=== PATIENT | male | born 1990 | race Two or more races ===

== ENCOUNTER 2021-04-07 11:50 | Emergency (ER) | payer OTHER, SELFPAY ==
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
[2021-04-07 12:23] VITALS: BP 138/87; PULSE 90; RESP 17; TEMP 36.5; O2SAT 98; BMI 33.7
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
== END 2021-04-07 13:44 | disposition home or self-care (01) ==
PROVIDERS: Emergency Provider Emergency Medicine; PCP Internal Medicine
DX: S16.1XXA Strain of muscle, fascia and tendon at neck level, initial encounter (principal); V47.5XXA Car driver injured in collision with fixed or stationary object in traffic accident, initial encounter; Y93.89 Activity, other specified; Y92.410 Unspecified street and highway as the place of occurrence of the external cause; Y99.9 Unspecified external cause status
CPT/HCPCS: 72040; 99283

== ENCOUNTER 2021-04-10 04:56 | Emergency (ER) | payer OTHER, SELFPAY | END 2021-04-10 06:53 | disposition left against medical advice (07) | PROVIDERS: Emergency Provider Emergency Medicine; PCP Internal Medicine | DX: R68.89 Other general symptoms and signs (principal) ==

== ENCOUNTER 2021-04-11 09:36 | Emergency (ER) | payer OTHER, SELFPAY ==
--- NOTE | ~2021-04-11 | XR_ITS ---
EXAMINATION: XR CHEST CLINICAL INFORMATION: Cough. COMPARISON: Chest 03/10/2018. TECHNIQUE: Portable AP upright view of the chest was obtained. FINDINGS: No significant abnormality is noted involving the heart, lungs, mediastinum, bony thorax or soft tissues. XR/XR chest 1V IMPRESSION: Normal chest.
[2021-04-11 09:43] VITALS: BP 118/94; PULSE 125; RESP 22; TEMP 38.8; O2SAT 99; BMI 32.3
[2021-04-11 11:22] LABS: Influenza A PCR NEGATIVE (Negative); Influenza B PCR NEGATIVE (Negative); Resp Syncy Virus RNA Qual PCR NEGATIVE (Negative); SARS COV2 PCR INHOUSE POSITIVE (Negative)
--- NOTE | 2021-04-11 11:51 | ED_ITS ---
HPI - Fever General Chief Complaint: Fever Stated Complaint: Fever Back Pain Chest Wall Pain Time Seen by Provider: 04/11/21 11:43 Source: patient Mode of arrival: ambulatory Limitations: no limitations History of Present Illness HPI Narrative: This is a unvaccinated the 31 years old patient presented to the emergency department complaining of fever, cough or congestion x2 days . He has been exposed to COVID his sister had COVID elicited complaint: fever Onset (ago): day(s) (2) Context: sick contacts and other(s) with similar symptoms Exacerbating factors: nothing Relieving factors: nothing Associated symptoms: myalgias, headache, nasal congestion, sore throat and cough Related Data Previous Rx's Medication Instructions Recorded cyclobenzaprine 10 mg tablet 10 mg PO TID PRN #10 tab 04/07/21 naproxen 500 mg tablet 500 mg PO BID PRN #20 tab 04/07/21 Allergies Allergy/AdvReac Type Severity Reaction Status Date / Time tizanidine Allergy Unknown hives Verified 04/22/19 00:00 No Known Allergies Allergy Unverified 12/31/19 16:06 [No Known Allergies*] Review of Systems Review of Systems: Yes all other systems are reviewed and are negative Constitutional: Constitutional: Reports body ache(s), Reports fatigue and R eports fever(s) ENT: Reports system reviewed and no additional complaints, except as documented Cardiovascular: Cardiovascular: Reports no additional cardiovascular complaints Respiratory: Respiratory: Reports cough Neurologic: Reports system reviewed and no additional complaints, except as documented Endocrine: Endocrine: Reports fatigue PMFSH Past Medical History PMFSH Narrative: Patient denies any past medical history Medical History No known health problems Social History Social History Alcohol intake: current Alcohol intake frequency: a few times a week Patient Tobacco Use Status: Never used Tobacco Use of substances other than those prescribed or required for medical reasons: Yes Substance Use Type: Marijuana Substance Use Frequency: Chronic Longstanding Last Used Substance: Hours (ago) Advance Directives: No Advance Directives Information Provided: No Physical Exam Vital Signs: Vital Signs: Last Vital Signs Temp 99.0 F 04/11/21 13:28 Pulse 89 04/11/21 13:28 Resp 18 04/11/21 13:28 BP 119/75 04/11/21 13:28 Pulse Ox 96 04/11/21 13:28 BMI result Body Mass Index 32.3 Const: General: cooperative, comfortable and no acute distress Orientation/consciousness: patient oriented x3 HENMT: Head: Yes normal to inspection General nose exam: Normal external nose present Face and sinus: Yes normal facial exam Mouth: Normal oral and palatal mucosa present Throat: Yes posterior oropharynx normal Neck: Neck: Yes normal visual inspection and Yes full ROM Chest: Chest palpation & inspection: normal inspection of the chest Resp: Effort & Inspection: normal respiratory effort Auscultation: clear to auscultation bilaterally Cardio: Jugular venous distension: no JVD Rate: regular rate Rhythm: regular rhythm GI: Inspection: Yes normal to inspection Palpation (GI): Soft to palpation, not firm, nontender and no guarding Auscultation: normal bowel sounds Skin: General skin exam: no rashes or lesions noted Rashes: no rashes Wounds: no wounds Neuro: General: patient oriented x3 Course Course Course Narrative: Patient is doing much better repeat vital signs showed the no fever oxygen saturation 96%, remained hemodynamically stable chest x-ray is okay patient can be discharged home safely MDM - Fever Lab Data Labs: Lab Results 04/11/21 Range/Units 10:26 Influenza Type A (PCR) NEGATIVE (Negative) Influenza Type B (PCR) NEGATIVE (Negative) RSV RNA Qual (PCR) NEGATIVE (Negative) SARS-CoV-2 RNA (RT-PCR) POSITIVE A (Negative) Imaging Data Chest x-ray: Radiologist's impression: EXAMINATION: XR CHEST CLINICAL INFORMATION: Cough. COMPARISON: Chest 03/10/2018. TECHNIQUE: Portable AP upright view of the chest was obtained. FINDINGS: No significant abnormality is noted involving the heart, lungs, mediastinum, bony thorax or soft tissues. XR/XR chest 1V IMPRESSION: Normal chest. ? Dictated By: TIN CORTEZ MD Signed By: <Electronically signed by TIN CORTEZ MD in OV> 04/11/21 1259 DD/ 1155 Discharge Plan Discharge Clinical Impression: COVID-19 Patient Disposition: Home, Self-Care Instructions: COVID-19 (Coronavirus Disease 2019) (ED) Prescriptions: No Action naproxen 500 mg tablet 500 mg PO BID PRN (Reason: pain) Qty: 20 RF: 0 cyclobenzaprine 10 mg tablet 10 mg PO TID PRN (Reason: muscle spasm) Qty: 10 RF: 0 Stand Alone Forms: Work/School Release Interventions: ED Discharge Assessment Last Done: 04/11/21 14:12 Discharge Date/Time: 04/11/21 13:50
[2021-04-11 12:00] VITALS: BP 129/88; PULSE 93; RESP 22; TEMP 37.9; O2SAT 96
[2021-04-11] MEDS: Acetaminophen 325 MG TABLET 650 MG PO (12:09)
[2021-04-11] MEDS: Ibuprofen 800 MG TABLET PO (12:09)
[2021-04-11 13:28] VITALS: BP 119/75; PULSE 89; RESP 18; TEMP 37.2; O2SAT 96
== END 2021-04-11 13:50 | disposition home or self-care (01) ==
PROVIDERS: Emergency Provider Emergency Medicine; PCP Internal Medicine
DX: U07.1 COVID-19 (principal)
CPT/HCPCS: 0241U; 71045; 99283; 99284

== ENCOUNTER 2022-07-27 10:46 | Emergency (ER) | payer OTHER, SELFPAY ==
--- NOTE | ~2022-07-27 | CT_ITS ---
EXAMINATION: CT ABDOMEN AND PELVIS WITH CONTRAST CLINICAL INFORMATION: Abdominal pain COMPARISON: None available. TECHNIQUE: Multidetector volumetric images were obtained from the superior aspect of the liver through the pubic symphysis following administration 85 mL of Omnipaque 350 intravenous contrast. Sagittal and coronal reformatted images were obtained on the technologist's workstation. Oral contrast: Yes This CT examination was performed using dose optimization techniques as appropriate, variously including the following: *Automated exposure control *Adjustment of mA and/or kV according to patient size (this includes techniques or standardized protocols for targeted exams where dose is matched to indication/reason for exam; i.e. extremities or head) *Use of iterative reconstruction technique DLP: 769 mGy-cm FINDINGS: LUNG BASES: 5 mm calcified nodule in the lingula probably representing a calcified granuloma. LIVER, GALLBLADDER, AND BILIARY TREE: The liver is low in attenuation suggestive of mild fatty infiltration. The liver is normal in size and contour.. No focal hepatic lesion or biliary ductal dilatation is present. The gallbladder is unremarkable with no evidence of radiopaque gallstones, gallbladder wall thickening, or obvious pericholecystic inflammatory changes. PANCREAS: Unremarkable. SPLEEN: Unremarkable. ADRENAL GLANDS: Unremarkable. KIDNEYS AND URETERS: The kidneys are normal in size, shape, and attenuation. No hydronephrosis, hydroureter, or calculi seen. No perinephric stranding. Small cyst in the lower pole the left kidney. No imaging follow-up recommended. BLADDER: Unremarkable. GASTROINTESTINAL TRACT: There is question of mild wall thickening of the right transverse and left colon and terminal ileum. No evidence of obstruction, perforation or abscess. The appendix is normal. ABDOMINAL WALL: No significant hernia is appreciated. LYMPH NODES: Normal. VASCULAR: Unremarkable. PELVIC VISCERA: Unremarkable. OSSEOUS STRUCTURES: Unremarkable. CT/CT abdomen pelvis w IV con IMPRESSION: Question mild colitis and terminal ileitis. Fleischner guidelines were followed.
[2022-07-27 10:56] VITALS: BP 144/126; PULSE 70; RESP 14; TEMP 36.7; O2SAT 99; BMI 32.8
--- NOTE | 2022-07-27 10:56 | ECG_ITS ---
Test Reason : epigastric pain Blood Pressure : / mmHG Vent. Rate : 067 BPM Atrial Rate : 067 BPM P-R Int : 140 ms QRS Dur : 098 ms QT Int : 458 ms P-R-T Axes : 018 -24 -08 degrees QTc Int : 483 ms Normal sinus rhythm Minimal voltage criteria for LVH, may be normal variant ( R in aVL ) Prolonged QT Abnormal ECG No previous ECGs available Referred By: Generic ED Physician Electronically Signed By:BEV MARKHAM MD
--- NOTE | 2022-07-27 11:03 | ED.GENADULT ---
HPI - General Adult General Chief complaint: ETOH/Substance Use Stated complaint: ETOH, abd pain per EMS Time Seen by Provider: 07/27/22 11:00 Source: patient Mode of arrival: EMS Limitations: no limitations History of Present Illness HPI narrative: presented c/o abdominal pain,used cocain and alcohol just prior to arrival Onset (ago): hour(s) (2) Radiation: non-radiation Severity: moderate Pain Consistency: constant Relieving factors: none Associated symptoms: malaise Related Data Home Medications Medication Instructions Recorded Confirmed No Known Home Meds 07/03/22 07/03/22 Allergies Allergy/AdvReac Type Severity Reaction Status Date / Time tizanidine Allergy Unknown hives Verified 07/27/22 12:53 Review of Systems Constitutional: Constitutional: Reports no additional constitutional complaints ENT: Reports system reviewed and no additional complaints, except as documented Musculoskeletal: Musculoskeletal: Reports no additional musculoskeletal complaints PMFSH Past Medical History [facility] Narrative: alcohol abuse and cocain abuse Medical History (Updated 07/27/22 @ 16:57 by Stanford Connell MD) No known health problems Onychomycosis Surgical History (System 07/27/22 @ 12:53 by Paula Aranda) H/O hernia repair H/O lumbar discectomy Hx of appendectomy Family History Family History (System 07/27/22 @ 12:53 by Paula Aranda) Mother Cancer Father No problems noted. Brother No problems noted. Sister No problems noted. Maternal Grandmother Leukemia Social History Social History (System 07/27/22 @ 12:53 by Paula Aranda) Household Members: Family Housing: Apartment Alcohol intake: current Alcohol intake frequency: a few times a week Alcohol type: beer and hard liquor Patient Tobacco Use Status: Current someday Tobacco user Tobacco use type: Cigarette e-Cigarette/Vaping Use: Never Used Substance Use Type: Marijuana Advance Directives: No service: No Current occupational status: employed Physical Exam ED Vital Signs: Vital Signs - 24 hr 07/27/22 10:56 07/27/22 12:17 07/27/22 14:30 Temperature 98.1 F Pulse Rate 70 71 66 Respiratory Rate 14 16 16 Blood Pressure 144/126 H 128/59 L 153/76 H Pulse Oximetry 99 100 100 Oxygen Delivery Method Room Air Room Air Room Air 07/27/22 16:40 Temperature 97.8 F Pulse Rate 72 Respiratory Rate 18 Blood Pressure 136/72 Pulse Oximetry 97 Oxygen Delivery Method Room Air BMI result Body Mass Index 32.8 Const General: cooperative Orientation/consciousness: patient oriented x3 HENMT Head: Yes normal to inspection General nose exam: Normal external nose present Face and sinus: Yes normal facial exam Mouth: Normal oral and palatal mucosa present Throat: Yes posterior oropharynx normal Neck Neck: Yes normal visual inspection Chest Chest palpation & inspection: normal inspection of the chest Resp Effort & Inspection: normal respiratory effort Auscultation: clear to auscultation bilaterally Cardio Jugular venous distension: no JVD Rate: regular rate Rhythm: regular rhythm GI Inspection: Yes normal to inspection Palpation (GI): Soft to palpation and not firm Auscultation: normal bowel sounds Skin General skin exam: no rashes or lesions noted Lesions: no lesions Rashes: no rashes Neuro General: patient oriented x3 Cranial nerves: Yes CN's II-XII intact bilaterally Course Reevaluation(s) Reevaluation #1: Signed out to Dr Noel Time: 16:56 Medications Administered Discontinued Medications Generic Name Dose Route Start Last Admin Trade Name Freq PRN Reason Stop Dose Admin Famotidine 20 mg 07/27/22 11:01 07/27/22 11:21 Famotidine/Pf 20 Mg/2 Ml Vial IVPUSH 07/27/22 11:02 20 mg ONCE ONE Administration Sodium Chloride 1,000 mls @ 999 mls/hr 07/27/22 11:15 07/27/22 12:16 Ns IVCONT 07/27/22 12:15 Infused .Q1H1M MONA Infusion Sodium Chloride 1,000 mls @ 999 mls/hr 07/27/22 12:45 07/27/22 15:29 Ns IVCONT 07/27/22 13:45 Infused .Q1H1M MONA Infusion Sodium Chloride 1,000 mls @ 999 mls/hr 07/27/22 15:30 07/27/22 16:33 Ns IVCONT 07/27/22 16:30 Infused .Q1H1M MONA Infusion Iohexol 85 ml 07/27/22 13:48 07/27/22 13:50 Iohexol 350 Mg/Ml 75 Ml Infus..Btl IV 07/27/22 13:49 85 ml ONCE ONE Administration Lorazepam 0.5 mg 07/27/22 11:02 07/27/22 11:21 Lorazepam 2 Mg/Ml Vial IVPUSH 07/27/22 11:03 0.5 mg ONCE ONE Administration Lorazepam 1 mg 07/27/22 14:30 07/27/22 14:39 Lorazepam 2 Mg/Ml Vial IVPUSH 07/27/22 14:31 1 mg ONCE ONE Administration Lorazepam 1 mg 07/27/22 15:46 07/27/22 15:50 Lorazepam 2 Mg/Ml Vial IVPUSH 07/27/22 15:47 Not Given ONCE ONE Metoclopramide HCl 10 mg 07/27/22 15:26 07/27/22 15:32 Metoclopramide Hcl 10 Mg/2 Ml Vial IVPUSH 07/27/22 15:27 10 mg ONCE ONE Administration Ondansetron HCl 4 mg 07/27/22 11:01 07/27/22 11:21 Ondansetron Hcl 4 Mg/2 Ml Vial IVPUSH 07/27/22 11:02 4 mg ONCE ONE Administration Ondansetron HCl 4 mg 07/27/22 15:46 07/27/22 15:50 Ondansetron Hcl 4 Mg/2 Ml Vial IVPUSH 07/27/22 15:47 4 mg ONCE ONE Administration Medical Decision Making Medical Decision Making [facility] Narrative: presented with vomiting used cocaine Yesterday will hydrate and give antihemetic Differential Diagnosis Differential Diagnoses: The differential diagnosis associated with the presentation includes gastroenteritis/withdrawal Admission/Observation Consideration of admission/observation: Escalation of care including admission/observation considered Lab Data [facility] Lab Attestation statement: I reviewed the patient's lab results. 07/27/22 11:16 07/27/22 11:16 Labs: Lab Results 07/27/22 07/27/22 07/27/22 Range/Units 11:16 11:16 11:16 WBC 15.1 H (4.8-10.8) X10*3/uL RBC 5.24 (4.60-5.80) X10*6/uL Hgb 15.6 (14.0-18.0) g/dl Hct 43.9 (42.0-52.0) % MCV 83.8 (80.0-98.0) fL MCH 29.8 (27.0-33.0) pg MCHC 35.5 (31.0-36.0) g/dl RDW 12.1 (11.0-16.0) % Plt Count 269 (160-400) X10*3/uL MPV 9.8 (9.4-12.4) fL Immature Gran % (Auto) 0.5 H (0.0-0.4) % Neut % (Auto) 81.1 H (45-73) % Lymph % (Auto) 15.0 L (20-40) % [place] % (Auto) 3.2 (2-11) % Eos % (Auto) 0.1 (0-4) % Baso % (Auto) 0.1 (0-2) % Lymph # (Auto) 2.3 (1.2-4.9) X10*3/uL [place] # (Auto) 0.5 (0.1-1.2) X10*3/uL Eos # (Auto) 0.0 (0.0-0.4) X10*3/uL Baso # (Auto) 0.0 (0.0-0.2) X10*3/uL Abs Immat Gran (auto) 0.07 H (0.00-0.03) X10*3/uL Absolute Neuts (auto) 12.3 H (2.0-8.3) x10*3/uL Absolute Nucleated RBC 0.000 (0.0-0.012) X10*3/uL Nucleated RBC % (auto) 0.0 (0.0-0.2) /100WBC Sodium 141 (135-145) mmol/L Potassium 4.5 (3.3-5.1) mmol/L Chloride 108 (96-108) mmol/L Carbon Dioxide 18 L (22-29) mmol/L Anion Gap 20 (12-20) BUN 14 (9-16) mg/dL Creatinine 1.18 (0.5-1.4) mg/dL Estim Creat Clear Calc 106.2 Estimated GFR > 60 Random Glucose 124 H (60-115) mg/dL Calcium 9.6 (8.4-10.2) mg/dL Total Bilirubin 0.7 (0.0-1.0) mg/dL AST 32 (5-37) U/L ALT 27 (0-40) U/L Alkaline Phosphatase 76 (39-117) U/L Total Protein 7.7 (6.5-8.0) g/dL Albumin 4.5 (3.5-5.0) g/dL Lipase 18 (8-78) U/L Ethyl Alcohol < 10 mg/dL Discharge Plan Discharge Clinical Impression: Vomiting, Cocaine abuse Patient Disposition: Still a Patient Prescriptions: No Action No Known Home Meds
[2022-07-27 11:19] LABS: MANUAL DIFF FLAG NO
[2022-07-27] MEDS: 0.9 % Sodium Chloride 1,000 ML 999 ML IVCONT ×3 (11:21→15:32)
[2022-07-27] MEDS: Famotidine/PF 20 MG/2 ML VIAL IVPUSH (11:21)
[2022-07-27] MEDS: ondansetron HCL 4 MG/2 ML VIAL IVPUSH ×2 (11:21→15:50)
[2022-07-27] MEDS: LORazepam 2 MG/ML VIAL 0.5 MG IVPUSH (11:21)
[2022-07-27 11:22] LABS: Basophils Percent Auto 0.1 % (0-2); Eosinophils Percent Auto 0.1 % (0-4); Hematocrit 43.9 % (42.0-52.0); Hemoglobin 15.6 g/dl (14.0-18.0); Imm Gran Abs Auto 0.07 X10*3/uL (0.00-0.03); Imm Gran Pct Auto 0.5 % (0.0-0.4); Lymphocytes Absolute Auto 2.3 X10*3/uL (1.2-4.9); Mean Corpuscular HGB Conc 35.5 g/dl (31.0-36.0); Mean Corpuscular Hemoglobin 29.8 pg (27.0-33.0); Mean Corpuscular Volume 83.8 fL (80.0-98.0); Mean Platelet Volume 9.8 fL (9.4-12.4); Monocytes Absolute Auto 0.5 X10*3/uL (0.1-1.2); Monocytes Percent Auto 3.2 % (2-11); Neutrophils Absolute Auto 12.3 x10*3/uL (2.0-8.3); Neutrophils Percent Auto 81.1 % (45-73); Platelet Count 269 X10*3/uL (160-400); Red Blood Count 5.24 X10*6/uL (4.60-5.80); Red Cell Distribution Width 12.1 % (11.0-16.0); White Blood Count 15.1 X10*3/uL (4.8-10.8)
[2022-07-27 11:38] LABS: Ethanol < 10 mg/dL
[2022-07-27 11:45] LABS: Alanine Aminotransferase 27 U/L (0-40); Albumin Level 4.5 g/dL (3.5-5.0); Alkaline Phosphatase 76 U/L (39-117); Anion Gap 20 (12-20); Aspartate Amino Transferase 32 U/L (5-37); Bilirubin Total 0.7 mg/dL (0.0-1.0); Blood Urea Nitrogen 14 mg/dL (9-16); Calcium 9.6 mg/dL (8.4-10.2); Carbon Dioxide 18 mmol/L (22-29); Chloride 108 mmol/L (96-108); Creatinine Clr Calc Pharmacy 106.2; Estimated Glomerular Filt Rate > 60; Glucose Random 124 mg/dL (60-115); Lipase 18 U/L (8-78); Potassium 4.5 mmol/L (3.3-5.1); Sodium 141 mmol/L (135-145); Total Protein 7.7 g/dL (6.5-8.0)
[2022-07-27 12:17] VITALS: BP 128/59; PULSE 71; RESP 16; O2SAT 100
[2022-07-27] MEDS: iohexoL 350 MG/ML 75 ML INFUS..BTL 85 ML IV (13:50)
[2022-07-27 14:30] VITALS: BP 153/76; PULSE 66; RESP 16; O2SAT 100
[2022-07-27] MEDS: LORazepam 2 MG/ML VIAL 1 MG IVPUSH (14:39)
[2022-07-27] MEDS: Metoclopramide HCl 10 MG/2 ML VIAL IVPUSH (15:32)
[2022-07-27 16:40] VITALS: BP 136/72; PULSE 72; RESP 18; TEMP 36.6; O2SAT 97
--- NOTE | 2022-07-27 18:21 | PC.NURSE ---
attempting po challenge
--- NOTE | 2022-07-27 18:35 | PC.NURSE ---
tolerating po challenge well
--- NOTE | 2022-07-27 20:35 | PC.NURSE ---
IV line removed with no complications. Pt tolerated well. Discharge instructions reviewed with pt. Pt verbalizes understanding.
== END 2022-07-27 20:36 | disposition home or self-care (01) ==
PROVIDERS: Emergency Medicine; Emergency Provider Emergency Medicine; PCP Internal Medicine
DX: R11.10 Vomiting, unspecified (principal); F14.10 Cocaine abuse, uncomplicated; F10.10 Alcohol abuse, uncomplicated; Y90.0 Blood alcohol level of less than 20 mg/100 ml; F17.210 Nicotine dependence, cigarettes, uncomplicated; F12.90 Cannabis use, unspecified, uncomplicated
CPT/HCPCS: 36415; 74177; 80053; 82077; 83690; 85025; 93005; 96361; 96374; 96375; 96376; 99285; J2060; J2405; J2765; Q9967

== ENCOUNTER 2022-07-28 16:45 | Emergency (ER) | payer OTHER, SELFPAY ==
--- NOTE | ~2022-07-28 | XR_ITS ---
EXAMINATION: XR CHEST CLINICAL INFORMATION: Chest pain. COMPARISON: Chest x-ray 04/11/2021 TECHNIQUE: 2 views of the chest were obtained. FINDINGS: No significant abnormality is noted involving the heart, lungs, mediastinum, bony thorax or soft tissues. XR/XR chest 2V IMPRESSION: Unremarkable examination.
[2022-07-28 16:52] VITALS: BP 131/80; PULSE 82; RESP 18; TEMP 36.9; O2SAT 98; BMI 33.0
--- NOTE | 2022-07-28 16:54 | ED_ITS ---
HPI - Abdominal Pain General Chief Complaint: Abdominal Pain <JIMBO Ramos - Last Filed: 08/05/22 13:18> Stated Complaint: abd pain <JIMBO Ramos - Last Filed: 08/05/22 13:18> Time Seen by Provider: 07/28/22 17:56 <JIMBO Ramos - Last Filed: 08/05/22 13:18> Source: patient <Bakari Moreno MD - Last Filed: 07/28/22 19:35> Mode of arrival: ambulatory <Bakari Moreno MD - Last Filed: 07/28/22 19:35> Limitations: no limitations <Bakari Moreno MD - Last Filed: 07/28/22 19:35> History of Present Illness HPI narrative: A 32-year-old male presented with abdominal pain after he drank alcohol 2 days ago, patient was seen and evaluated in the emergency department yesterday for similar symptoms, patient felt better and was discharged return with severe epigastric pain with nausea and vomiting unable to keep p.o. intake, patient had CT of the abdomen and pelvis which showed colitis/terminal ileitis. Past surgical history is significant for appendectomy and hernia repair. <Bakari Moreno MD - Last Filed: 07/28/22 19:35> Related Data Home Medications: Previous Rx's Medication Instructions Recorded ondansetron 4 mg disintegrating 4 mg PO Q6H PRN nausea and 07/27/22 tablet vomiting #10 tabs omeprazole magnesium 20 mg 20 mg PO ONCE #30 tabs 07/28/22 tablet,delayed release (Prilosec OTC) <JIMBO Ramos - Last Filed: 08/05/22 13:18> Allergies/Adverse Reactions: Allergies Allergy/AdvReac Type Severity Reaction Status Date / Time tizanidine Allergy Unknown hives Verified 07/27/22 12:53 <JIMBO Ramos - Last Filed: 08/05/22 13:18> Review of Systems Review of Systems All other systems are reviewed and are negative Constitutional: Reports as per HPI and Reports no additional constitutional complaints Eyes: Reports as per HPI and Reports no additional eye complaints Reports system reviewed and no additional complaints, except as documented Cardiovascular: Reports as per HPI and Reports no additional cardiovascular complaints Respiratory: Reports as per HPI and Reports no additional respiratory complaints Gastrointestinal: Reports as per HPI and Reports no additional gastrointestinal complaints Genitourinary: Reports no additional female genitourinary complaints Musculoskeletal: Reports no additional musculoskeletal complaints Skin/Breast: Reports system reviewed and no additional complaints, except as docu Psychiatric: Reports no additional psychiatric complaints Endocrine: Reports no additional endocrine complaints Hematologic/Lymphatic: Reports no additional hematologic/lymphatic complaints Allergic/Immunologic: Reports no additional allergic/immunologic complaints Reports system reviewed and no additional complaints, except as documented and Reports Abnormal speech present <Bakari Moreno MD - Last Filed: 07/28/22 19:35> [facility] Past Medical History Medical History: Medical History No known health problems Onychomycosis <JIMBO Ramos - Last Filed: 08/05/22 13:18> Surgical History: Surgical History H/O hernia repair H/O lumbar discectomy Hx of appendectomy <JIMBO Ramos - Last Filed: 08/05/22 13:18> Family History Family History: Family History Mother Cancer Father No problems noted. Brother No problems noted. Sister No problems noted. Maternal Grandmother Leukemia <JIMBO Ramos - Last Filed: 08/05/22 13:18> Social History Social History: Social History Household Members: Family Housing: Apartment Alcohol intake: current Alcohol intake frequency: a few times a month Alcohol type: beer and hard liquor Patient Tobacco Use Status: Current someday Tobacco user Tobacco use type: Cigarette Smoked in Last 30 Days: Yes e-Cigarette/Vaping Use: Never Used Substance Use Type: Marijuana Advance Directives: No Advance Directives Information Provided: No service: No Current occupational status: employed <JIMBO Ramos - Last Filed: 08/05/22 13:18> Physical Exam ED Vital Signs: Vital Signs - 24 hr 07/28/22 16:52 07/28/22 18:06 Temperature 98.4 F Pulse Rate 82 64 Respiratory Rate 18 16 Blood Pressure 131/80 144/83 H Pulse Oximetry 98 97 Oxygen Delivery Method Room Air Room Air BMI result Body Mass Index 33.0 <JIMBO Ramos - Last Filed: 08/05/22 13:18> Vital Signs - 24 hr 07/28/22 16:52 07/28/22 18:06 Temperature 98.4 F Pulse Rate 82 64 Respiratory Rate 18 16 Blood Pressure 131/80 144/83 H Pulse Oximetry 98 97 Oxygen Delivery Method Room Air Room Air BMI result Body Mass Index 33.0 Vital signs have been reviewed as appeared to be correct. Blood pressure normal. Heart rate normal. Respiration rate normal. Temperature normal. Oxygen saturation normal. <Bakari Moreno MD - Last Filed: 07/28/22 19:35> Appearance: Alert. Oriented X3. No acute distress. Head: Normal external exam. Normocephalic. Atraumatic. No Lynne signs noted. No raccoon eyes noted Eyes: PERRLA. EOMI. Conjunctiva and sclera normal. Eyelids normal. ENT: TM's Normal. Pharynx normal. Uvula midline. Moist mucous membranes. No trismus noted. No drooling noted. No muffled voice noted. Neck: Normal inspection. Neck supple. FROM. No adenopathy. Thyroid Normal. No meningeal signs. No neck mass noted. CVS: Normal heart rate and rhythm. Heart sound normal. No murmurs noted. Pulses normal throughout. Respiratory: No respiratory distress. Painless inspiration. Breath sounds normal. No wheezes/rales/rhonchi noted. Chest nontender. No accessory muscle u emily noted or decreased air movement noted. Abdomen: Epigastric tenderness, no guarding, no rebound tenderness. Bowel sounds normal in all 4 quadrants. No distention noted. No organomegaly noted. No visible injury noted. Back: No CVA tenderness. Full range of motion noted. Skin: Skin warm and dry. Normal skin color. Normal skin turgor. No rashes/lesions/lacerations noted. Extremities: No lower extremity edema. Extremities exhibit normal range of motion. Extremities nontender. Neuro: Oriented X 3. Cranial nerve exam: II-XII are grossly intact No motor deficit. No sensory deficit. Reflexes normal. <Bakari Moreno MD - Last Filed: 07/28/22 19:35> Course Course Course Narrative: Patient who was seen here yesterday with CT scan showing mild colitis, is experiencing chest and upper abdominal pain today, denies vomiting EKG chest x-ray labs ordered <JIMBO Ramos - Last Filed: 08/05/22 13:18> Reevaluation(s) Reevaluation #1: A 32-year-old male return to the ED for 2nd visit in 2 days with upper abdominal pain after drinking alcohol 2 days ago, patient had a CT of the abdomen and pelvis yesterday which was a concern of colitis versus terminal ileitis, however clinical history and physical exam is more consistent with alcoholic gastritis, patient now feels better, able to tolerate p.o. intake with no pain, patient was instructed to avoid drinking alcohol and start the patient on Prilosec. Alcohol withdrawal is not likely patient is not a regular alcoholic only on the weekends. <Bakari Moreno MD - Last Filed: 07/28/22 19:35> Time: 19:33 <Bakari Moreno MD - Last Filed: 07/28/22 19:35> Medical Decision Making Differential Diagnosis Differential Diagnoses: The differential diagnosis associated with the presentation includes (Alcoholic gastritis, gastroenteritis, food poisoning, gallbladder disease, vianney ctrolyte disturbance, dehydration, acute renal injury.) <Bakari Moreno MD - Last Filed: 07/28/22 19:35> Lab Data MDM Lab Attestation statement: I reviewed the patient's lab results. <Bakari Moreno MD - Last Filed: 07/28/22 19:35> Result Diagrams: 07/28/22 17:56 07/28/22 17:56 <JIMBO Ramos - Last Filed: 08/05/22 13:18> Labs: Lab Results 07/28/22 07/28/22 07/28/22 Range/Units 17:56 17:56 17:56 WBC 12.8 H (4.8-10.8) X10*3/uL RBC 5.20 (4.60-5.80) X10*6/uL Hgb 15.3 (14.0-18.0) g/dl Hct 44.1 (42.0-52.0) % MCV 84.8 (80.0-98.0) fL MCH 29.4 (27.0-33.0) pg MCHC 34.7 (31.0-36.0) g/dl RDW 12.0 (11.0-16.0) % Plt Count 285 (160-400) X10*3/uL MPV 10.2 (9.4-12.4) fL Immature Gran % (Auto) 0.3 (0.0-0.4) % Neut % (Auto) 76.5 H (45-73) % Lymph % (Auto) 19.0 L (20-40) % [place] % (Auto) 4.0 (2-11) % Eos % (Auto) 0.0 (0-4) % Baso % (Auto) 0.2 (0-2) % Lymph # (Auto) 2.4 (1.2-4.9) X10*3/uL [place] # (Auto) 0.5 (0.1-1.2) X10*3/uL Eos # (Auto) 0.0 (0.0-0.4) X10*3/uL Baso # (Auto) 0.0 (0.0-0.2) X10*3/uL Abs Immat Gran (auto) 0.04 H (0.00-0.03) X10*3/uL Absolute Neuts (auto) 9.8 H (2.0-8.3) x10*3/uL Absolute Nucleated RBC 0.000 (0.0-0.012) X10*3/uL Nucleated RBC % (auto) 0.0 (0.0-0.2) /100WBC Sodium 140 (135-145) mmol/L Potassium 4.1 (3.3-5.1) mmol/L Chloride 105 (96-108) mmol/L Carbon Dioxide 19 L (22-29) mmol/L Anion Gap 20 (12-20) BUN 13 (9-16) mg/dL Creatinine 1.26 (0.5-1.4) mg/dL Estim Creat Clear Calc 102.7 Estimated GFR > 60 Random Glucose 119 H (60-115) mg/dL Lactic Acid (0.5-2.0) mmol/L Calcium 9.6 (8.4-10.2) mg/dL Total Bilirubin 0.7 (0.0-1.0) mg/dL Direct Bilirubin 0.2 (0.0-0.5) mg/dL AST 26 (5-37) U/L ALT 26 (0-40) U/L Alkaline Phosphatase 70 (39-117) U/L Troponin I High Sens 3.0 (<3.5-35.0) ng/L Total Protein 7.6 (6.5-8.0) g/dL Albumin 4.5 (3.5-5.0) g/dL Lipase 19 (8-78) U/L 07/28/22 Range/Units 18:38 WBC (4.8-10.8) X10*3/uL RBC (4.60-5.80) X10*6/uL Hgb (14.0-18.0) g/dl Hct (42.0-52.0) % MCV (80.0-98.0) fL MCH (27.0-33.0) pg MCHC (31.0-36.0) g/dl RDW (11.0-16.0) % Plt Count (160-400) X10*3/uL MPV (9.4-12.4) fL Immature Gran % (Auto) (0.0-0.4) % Neut % (Auto) (45-73) % Lymph % (Auto) (20-40) % [place] % (Auto) (2-11) % Eos % (Auto) (0-4) % Baso % (Auto) (0-2) % Lymph # (Auto) (1.2-4.9) X10*3/uL [place] # (Auto) (0.1-1.2) X10*3/uL Eos # (Auto) (0.0-0.4) X10*3/uL Baso # (Auto) (0.0-0.2) X10*3/uL Abs Immat Gran (auto) (0.00-0.03) X10*3/uL Absolute Neuts (auto) (2.0-8.3) x10*3/uL Absolute Nucleated RBC (0.0-0.012) X10*3/uL Nucleated RBC % (auto) (0.0-0.2) /100WBC Sodium (135-145) mmol/L Potassium (3.3-5.1) mmol/L Chloride (96-108) mmol/L Carbon Dioxide (22-29) mmol/L Anion Gap (12-20) BUN (9-16) mg/dL Creatinine (0.5-1.4) mg/dL Estim Creat Clear Calc Estimated GFR Random Glucose (60-115) mg/dL Lactic Acid 1.2 (0.5-2.0) mmol/L Calcium (8.4-10.2) mg/dL Total Bilirubin (0.0-1.0) mg/dL Direct Bilirubin (0.0-0.5) mg/dL AST (5-37) U/L ALT (0-40) U/L Alkaline Phosphatase (39-117) U/L Troponin I High Sens (<3.5-35.0) ng/L Total Protein (6.5-8.0) g/dL Albumin (3.5-5.0) g/dL Lipase (8-78) U/L <JIMBO Ramos - Last Filed: 08/05/22 13:18> Lab Results 07/28/22 07/28/22 07/28/22 Range/Units 17:56 17:56 17:56 WBC 12.8 H (4.8-10.8) X10*3/uL RBC 5.20 (4.60-5.80) X10*6/uL Hgb 15.3 (14.0-18.0) g/dl Hct 44.1 (42.0-52.0) % MCV 84.8 (80.0-98.0) fL MCH 29.4 (27.0-33.0) pg MCHC 34.7 (31.0-36.0) g/dl RDW 12.0 (11.0-16.0) % Plt Count 285 (160-400) X10*3/uL MPV 10.2 (9.4-12.4) fL Immature Gran % (Auto) 0.3 (0.0-0.4) % Neut % (Auto) 76.5 H (45-73) % Lymph % (Auto) 19.0 L (20-40) % [place] % (Auto) 4.0 (2-11) % Eos % (Auto) 0.0 (0-4) % Baso % (Auto) 0.2 (0-2) % Lymph # (Auto) 2.4 (1.2-4.9) X10*3/uL [place] # (Auto) 0.5 (0.1-1.2) X10*3/uL Eos # (Auto) 0.0 (0.0-0.4) X10*3/uL Baso # (Auto) 0.0 (0.0-0.2) X10*3/uL Abs Immat Gran (auto) 0.04 H (0.00-0.03) X10*3/uL Absolute Neuts (auto) 9.8 H (2.0-8.3) x10*3/uL Absolute Nucleated RBC 0.000 (0.0-0.012) X10*3/uL Nucleated RBC % (auto) 0.0 (0.0-0.2) /100WBC Sodium 140 (135-145) mmol/L Potassium 4.1 (3.3-5.1) mmol/L Chloride 105 (96-108) mmol/L Carbon Dioxide 19 L (22-29) mmol/L Anion Gap 20 (12-20) BUN 13 (9-16) mg/dL Creatinine 1.26 (0.5-1.4) mg/dL Estim Creat Clear Calc 102.7 Estimated GFR > 60 Random Glucose 119 H (60-115) mg/dL Lactic Acid (0.5-2.0) mmol/L Calcium 9.6 (8.4-10.2) mg/dL Total Bilirubin 0.7 (0.0-1.0) mg/dL Direct Bilirubin 0.2 (0.0-0.5) mg/dL AST 26 (5-37) U/L ALT 26 (0-40) U/L Alkaline Phosphatase 70 (39-117) U/L Troponin I High Sens 3.0 (<3.5-35.0) ng/L Total Protein 7.6 (6.5-8.0) g/dL Albumin 4.5 (3.5-5.0) g/dL Lipase 19 (8-78) U/L 07/28/22 Range/Units 18:38 WBC (4.8-10.8) X10*3/uL RBC (4.60-5.80) X10*6/uL Hgb (14.0-18.0) g/dl Hct (42.0-52.0) % MCV (80.0-98.0) fL MCH (27.0-33.0) pg MCHC (31.0-36.0) g/dl RDW (11.0-16.0) % Plt Count (160-400) X10*3/uL MPV (9.4-12.4) fL Immature Gran % (Auto) (0.0-0.4) % Neut % (Auto) (45-73) % Lymph % (Auto) (20-40) % [place] % (Auto) (2-11) % Eos % (Auto) (0-4) % Baso % (Auto) (0-2) % Lymph # (Auto) (1.2-4.9) X10*3/uL [place] # (Auto) (0.1-1.2) X10*3/uL Eos # (Auto) (0.0-0.4) X10*3/uL Baso # (Auto) (0.0-0.2) X10*3/uL Abs Immat Gran (auto) (0.00-0.03) X10*3/uL Absolute Neuts (auto) (2.0-8.3) x10*3/uL Absolute Nucleated RBC (0.0-0.012) X10*3/uL Nucleated RBC % (auto) (0.0-0.2) /100WBC Sodium (135-145) mmol/L Potassium (3.3-5.1) mmol/L Chloride (96-108) mmol/L Carbon Dioxide (22-29) mmol/L Anion Gap (12-20) BUN (9-16) mg/dL Creatinine (0.5-1.4) mg/dL Estim Creat Clear Calc Estimated GFR Random Glucose (60-115) mg/dL Lactic Acid 1.2 (0.5-2.0) mmol/L Calcium (8.4-10.2) mg/dL Total Bilirubin (0.0-1.0) mg/dL Direct Bilirubin (0.0-0.5) mg/dL AST (5-37) U/L ALT (0-40) U/L Alkaline Phosphatase (39-117) U/L Troponin I High Sens (<3.5-35.0) ng/L Total Protein (6.5-8.0) g/dL Albumin (3.5-5.0) g/dL Lipase (8-78) U/L <Bakari Moreno MD - Last Filed: 07/28/22 19:35> Independent Interpretation I performed an independent interpretation of an: CT Scan (Abdomen and pelvis (yesterday): Question of colitis versus ileitis.) <Bakari Moreno MD - Last Filed: 07/28/22 19:35> Radiology Impression Discussion of test interpretation with radiology: I have reviewed the radiologist's reading. <Bakari Moreno MD - Last Filed: 07/28/22 19:35> Medications Administered Discontinued Medications Generic Name Dose Route Start Last Admin Trade Name Freq PRN Reason Stop Dose Admin Al Hydroxide/Mg Hydroxide 30 ml 07/28/22 18:15 07/28/22 19:36 Magnesium Hydrox/Alum Hydrox 30 Ml Oral.Susp PO 07/28/22 18:16 30 ml ONCE ONE Administration Famotidine 20 mg 07/28/22 18:15 07/28/22 18:41 Famotidine/Pf 20 Mg/2 Ml Vial IVPUSH 07/28/22 18:16 20 mg ONCE ONE Administration Sodium Chloride 1,000 mls @ 999 mls/hr 07/28/22 18:15 07/28/22 19:37 Ns IV 07/28/22 19:15 Infused .Q1H1M ONE Infusion Morphine Sulfate 2 mg 07/28/22 18:15 07/28/22 18:41 Morphine Sulfate 2 Mg/Ml Cartridge IVPUSH 07/28/22 18:16 2 mg ONCE ONE Administration Protocol Ondansetron HCl 4 mg 07/28/22 18:15 07/28/22 18:41 Ondansetron Hcl 4 Mg/2 Ml Vial IVPUSH 07/28/22 18:16 4 mg ONCE ONE Administration <JIMBO Ramos - Last Filed: 08/05/22 13:18> Medications Administered Discontinued Medications Generic Name Dose Route Start Last Admin Trade Name Freq PRN Reason Stop Dose Admin Al Hydroxide/Mg Hydroxide 30 ml 07/28/22 18:15 07/28/22 19:36 Magnesium Hydrox/Alum Hydrox 30 Ml Oral.Susp PO 07/28/22 18:16 30 ml ONCE ONE Administration Famotidine 20 mg 07/28/22 18:15 07/28/22 18:41 Famotidine/Pf 20 Mg/2 Ml Vial IVPUSH 07/28/22 18:16 20 mg ONCE ONE Administration Sodium Chloride 1,000 mls @ 999 mls/hr 07/28/22 18:15 07/28/22 19:37 Ns IV 07/28/22 19:15 Infused .Q1H1M ONE Infusion Morphine Sulfate 2 mg 07/28/22 18:15 07/28/22 18:41 Morphine Sulfate 2 Mg/Ml Cartridge IVPUSH 07/28/22 18:16 2 mg ONCE ONE Administration Protocol Ondansetron HCl 4 mg 07/28/22 18:15 07/28/22 18:41 Ondansetron Hcl 4 Mg/2 Ml Vial IVPUSH 07/28/22 18:16 4 mg ONCE ONE Administration <Bakari Moreno MD - Last Filed: 07/28/22 19:35> Discharge Plan Discharge Clinical Impression: Acute alcoholic gastritis <JIMBO Ramos - Last Filed: 08/05/22 13:18> Patient Disposition: Home, Self-Care <JIMBO Ramos - Last Filed: 08/05/22 13:18> Instructions: Gastritis (DC) <JIMBO Ramos - Last Filed: 08/05/22 13:18> Prescriptions: New omeprazole magnesium [Prilosec OTC] 20 mg tablet,delayed release (DR/EC) 20 mg PO ONCE Qty: 30 0RF No Action ondansetron 4 mg tablet,disintegrating 4 mg PO Q6H PRN (Reason: nausea and vomiting) Qty: 10 0RF <JIMBO Ramos - Last Filed: 08/05/22 13:18> Referrals: Holly Munoz MD [Primary Care Provider] - <JIMBO Ramos - Last Filed: 08/05/22 13:18> Stand Alone Forms: Work/School Release <JIMBO Ramos - Last Filed: 08/05/22 13:18> Interventions: ED Discharge Assessment Last Done: 07/28/22 21:06 <JIMBO Ramos - Last Filed: 08/05/22 13:18> Discharge Date/Time: 07/28/22 21:06 <JIMBO Ramos - Last Filed: 08/05/22 13:18>
[2022-07-28 18:06] VITALS: BP 144/83; PULSE 64; RESP 16; O2SAT 97
[2022-07-28 18:06] LABS: MANUAL DIFF FLAG NO
[2022-07-28 18:25] LABS: Alanine Aminotransferase 26 U/L (0-40); Albumin Level 4.5 g/dL (3.5-5.0); Alkaline Phosphatase 70 U/L (39-117); Anion Gap 20 (12-20); Aspartate Amino Transferase 26 U/L (5-37); Bilirubin Direct 0.2 mg/dL (0.0-0.5); Bilirubin Total 0.7 mg/dL (0.0-1.0); Blood Urea Nitrogen 13 mg/dL (9-16); Calcium 9.6 mg/dL (8.4-10.2); Carbon Dioxide 19 mmol/L (22-29); Chloride 105 mmol/L (96-108); Creatinine Clr Calc Pharmacy 102.7; Estimated Glomerular Filt Rate > 60; Glucose Random 119 mg/dL (60-115); Lipase 19 U/L (8-78); Potassium 4.1 mmol/L (3.3-5.1); Sodium 140 mmol/L (135-145); Total Protein 7.6 g/dL (6.5-8.0)
[2022-07-28 18:28] LABS: Basophils Percent Auto 0.2 % (0-2); Hematocrit 44.1 % (42.0-52.0); Hemoglobin 15.3 g/dl (14.0-18.0); Imm Gran Abs Auto 0.04 X10*3/uL (0.00-0.03); Imm Gran Pct Auto 0.3 % (0.0-0.4); Lymphocytes Absolute Auto 2.4 X10*3/uL (1.2-4.9); Mean Corpuscular HGB Conc 34.7 g/dl (31.0-36.0); Mean Corpuscular Hemoglobin 29.4 pg (27.0-33.0); Mean Corpuscular Volume 84.8 fL (80.0-98.0); Mean Platelet Volume 10.2 fL (9.4-12.4); Monocytes Absolute Auto 0.5 X10*3/uL (0.1-1.2); Neutrophils Absolute Auto 9.8 x10*3/uL (2.0-8.3); Neutrophils Percent Auto 76.5 % (45-73); Platelet Count 285 X10*3/uL (160-400); White Blood Count 12.8 X10*3/uL (4.8-10.8)
[2022-07-28] MEDS: Famotidine/PF 20 MG/2 ML VIAL IVPUSH (18:41)
[2022-07-28] MEDS: ondansetron HCL 4 MG/2 ML VIAL IVPUSH (18:41)
[2022-07-28] MEDS: Morphine Sulfate 2 MG/ML CARTRIDGE IVPUSH (18:41)
[2022-07-28] MEDS: 0.9 % Sodium Chloride 1,000 ML 999 ML IV (18:42)
--- NOTE | 2022-07-28 18:50 | PC.NURSE ---
Alert and oriented, pt was seen yesterday for same problem. Vomiting in the room. IV established, labs drawn and sent. Medicated per the MAR, fluids infusing. Call richard within reach. Held maalox due to vomiting at this time.
[2022-07-28 18:52] LABS: Lactic Acid 1.2 mmol/L (0.5-2.0)
[2022-07-28] MEDS: Magnesium Hydrox/Alum Hydrox 30 ML ORAL.SUSP PO (19:36)
== END 2022-07-28 21:06 | disposition home or self-care (01) ==
PROVIDERS: Physician Assistant Medical; Emergency Provider Emergency Medicine; PCP Internal Medicine
DX: K29.20 Alcoholic gastritis without bleeding (principal); F10.20 Alcohol dependence, uncomplicated; Y90.9 Presence of alcohol in blood, level not specified; F17.210 Nicotine dependence, cigarettes, uncomplicated; F12.90 Cannabis use, unspecified, uncomplicated
CPT/HCPCS: 36415; 71046; 80048; 80076; 83605; 83690; 84484; 85025; 87040; 96361; 96374; 96375; 99284; 99285; J2270; J2405

== ENCOUNTER 2022-08-21 09:21 | Outpatient (REF) | payer OTHER, SELFPAY ==
[2022-08-21 13:01] LABS: Anion Gap 11 (12-20)
[2022-08-21 13:06] LABS: Alanine Aminotransferase 23 U/L (0-40); Albumin Level 4.2 g/dL (3.5-5.0); Alkaline Phosphatase 65 U/L (39-117); Aspartate Amino Transferase 16 U/L (5-37); Bilirubin Total 0.7 mg/dL (0.0-1.0); Blood Urea Nitrogen 15 mg/dL (9-16); Calcium 9.5 mg/dL (8.4-10.2); Carbon Dioxide 28 mmol/L (22-29); Chloride 105 mmol/L (96-108); Cholesterol 144 mg/dL; Estimated Glomerular Filt Rate > 60; Glucose Random 124 mg/dL (60-115); HDL Cholesterol 38 mg/dL; LDL Cholesterol Calculated 93 mg/dl; Potassium 3.9 mmol/L (3.3-5.1); Sodium 140 mmol/L (135-145); Total Protein 7.1 g/dL (6.5-8.0); Triglycerides 69 mg/dL
== END 2022-08-21 09:22 | disposition home or self-care (01) ==
LOC: HO.LAB 09:21
PROVIDERS: PCP Nurse Practitioner Family; Visit Provider Nurse Practitioner Family
DX: Z13.1 Encounter for screening for diabetes mellitus (principal); Z13.220 Encounter for screening for lipoid disorders; Z13.29 Encounter for screening for other suspected endocrine disorder
CPT/HCPCS: 36415; 80053; 80061; 84443

== ENCOUNTER 2022-09-06 08:47 | Outpatient (REF) | payer OTHER, SELFPAY ==
[2022-09-06 09:38] LABS: Estimated Average Glucose 91 mg/dL; Hemoglobin A1C 113.1567 umol/L; Hemoglobin A1c % 4.8 %
[2022-09-06 09:56] LABS: Glucose Fasting 96 mg/dL (60-99)
== END 2022-09-06 08:48 | disposition home or self-care (01) ==
LOC: HO.LAB 08:47
PROVIDERS: Visit Provider Nurse Practitioner Family
DX: R73.09 Other abnormal glucose (principal)
CPT/HCPCS: 36415; 82947; 83036

== ENCOUNTER 2023-03-28 09:51 | Emergency (ER) | payer OTHER, SELFPAY | END 2023-03-28 11:14 | disposition left against medical advice (07) | LOC: HO.ED 11:12 | PROVIDERS: Emergency Provider Emergency Medicine; PCP Nurse Practitioner Family | DX: R10.9 Unspecified abdominal pain (principal); R11.10 Vomiting, unspecified; Z53.21 Procedure and treatment not carried out due to patient leaving prior to being seen by health care provider ==

== ENCOUNTER 2023-09-03 09:30 | Outpatient (AMB) | payer OTHER, SELFPAY ==
[2023-09-03 09:35] VITALS: BP 110/72; BMI 26.5
--- NOTE | 2023-09-03 09:35 | MHC.PC.OV ---
Vital Signs 09/03/23 09:35 Height 5 ft 10 in Weight 185 lb BMI 26.5 BP 110/72 Blood Pressure Location Lt brachial Position Sitting Intake Visit Reasons: pe Intake Note: Patient here for a physical exam Manager Sourcing Required: No Accompanied by: Self / Same As Patient Allergies tizanidine Allergy (Unknown, Verified 09/03/23 09:53) hives Medication List - Last Reconciled 09/03/23 by Holly Hatch MD No Known Home Meds Tobacco use date assessed: 09/03/23 Dental Screening Dental Screen Date: 09/03/23 Did you have a dental visit in the last 12 months?: Yes Did you have a dental problem in the last 6 months where you did not have access to dental care?: No Was dental information given to patient?: Patient has dentist HPI HPI Comments History of Present Illness Details This is a 33-year-old male with depression and anxiety that comes for his physical exam. He would like a referral for counseling. No chest pain or shortness of breath. No family history of colon cancer. [facility] Medical History Onychomycosis Surgical History History of hand surgery H/O hernia repair Hx of appendectomy H/O lumbar discectomy Family History Mother Cancer Father No problems noted. Brother No problems noted. Sister No problems noted. 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 1. Little interest or pleasure in doing things: not at all 2. Feeling down, depressed, or hopeless: several days 3. Trouble falling or staying asleep, or sleeping too much: more than half the days 4. Feeling tired or having little energy: not at all 5. Poor appetite or overeating: several days 6. Feeling bad about yourself - or that you are a failure or have let yourself or your family down: not at all 7. Trouble concentrating on things, such as reading the newspaper or watching television: not at all 8. Moving or speaking so slowly that other people could have noticed. Or the opposite - being so fidgety or restless that you have been moving around a lot more than usual: not at all 9. Thoughts that you would be better off or of hurting yourself in some way: not at all Total score: 4 Depression Screening Interpretation: Positive Depression Screening Follow-up: Existing condition Depression Screening Done: Yes 22072 - PHQ-9 Billing: Yes Source: Developed by Drs. Shayan Munoz, Vanessa Corrales, Nigel Zapien and colleagues, with an educational kev from [employer]. Thrive Questionnaire Date Thrive assessed: 07/03/22 AUDIT C Alcohol Use Questionnaire (AUDIT-C) 1. How often do you have a drink containing alcohol?: Never Total Score: 0 Score Reviewed/Action Taken: No VALDEZ-7 AMB Questionnaire VALDEZ-7 Date VALDEZ - 7 assessed: 09/03/23 Feeling nervous, anxious, or on edge: 1 = Several days Not being able to stop or control worryin = Several days Worrying too much about different things: 1 = Several days Trouble relaxin = Several days Being so restless that it is hard to sit still: 0 = Not at all Becoming easily annoyed or irritable: 3 = Nearly every day Feeling afraid as if something awful might happen: 0 = Not at all Total VALDEZ-7 score (0-4 normal; 5-9 mild; 10-14 moderate; 15-21 severe): 7 Source: Developed by Drs. Shayan Munoz, Vanessa Corrales, Nigel Zapien and colleagues, with an educational kev from [employer]. VALDEZ-7 Assessment Billing VALDEZ-7 Assessment Tool: VALDEZ-7 Assessment 40419 Review of Systems Const All systems reviewed & are unremarkable except as noted in HPI and below Eyes Reports no additional complaints, Denies change in vision and Denies other visual disturbances Card Denies chest pain at rest, Denies chest pain with activity, Denies edema, Denies irregular heart rhythm, Denies claudication, Denies dyspnea, Denies dyspnea on exertion, Denies orthopnea, Denies paroxysmal nocturnal dyspnea and Denies slow heart rate Resp Denies cough, Denies dyspnea and Denies dyspnea on exertion GI Denies abdominal pain, Denies change in bowel habits, Denies excessive flatus, Denies nausea and Denies vomiting Denies urinary hesitancy, Denies urinary incontinence and Denies urinary urgency Physical exam (Primary Care) Vital Signs: Last Vital Signs BP 110/72 09/03/23 09:35 BMI result Body Mass Index 26.5 Tobacco/Smoking Status: Tobacco use Status Tobacco use date assessed 09/03/23 09/03/23 09:42 Patient Tobacco Use Status Current everyday Tobacco 09/03/23 09:42 Tobacco use type Cigarette 09/03/23 09:42 e-Cigarette/Vaping Use Never Used 09/03/23 09:42 PHQ-9: PHQ-9 Score PHQ-9: Total score 4 09/03/23 09:42 Depression Screening Interpretation: Positive Depression Screening Follow-up: Existing condition Thrive Assessment: Date of Thrive Assessment Date Thrive assessed 07/03/22 09/03/23 09:42 Const Orientation/consciousness: patient oriented x3 HENMT Head: Yes normal to inspection, Yes normocephalic and Yes atraumatic Ears: external ears normal Eyes General: appearance normal, both eyes and all related structures Eyelids: Yes eyelids normal Conjunctivae: conjunctivae normal Neck Neck: Yes normal visual inspection and Yes supple Resp Effort & Inspection: normal respiratory effort Auscultation: clear to auscultation bilaterally Cardio Jugular venous distension: no JVD Rate: regular rate Rhythm: regular rhythm Heart sounds: S1 normal heart sound present and S2 normal heart sound present GI Inspection: Yes normal to inspection Palpation (GI): Soft to palpation and nontender Auscultation: normal bowel sounds Skin General skin exam: no rashes or lesions noted Neuro General: patient oriented x3 and no focal motor deficits Extrem General: Yes full ROM Psych Appearance: grossly normal Assessment and Plan Assessment & Plan (1) Physical exam: Code(s): Z00.00 - Encounter for general adult medical examination without abnormal findings Plan: Repeat in a year. Coding Level of Care Code Est Pt Prev Care 18-39y(38470) Diagnoses Physical exam Z00.00 Additional Codes VALDEZ-7 Assessment Billing - VALDEZ-7 Assessment Tool: VALDEZ-7 Assessment 90595 ([id number]) Time Spent (min) 31
== END 2023-09-03 10:03 | disposition home or self-care (01) ==
PROVIDERS: PCP Internal Medicine; Visit Provider Internal Medicine
DX: Z00.00 Encounter for general adult medical examination without abnormal findings (principal)
CPT/HCPCS: 99395

== ENCOUNTER 2024-01-20 05:39 | Inpatient (IN) | payer OTHER, SELFPAY ==
[2024-01-20 05:46] VITALS: BP 129/88; PULSE 114; RESP 18; TEMP 36.9; O2SAT 98; BMI 24.5
--- NOTE | 2024-01-20 06:10 | MHC.EDTECH ---
patient changed over with security into hospital gown and pants. patient belongings in C8
[2024-01-20 06:24] LABS: MANUAL DIFF FLAG NO
[2024-01-20 06:25] LABS: Basophils Percent Auto 0.1 % (0-2); Eosinophils Absolute Auto 0.2 X10*3/uL (0.0-0.4); Eosinophils Percent Auto 2.5 % (0-4); Hematocrit 40.5 % (42.0-52.0); Hemoglobin 13.9 g/dl (14.0-18.0); Imm Gran Abs Auto 0.01 X10*3/uL (0.00-0.03); Imm Gran Pct Auto 0.1 % (0.0-0.4); Lymphocytes Absolute Auto 3.5 X10*3/uL (1.2-4.9); Lymphocytes Percent Auto 38.8 % (20-40); Mean Corpuscular HGB Conc 34.3 g/dl (31.0-36.0); Mean Corpuscular Hemoglobin 29.6 pg (27.0-33.0); Mean Corpuscular Volume 86.2 fL (80.0-98.0); Mean Platelet Volume 9.3 fL (9.4-12.4); Monocytes Absolute Auto 0.4 X10*3/uL (0.1-1.2); Monocytes Percent Auto 4.1 % (2-11); Neutrophils Absolute Auto 4.9 x10*3/uL (2.0-8.3); Neutrophils Percent Auto 54.4 % (45-73); Platelet Count 239 X10*3/uL (160-400); Red Cell Distribution Width 11.9 % (11.0-16.0); White Blood Count 9.1 X10*3/uL (4.8-10.8)
[2024-01-20 06:45] LABS: Acetaminophen LAB < 3 mcg/mL (<30); Alanine Aminotransferase 15 U/L (0-40); Albumin Level 4.1 g/dL (3.5-5.0); Alkaline Phosphatase 58 U/L (39-117); Anion Gap 12 (12-20); Aspartate Amino Transferase 20 U/L (5-37); Bilirubin Total 0.3 mg/dL (0.0-1.0); Blood Urea Nitrogen 16 mg/dL (9-16); Calcium 9.5 mg/dL (8.4-10.2); Carbon Dioxide 27 mmol/L (22-29); Chloride 107 mmol/L (96-108); Creatinine Clr Calc Pharmacy 106.3; Estimated Glomerular Filt Rate > 60; Ethanol < 10 mg/dL; Glucose Random 110 mg/dL (60-115); Potassium 3.5 mmol/L (3.3-5.1); Salicylate < 5.0 mg/dL (15-30); Sodium 142 mmol/L (135-145); Total Protein 7.5 g/dL (6.5-8.0)
--- NOTE | 2024-01-20 07:05 | ED_ITS ---
HPI - Psych General Chief Complaint: Psychiatric Symptoms Stated Complaint: thoughts of self harm, alcohol Time Seen by Provider: 01/20/24 07:03 Source: patient Mode of arrival: ambulatory Limitations: no limitations History of Present Illness ED Provider: ABEL HPI Narrative: 33 yo male with no sig PMH no prior psychiatric admissions here with c/o depression and SI states he has been taking percocets on and off. He has thoughts of SI. Plan to d[place] himself in canal. He has never been to a hospital for something like this before. He has no medical complaints. No HI/AH/VH. MD complaint: suicidal ideation and feels depressed Onset (ago): day(s) Duration: intermittent History of same: Yes Relieving factors: other Exacerbating factors: other Context: significant life stressor Associated psychiatric symptoms: depression and suicidal ideation Associated symptoms: denies other symptoms If self harm: admits thoughts of self harm and has plan Related Data Home Medications ?Medication ?Instructions ?Recorded ?Confirmed No Known Home Meds 08/30/22 09/03/23 Allergies Allergy/AdvReac Type Severity Reaction Status Date / Time tizanidine Allergy Unknown hives Verified 01/20/24 05:46 Review of Systems 2 Review of Systems: Constitutional : No Fever, No Chills ENT/Mouth : No Ear Pain, No Nasal Congestion, No sore throat Eyes: No Eye Pain, No Swelling, No Redness Cardiovascular : No Chest Pain, No SOB Respiratory : No Cough, No Sputum, No Dyspnea Gastrointestinal : No Nausea, No Vomiting, No Diarrhea, No Hematochezia, No Melena Genitourinary : No Dysuria, No Urinary Frequency, No Hematuria Musculoskeletal : No Myalgias Skin : No Skin Lesions, No rash Neuro : No Weakness, No Numbness, No Paresthesias, No Dizziness, No Headache Psych : positive Anxiety, positive Depression, positive SI no HI Heme/Lymph: No Lymphadenopathy Endocrine : No Polyuria, No Polydipsia All other systems reviewed and are negative PMFSH Past Medical History Attestation statement: The following information was validated with the patient. Source: old records reviewed Medical History Onychomycosis Surgical History History of hand surgery H/O hernia repair Hx of appendectomy H/O lumbar discectomy Family History Family History Mother Cancer Father No problems noted. Brother No problems noted. Sister No problems noted. Maternal Grandmother Leukemia Social History Social History Household Members: Family Housing: Apartment Alcohol intake: former Patient Tobacco Use Status: Current everyday Tobacco user Tobacco use type: Cigarette Cigarettes Per Day: 10 e-Cigarette/Vaping Use: Never Used Second Hand Smoke Exposure: No Substance Use Type: Marijuana Advance Directives: No Advance Directives Information Provided: Yes service: No Current occupational status: employed Current occupation: [employer] Current occupational exposures/hazards: No Cognitive needs: No Hearing needs: No Vision needs: No Physical Exam 2 Vital Signs: Vital Signs: Last Vital Signs Temp 98.4 F 01/20/24 05:46 Pulse 114 H 01/20/24 05:46 Resp 18 01/20/24 05:46 BP 129/88 01/20/24 05:46 Pulse Ox 98 01/20/24 05:46 O2 Del Method Room Air 01/20/24 05:46 BMI result Body Mass Index 24.5 Appearance: Alert. Oriented X3. No acute distress. Eyes: Pupils equal, round and reactive to light. ENT: Pharynx normal. Neck: Normal inspection. Neck supple. CVS: Normal heart rate and rhythm. Pulses normal. Respiratory: No respiratory distress. Breath sounds normal. Abdomen: Soft and nontender. Skin: Skin warm and dry. Normal skin color. Normal skin turgor. Extremities: No lower extremity edema. No calf ttp Neuro: Oriented X 3. No motor deficit. No sensory deficit. CN2-12 intact Medical Decision Making Medical Decision Making [facility] Narrative: 33 yo male with no sig PMH here with c/o depression and SI at this time he denies any medical complaints will obtain basic labs, CARE team consult and place in observation until cleared. Differential Diagnosis Differential Diagnoses: The differential diagnosis associated with the presentation includes depression, SI Admission/Observation Consideration of admission/observation: Escalation of care including admission/observation considered physician observation started at 719am Consult Healthcare Provider Management of the patient was discussed with: Behavioral Health Provider Lab Data [facility] Lab Attestation statement: I reviewed the patient's lab results. 01/20/24 06:19 01/20/24 06:19 Labs: Lab Results 01/20/24 Range/Units 06:19 WBC 9.1 (4.8-10.8) X10*3/uL RBC 4.70 (4.60-5.80) X10*6/uL Hgb 13.9 L (14.0-18.0) g/dl Hct 40.5 L (42.0-52.0) % MCV 86.2 (80.0-98.0) fL MCH 29.6 (27.0-33.0) pg MCHC 34.3 (31.0-36.0) g/dl RDW 11.9 (11.0-16.0) % Plt Count 239 (160-400) X10*3/uL MPV 9.3 L (9.4-12.4) fL Immature Gran % (Auto) 0.1 (0.0-0.4) % Neut % (Auto) 54.4 (45-73) % Lymph % (Auto) 38.8 (20-40) % [place] % (Auto) 4.1 (2-11) % Eos % (Auto) 2.5 (0-4) % Baso % (Auto) 0.1 (0-2) % Lymph # (Auto) 3.5 (1.2-4.9) X10*3/uL [place] # (Auto) 0.4 (0.1-1.2) X10*3/uL Eos # (Auto) 0.2 (0.0-0.4) X10*3/uL Baso # (Auto) 0.0 (0.0-0.2) X10*3/uL Abs Immat Gran (auto) 0.01 (0.00-0.03) X10*3/uL Absolute Neuts (auto) 4.9 (2.0-8.3) x10*3/uL Absolute Nucleated RBC 0.000 (0.0-0.012) X10*3/uL Nucleated RBC % (auto) 0.0 (0.0-0.2) /100WBC Sodium 142 (135-145) mmol/L Potassium 3.5 (3.3-5.1) mmol/L Chloride 107 (96-108) mmol/L Carbon Dioxide 27 (22-29) mmol/L Anion Gap 12 (12-20) BUN 16 (9-16) mg/dL Creatinine 1.03 (0.5-1.4) mg/dL Estim Creat Clear Calc 106.3 Estimated GFR > 60 Random Glucose 110 (60-115) mg/dL Calcium 9.5 (8.4-10.2) mg/dL Total Bilirubin 0.3 (0.0-1.0) mg/dL AST 20 (5-37) U/L ALT 15 (0-40) U/L Alkaline Phosphatase 58 (39-117) U/L Total Protein 7.5 (6.5-8.0) g/dL Albumin 4.1 (3.5-5.0) g/dL Salicylates < 5.0 L (15-30) mg/dL Acetaminophen < 3 (<30) mcg/mL Ethyl Alcohol < 10 mg/dL External Record Review External record reviewed: Outpatient record Discharge Plan Discharge Clinical Impression: Suicidal ideation Patient Disposition: Still a Patient Prescriptions: No Action No Known Home Meds Print Language: Nepali
--- NOTE | 2024-01-20 09:25 | MHC.CARE ---
Patient gave verbal consent to share information with his collateral contacts; Felipe Whitt [phone] and Rajwinder Coley [phone]
--- NOTE | 2024-01-20 10:26 | MHC.CARE ---
Patient will be an [facility] bed search.
--- NOTE | 2024-01-20 11:12 | ECG_ITS ---
Test Reason : MED CLEARANCE Blood Pressure : / mmHG Vent. Rate : 055 BPM Atrial Rate : 055 BPM P-R Int : 142 ms QRS Dur : 098 ms QT Int : 456 ms P-R-T Axes : 038 -18 007 degrees QTc Int : 436 ms Sinus bradycardia Minimal voltage criteria for LVH, may be normal variant ( R in aVL ) Borderline ECG When compared with ECG of 17-JUL-2016 16:00, Heart rate has decreased Referred By: Dipti Jackson Electronically Signed By:REY KENDALL
--- NOTE | 2024-01-20 11:18 | PC.NURSE ---
patient states he takes no home medications
[2024-01-20 12:02] LABS: Appearance Urine Clear; Color Urine Yellow; Glucose Urine UA Negative (Negative); Leukocyte Esterase Urine Negative (Negative); Nitrite Urine Negative (Negative); Specific Gravity - Urine 1.025 (1.005-1.025); Urine Blood Negative (Negative); Urine Ketones Negative (Negative); Urine Protein Negative (Neg-Trace)
[2024-01-20 12:07] VITALS: BP 110/58; PULSE 64; RESP 16; TEMP 36.4; O2SAT 99
[2024-01-20 12:08] LABS: Amphetamine Screen Urine Not Detected (Not Detect); Barbiturates, Urine Not Detected (Not Detect); Benzodiazepines Screen Urine Not Detected (Not Detect); Buprenorphine Scr Not Detected (Not Detect); Cannabinoid Screen Urine POSITIVE (Not Detect); Cocaine Screen Urine POSITIVE (Not Detect); Fentanyl, urine Not Detected (Not Detect); Methadone Screen, Urine Not Detected (Not Detect); Opiate Screen Urine POSITIVE (Not Detect); Oxycodone Screen Urine Positive (Not Detect); Phencyclidine Screen Urine Not Detected (Not Detect)
[2024-01-20 16:15] VITALS: BP 115/68; PULSE 62; RESP 16; TEMP 36.7; O2SAT 100
[2024-01-20 22:46] VITALS: BP 129/90; PULSE 87; RESP 17; TEMP 36.9; O2SAT 99
[2024-01-21] VITALS (7 sets, daily range): BP systolic 109–165; BP diastolic 64–93; PULSE 60–102; RESP 14–18; TEMP 36.4–38.8; O2SAT 98–100; BMI 23.7
--- NOTE | 2024-01-21 00:39 | PC.NURSE ---
Pt requests something to help him sleep. MD Noel aware stating 9mg Melatonin to be ordered
[2024-01-21] MEDS: Melatonin 3 MG TABLET 9 MG PO (00:48)
--- NOTE | 2024-01-21 03:24 | PC.NURSE ---
Pt still moving around in bed after been given melatonin
[2024-01-21] MEDS: Acetaminophen 325 MG TABLET 975 MG PO (04:20)
--- NOTE | 2024-01-21 06:11 | PC.NURSE ---
Pt had come out of room c/o headache, 975mg Tylenol given. COWS score was provided to MD who states to continue to keep an eye on pt.
--- NOTE | 2024-01-21 06:14 | PC.NURSE ---
Cooperative with staff throughout the night.
--- NOTE | 2024-01-21 07:03 | PC.NURSE ---
Assumed care of PT a 0645. At this time the PT is observed to be resting quietly in their bed. No distress observed, breathing is even and unlabored.
[2024-01-21] MEDS: LORazepam 1 MG TABLET 2 MG PO (08:53)
[2024-01-21] MEDS: Gabapentin 100 MG CAPSULE PO (08:53)
[2024-01-21] MEDS: Ibuprofen 600 MG TABLET PO (08:53)
[2024-01-21] MEDS: hydrOXYzine HCL 50 MG TABLET PO (08:53)
[2024-01-21] MEDS: Ondansetron ODT 4 MG TAB.RAPDIS TRANSLINGU (09:02)
[2024-01-21] MEDS: LORazepam 2 MG/ML VIAL IM (09:44)
[2024-01-21] MEDS: Metoclopramide HCl 10 MG/2 ML VIAL IM (09:45)
--- NOTE | 2024-01-21 10:30 | MHC.RECOVRN ---
Briefly met with pt in [facility]3, along with agile coach Kevin, after provider request due to opioid withdrawal. Pt initially declined MOUD to address withdrawal symptoms. Currently experiencing restlessness, vomiting, diaphoretic, anxious, irritable, piloerection, rhinorrhea. Pt reports using Percocet, 6 30 mg tabs daily, IN. Educated pt on MOUD and ability to taper as pt reports he does not want to continue after discharge. Pt agreeable. Discussed with ED provider as well as Micaela Gee APRN.
[2024-01-21] MEDS: methADONE HCl 20 MG/2 ML ORAL.CONC 40 MG PO (11:00)
--- NOTE | 2024-01-21 14:41 | MHC.RECOVRN ---
Followed up with pt after receiving methadone. Pt laying in bed, asleep, appears comfortable, wakes to voice. Pt reports feeling better, denies withdrawal symptoms. Would like to taper methadone. Denies questions or concerns for t/w. Discussed with Micaela Gee APRN.
--- NOTE | 2024-01-21 15:43 | HO.PSYADMNOT ---
HPI Date of Service: 01/21/24 Chief Complaint: crisis Sources of Information: patient interviewed, chart reviewed and crisis/core team assessment reviewed HPI Subjective Notes: Newman Warning and Conditional Voluntary Narrative: Patient is a 33-year-old male who self presented to [facility] with suicidal ideation of [place] secondary to increased depression. Per crisis report, patient reports feeling depressed. He reported experiencing increased depression for several months and has been uncontrollably crying. He reports using opiates, smoking marijuana and cigarettes daily to distract himself. Patient reports that he has been using Percocets for 4 years. Patient expressed that he does not know why he feels depressed. Patient denied HI/AH/VH. He reported that his sleep and appetite are poor. Patient denied any history of mental illness. During admission assessment, this automobile and property underwriter reviewed conditional voluntary and newman warning. Patient agreed to treatment however was too tired to complete admission assessment and asked to speak tomorrow. Patient was seen by addiction medicine. Past Psychiatric History: Unknown Medical Evaluation Reviewed: Yes FOR[facility]LY [facility], [facility] Medical History Onychomycosis Surgical History History of hand surgery H/O hernia repair Hx of appendectomy H/O lumbar discectomy Family History: Unknown Social History: Lives with his girlfriend, 3 kids( 15 y/o, 11y/o and 17 days old), works full-time. Substance History: Patient reports that he uses Percocets intranasally and smokes marijuana daily. Trauma History: Yes Diagnostics Vital Signs (24Hr): Vital Signs - 24 hr 01/20/24 16:15 01/20/24 22:46 01/21/24 04:02 Temperature 98.1 F 98.5 F 98.4 F Pulse Rate 62 87 70 Respiratory Rate 16 17 16 Blood Pressure 115/68 129/90 H 126/93 H Pulse Oximetry 100 99 100 Oxygen Delivery Method Room Air Room Air Room Air 01/21/24 11:48 01/21/24 13:13 Temperature 99.1 F 97.5 F Pulse Rate 65 60 Respiratory Rate 18 14 Blood Pressure 127/77 165/86 H Pulse Oximetry 98 99 Oxygen Delivery Method Room Air BMI result Body Mass Index 23.7 Labs 01/20/24 06:19 01/20/24 06:19 Labs: Laboratory Results - last 48 hr 01/20/24 01/20/24 06:19 11:45 WBC 9.1 RBC 4.70 Hgb 13.9 L Hct 40.5 L MCV 86.2 MCH 29.6 MCHC 34.3 RDW 11.9 Plt Count 239 MPV 9.3 L Immature Gran % (Auto) 0.1 Neut % (Auto) 54.4 Lymph % (Auto) 38.8 [place] % (Auto) 4.1 Eos % (Auto) 2.5 Baso % (Auto) 0.1 Lymph # (Auto) 3.5 [place] # (Auto) 0.4 Eos # (Auto) 0.2 Baso # (Auto) 0.0 Abs Immat Gran (auto) 0.01 Absolute Neuts (auto) 4.9 Absolute Nucleated RBC 0.000 Nucleated RBC % (auto) 0.0 Sodium 142 Potassium 3.5 Chloride 107 Carbon Dioxide 27 Anion Gap 12 BUN 16 Creatinine 1.03 Estim Creat Clear Calc 106.3 Estimated GFR > 60 Random Glucose 110 Calcium 9.5 Total Bilirubin 0.3 AST 20 ALT 15 Alkaline Phosphatase 58 Total Protein 7.5 Albumin 4.1 Urine Color Yellow Urine Appearance Clear Urine pH 6.0 Ur Specific [place] 1.025 Urine Protein Negative Urine Glucose (UA) Negative Urine Ketones Negative Urine Blood Negative Urine Nitrite Negative Ur Leukocyte Esterase Negative Salicylates < 5.0 L Urine Opiates Screen POSITIVE H Ur Buprenorphine Scrn Not Detected Ur Oxycodone Screen Positive H Urine Methadone Screen Not Detected Urine Fentanyl Screen Not Detected Acetaminophen < 3 Ur Barbiturates Screen Not Detected Ur Phencyclidine Scrn Not Detected Ur Amphetamines Screen Not Detected U Benzodiazepines Scrn Not Detected Urine Cocaine Screen POSITIVE H U Marijuana (THC) Screen POSITIVE H Ethyl Alcohol < 10 Meds/Allergies Meds Home Medications ?Medication ?Instructions ?Recorded ?Confirmed ?Type No Known Home Meds 08/30/22 01/20/24 History Allergies Allergies Allergy/AdvReac Type Severity Reaction Status Date / Time tizanidine Allergy Unknown hives Verified 01/20/24 05:46 Mental Status Exam Mental Status Exam Patient Appearance: Appropriate Patient Orientation: Person, Place, Time and Situation Level of Consciousness: Drowsy Patient Behavior: Appropriate and Cooperative Affect Description: Calm Speech Pattern: Clear Assessment & Plan Assessment & Plan (1) Depressive disorder: Status: Acute Code(s): F32.A - Depression, unspecified (2) PTSD (post-traumatic stress disorder): Status: Acute Code(s): F43.10 - Post-traumatic stress disorder, unspecified (3) Opioid use disorder: Status: Acute Code(s): F11.90 - Opioid use, unspecified, uncomplicated Plan Patient is a 33-year-old male who self presented to [facility] with suicidal ideation of [place] secondary to increased depression. Plan: CV 15 minute safety checks Addiction medicine consult Obtain collateral Discussed possible need for medications Referral to outpatient psychiatric providers Encourage groups Discharge planning Patient educated on: other (unable d/t pt asking to meet tomorrow) Reason for continued inpatient stay Substantial Risk for: harm to self and med/psych decompensation Statement Statement: I have reviewed the history and physical and performed a pertinent examination on my patient. No changes have occurred unless specified. If the History and Physical was not performed prior to admission, the Hospitalist's service will be consulted for completing the admission physical. Time Spent With Patient Time: Total time managing care of this patient today _30___ minutes.
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
[2024-01-21] MEDS: Acetaminophen 325 MG TABLET 650 MG PO (21:07)
[2024-01-21] MEDS: Ondansetron ODT 8 MG TAB.RAPDIS TRANSLINGU (21:07)
[2024-01-21] MEDS: hydrOXYzine HCL 25 MG TABLET PO (21:07)
[2024-01-22 07:20] VITALS: BP 125/79; PULSE 60; RESP 20; TEMP 37.2; O2SAT 99
[2024-01-22] MEDS: methADONE HCl 20 MG/2 ML ORAL.CONC 30 MG PO (08:15)
[2024-01-22] MEDS: Acetaminophen 325 MG TABLET 650 MG PO (08:20)
[2024-01-22] MEDS: hydrOXYzine HCL 25 MG TABLET PO ×2 (08:20→17:29)
[2024-01-22 08:41] LABS: Alanine Aminotransferase 18 U/L (0-40); Albumin Level 4.3 g/dL (3.5-5.0); Alkaline Phosphatase 61 U/L (39-117); Anion Gap 12 (12-20); Aspartate Amino Transferase 22 U/L (5-37); Bilirubin Total 0.5 mg/dL (0.0-1.0); Blood Urea Nitrogen 16 mg/dL (9-16); Calcium 9.9 mg/dL (8.4-10.2); Carbon Dioxide 27 mmol/L (22-29); Chloride 105 mmol/L (96-108); Cholesterol 128 mg/dL (<200); Creatinine Clr Calc Pharmacy 124.4; Estimated Glomerular Filt Rate > 60; Glucose Fasting 98 mg/dL (60-99); HDL Cholesterol 39 mg/dL (>40); LDL Cholesterol Calculated 75 mg/dL (<100); Potassium 3.8 mmol/L (3.3-5.1); Sodium 140 mmol/L (135-145); Total Protein 7.9 g/dL (6.5-8.0); Triglycerides 70 mg/dL (<150)
--- NOTE | 2024-01-22 08:56 | HO.PSYCHPN ---
Subjective Subjective Date of Service: 01/22/24 Reason For Visit: crisis Subjective Notes: Conditional Voluntary Interim History: Reviewed with Dr. Parks. Active on unit. Social with peers. Tearful during 1:1. Patient reports feeling depressed and has been using Percocets, cocaine and marijuana to self medicate. Patient reports he has been using for the past 5 years. Denies hx of inpatient psychiatric admissions or detox. Denies history of outpatient psychiatric providers however, states he would like referrals to a therapist and prescriber. Patient stated, I think it was the side effects from the combination of alcohol and opiates. I just felt like I was going to hurt myself so I came to the hospital. I got 3 kids I have to take care of. I want to get my head straight. I'm just happy to talk to somebody . Patient reports he has been working 2 jobs to try to support his family. Patient stated, I don't want to do drugs anymore. I want to be there for my kids. I will do whatever I have to do to feel better.I'm open to any kind of treatment that can help . Pt denies SI/HI/VH/AH. Discussed risks/benefits of SSRI's; pt agreed to trial. Medication Compliance: Yes Side effects from medications: No Attending Groups: Intermittent Review of Systems Constitutional: Reports as per HPI Eyes: Reports as per HPI Reports as per HPI Cardiovascular: Reports as per HPI Respiratory: Reports as per HPI Gastrointestinal: Reports as per HPI Genitourinary: Reports as per HPI Musculoskeletal: Reports as per HPI Skin/Breast: Reports as per HPI Reports as per HPI Psychiatric: Reports as per HPI Endocrine: Reports as per HPI Hematologic/Lymphatic: Reports as per HPI Allergic/Immunologic: Reports as per HPI Mental Status Exam Mental Status Exam Narrative: Pt is alert and oriented; behavior is cooperative, tearful; dressed in casual attire; mood is described as depressed ; eye contact appropriate; Speech is normal rate, volume and not pressured; thought process is organized and goal directed; Thought content is on tx; otherwise pertinent to relevant topics and without any delusional content, paranoid ideations or grandiosity; denies SI/HI/VH/AH. Diagnostics Vital Signs (24Hr): Vital Signs - 24 hr 01/21/24 11:48 01/21/24 13:13 01/21/24 16:52 Temperature 99.1 F 97.5 F Pulse Rate 65 60 81 Respiratory Rate 18 14 Blood Pressure 127/77 165/86 H 109/64 Pulse Oximetry 98 99 Oxygen Delivery Method Room Air 01/21/24 20:00 01/21/24 22:50 01/22/24 07:20 Temperature 102 F H 98.1 F 99.0 F Pulse Rate 102 H 102 H 60 Respiratory Rate 16 16 20 Blood Pressure 122/71 120/72 125/79 Pulse Oximetry 99 99 99 Oxygen Delivery Method Room Air Room Air Room Air BMI result Body Mass Index 23.7 Labs 01/20/24 06:19 01/22/24 08:03 Labs: Laboratory Results - last 48 hr 01/20/24 01/22/24 11:45 08:03 Sodium 140 Potassium 3.8 Chloride 105 Carbon Dioxide 27 Anion Gap 12 BUN 16 Creatinine 0.88 Estim Creat Clear Calc 124.4 Estimated GFR > 60 Fasting Glucose 98 Calcium 9.9 Total Bilirubin 0.5 AST 22 ALT 18 Alkaline Phosphatase 61 Total Protein 7.9 Albumin 4.3 Triglycerides 70 Cholesterol 128 LDL Cholesterol, Calc 75 HDL Cholesterol 39 L Urine Color Yellow Urine Appearance Clear Urine pH 6.0 Ur Specific [place] 1.025 Urine Protein Negative Urine Glucose (UA) Negative Urine Ketones Negative Urine Blood Negative Urine Nitrite Negative Ur Leukocyte Esterase Negative Urine Opiates Screen POSITIVE H Ur Buprenorphine Scrn Not Detected Ur Oxycodone Screen Positive H Urine Methadone Screen Not Detected Urine Fentanyl Screen Not Detected Ur Barbiturates Screen Not Detected Ur Phencyclidine Scrn Not Detected Ur Amphetamines Screen Not Detected U Benzodiazepines Scrn Not Detected Urine Cocaine Screen POSITIVE H U Marijuana (THC) Screen POSITIVE H Medications Medications Current Medications Acetaminophen (Acetaminophen 325 Mg Tablet) 650 mg PO Q6H PRN PRN Reason: Headache/Pain Mild Scale (1-3) Last Admin: 01/22/24 08:20 Dose: 650 mg Al Hydroxide/Mg Hydroxide (Magnesium Hydrox/Alum Hydrox 30 Ml Oral.Susp) 30 ml PO Q6H PRN PRN Reason: Heartburn/Nausea Hydroxyzine HCl (Hydroxyzine Hcl 25 Mg Tablet) 25 mg PO Q6H PRN PRN Reason: Anxiety Last Admin: 01/22/24 08:20 Dose: 25 mg Ibuprofen (Ibuprofen 600 Mg Tablet) 600 mg PO Q6H PRN PRN Reason: Pain, Moderate(Pain Scale 4-6) Magnesium Hydroxide (Milk Of Magnesia 30 Ml Oral.Susp) 30 ml PO DAILY PRN PRN Reason: Constipation Methadone HCl (Methadone Hcl 20 Mg/2 Ml Oral.Conc) 30 mg PO DAILY MONA Last Admin: 01/22/24 08:50 Dose: Not Given Nicotine (Nicotine 21 Mg Patch.Td24) 21 mg TRANSDERMA DAILY [facility] Nicotine Polacrilex (Nicotine Polacrilex 2 Mg Gum) 4 mg BUCCAL Q2H PRN PRN Reason: Nicotine Cravings Ondansetron HCl (Ondansetron Odt 8 Mg Tab.Rapdis) 8 mg TRANSLINGU Q8H PRN PRN Reason: Nausea and Vomiting Last Admin: 01/21/24 21:07 Dose: 8 mg Trazodone HCl (Trazodone Hcl 50 Mg Tablet) 50 mg PO BEDTIME MRX1 PRN PRN Reason: Insomnia Allergies Allergies Allergy/AdvReac Type Severity Reaction Status Date / Time tizanidine Allergy Unknown hives Verified 01/20/24 05:46 Assessment & Plan Assessment & Plan (1) Depressive disorder: Status: Acute Code(s): F32.A - Depression, unspecified (2) PTSD (post-traumatic stress disorder): Status: Acute Code(s): F43.10 - Post-traumatic stress disorder, unspecified (3) Opioid use disorder: Status: Acute Code(s): F11.90 - Opioid use, unspecified, uncomplicated Plan Patient is a 33-year-old male who self presented to [facility] with suicidal ideation of [place] secondary to increased depression. Plan: CV 15 minute safety checks Addiction medicine consult Obtain collateral Discussed possible need for medications Referral to outpatient psychiatric providers Encourage groups Discharge planning 01/21: Active on unit. Social with peers. Tearful during 1:1. Patient reports feeling depressed and has been using Percocets, cocaine and marijuana to self medicate. Patient reports he has been using for the past 5 years. Denies hx of inpatient psychiatric admissions or detox. Denies history of outpatient psychiatric providers however, states he would like referrals to a therapist and prescriber. Patient stated, I think it was the side effects from the combination of alcohol and opiates. I just felt like I was going to hurt myself so I came to the hospital. I got 3 kids I have to take care of. I want to get my head straight. I'm just happy to talk to somebody . Patient reports he has been working 2 jobs to try to support his family. Patient stated, I don't want to do drugs anymore. I want to be there for my kids. I will do whatever I have to do to feel better.I'm open to any kind of treatment that can help . Pt denies SI/HI/VH/AH. Discussed risks/benefits of SSRI's; pt agreed to trial. Start: Prozac 20mg PO daily Patient educated on: diagnosis, medication risk/benefits, substance abuse and therapeutic strategies Informed Consent: understands Reason for continued inpatient stay Substantial Risk for: med/psych decompensation Time Spent With Patient Time: Total time managing care of this patient today _30___ minutes.
[2024-01-22 09:43] VITALS: TEMP 36.4
--- NOTE | 2024-01-22 10:27 | MHC.RECOVRN ---
Met with pt to follow up after receiving 30 mg methadone this morning. Pt awake, alert, easily engages in conversation, active in the milieu. Pt reports feeling so much better and is grateful to be not suffering. Discussed MOUD further, pt continues to decline and would like to continue tapering. Pt declines questions or concerns at this time. Discussed with Micaela Gee APRN.
--- NOTE | 2024-01-22 15:07 | MHC.CLN ---
NUTRITION CONSULT FOR UNKNOWN WEIGHT LOSS. REVIEW OF WEIGHT HX SHOWS APPROX 20#, -10.6% WEIGHT LOSS X 5 MONTHS. POOR APPETITE REPORTED PRIOR TO ADMISSION. ADDING MAGIC CUP FORTIFIED ICE CREAM BID TO INCREASE KCAL INTAKE. SUPPLEMENT PROVIDES 580 KCALS, 18 G PROTEIN. PLEASE CONSULT RD IF POOR PO.
[2024-01-22 17:25] VITALS: BP 124/75; PULSE 68; RESP 18; TEMP 36.1; O2SAT 99
[2024-01-22] MEDS: Ibuprofen 600 MG TABLET PO (17:30)
--- NOTE | 2024-01-22 18:53 | MHC.RECOVSUP ---
? Reason for consult Recovery support o Current location: [phone] o Identified substance use concern: Heroin - Support ? Intervention: o Community resources provided o Harm reduction discussion ? Plan: o Patient to follow up with [facility] after discharge ? Additional information: Met with Patient and we talked about recovery and different pathways.. We also had a harm reduction talk.. Patient stated that he would like a quality assurance coach a referral was made
[2024-01-22 20:00] VITALS: BP 122/83; PULSE 73; RESP 16; TEMP 36.5; O2SAT 96
[2024-01-22] MEDS: Melatonin 3 MG TABLET 6 MG PO (22:19)
[2024-01-23 07:00] VITALS: BMI 24.2
[2024-01-23 08:00] VITALS: BP 116/65; PULSE 61; RESP 16; TEMP 36.9; O2SAT 100
[2024-01-23] MEDS: methADONE HCl 20 MG/2 ML ORAL.CONC 30 MG PO (08:06)
[2024-01-23] MEDS: FLUoxetine HCl 20 MG CAPSULE PO (08:24)
--- NOTE | 2024-01-23 09:14 | HO.PSYCHPN ---
Subjective Subjective Date of Service: 01/23/24 Reason For Visit: crisis Subjective Notes: Conditional Voluntary Interim History: Reviewed with Dr. Parks. Active on unit. Social with peers. Patient reports feeling better today; pt stated, I'm getting clean for me. I know I need to get clean for my family. I know I'm capable of doing alot of positive things . Pt reports he plans on following up with outpatient methadone and slowly tapering off. denies SI/HI/VH/AH. denies side effects from Prozac. Continue current tx plan. Labs ordered: Hepititis panel and HIV Medication Compliance: Yes Side effects from medications: No Attending Groups: Yes Review of Systems Constitutional: Reports as per HPI Eyes: Reports as per HPI Reports as per HPI Cardiovascular: Reports as per HPI Respiratory: Reports as per HPI Gastrointestinal: Reports as per HPI Genitourinary: Reports as per HPI Musculoskeletal: Reports as per HPI Skin/Breast: Reports as per HPI Reports as per HPI Psychiatric: Reports as per HPI Endocrine: Reports as per HPI Hematologic/Lymphatic: Reports as per HPI Allergic/Immunologic: Reports as per HPI Mental Status Exam Mental Status Exam Narrative: Pt is alert and oriented; behavior is cooperative, tearful; dressed in casual attire; mood is described as okay ; eye contact appropriate; Speech is normal rate, volume and not pressured; thought process is organized and goal directed; Thought content is on tx; otherwise pertinent to relevant topics and without any delusional content, paranoid ideations or grandiosity; denies SI/HI/VH/AH. Diagnostics Vital Signs (24Hr): Vital Signs - 24 hr 01/22/24 09:43 01/22/24 17:25 01/22/24 20:00 Temperature 97.5 F 97.0 F 97.7 F Pulse Rate 68 73 Respiratory Rate 18 16 Blood Pressure 124/75 122/83 Pulse Oximetry 99 96 Oxygen Delivery Method Room Air Room Air 01/23/24 08:00 Temperature 98.4 F Pulse Rate 61 Respiratory Rate 16 Blood Pressure 116/65 Pulse Oximetry 100 Oxygen Delivery Method Room Air BMI result Body Mass Index 23.7 Labs 01/20/24 06:19 01/22/24 08:03 Labs: Laboratory Results - last 48 hr 01/22/24 08:03 Sodium 140 Potassium 3.8 Chloride 105 Carbon Dioxide 27 Anion Gap 12 BUN 16 Creatinine 0.88 Estim Creat Clear Calc 124.4 Estimated GFR > 60 Fasting Glucose 98 Calcium 9.9 Total Bilirubin 0.5 AST 22 ALT 18 Alkaline Phosphatase 61 Total Protein 7.9 Albumin 4.3 Triglycerides 70 Cholesterol 128 LDL Cholesterol, Calc 75 HDL Cholesterol 39 L Medications Medications Current Medications Acetaminophen (Acetaminophen 325 Mg Tablet) 650 mg PO Q6H PRN PRN Reason: Headache/Pain Mild Scale (1-3) Last Admin: 01/22/24 08:20 Dose: 650 mg Al Hydroxide/Mg Hydroxide (Magnesium Hydrox/Alum Hydrox 30 Ml Oral.Susp) 30 ml PO Q6H PRN PRN Reason: Heartburn/Nausea Fluoxetine HCl (Fluoxetine Hcl 20 Mg Capsule) 20 mg PO DAILY [facility] Last Admin: 01/23/24 08:24 Dose: 20 mg Hydroxyzine HCl (Hydroxyzine Hcl 25 Mg Tablet) 25 mg PO Q6H PRN PRN Reason: Anxiety Last Admin: 01/22/24 17:29 Dose: 25 mg Ibuprofen (Ibuprofen 600 Mg Tablet) 600 mg PO Q6H PRN PRN Reason: Pain, Moderate(Pain Scale 4-6) Last Admin: 01/22/24 17:30 Dose: 600 mg Magnesium Hydroxide (Milk Of Magnesia 30 Ml Oral.Susp) 30 ml PO DAILY PRN PRN Reason: Constipation Melatonin (Melatonin 3 Mg Tablet) 6 mg PO BEDTIME [facility] Last Admin: 01/22/24 22:19 Dose: 6 mg Methadone HCl (Methadone Hcl 20 Mg/2 Ml Oral.Conc) 30 mg PO DAILY@0800 [facility] Last Admin: 01/23/24 08:06 Dose: 30 mg Nicotine (Nicotine 21 Mg Patch.Td24) 21 mg TRANSDERMA DAILY [facility] Last Admin: 01/23/24 08:25 Dose: Not Given Nicotine Polacrilex (Nicotine Polacrilex 2 Mg Gum) 4 mg BUCCAL Q2H PRN PRN Reason: Nicotine Cravings Ondansetron HCl (Ondansetron Odt 8 Mg Tab.Rapdis) 8 mg TRANSLINGU Q8H PRN PRN Reason: Nausea and Vomiting Last Admin: 01/21/24 21:07 Dose: 8 mg Trazodone HCl (Trazodone Hcl 50 Mg Tablet) 50 mg PO BEDTIME MRX1 PRN PRN Reason: Insomnia Allergies Allergies Allergy/AdvReac Type Severity Reaction Status Date / Time tizanidine Allergy Unknown hives Verified 01/20/24 05:46 Assessment & Plan Assessment & Plan (1) Depressive disorder: Status: Acute Code(s): F32.A - Depression, unspecified (2) PTSD (post-traumatic stress disorder): Status: Acute Code(s): F43.10 - Post-traumatic stress disorder, unspecified (3) Opioid use disorder: Status: Acute Code(s): F11.90 - Opioid use, unspecified, uncomplicated Plan Patient is a 33-year-old male who self presented to [facility] with suicidal ideation of [place] secondary to increased depression. Plan: CV 15 minute safety checks Addiction medicine consult Obtain collateral Discussed possible need for medications Referral to outpatient psychiatric providers Encourage groups Discharge planning 01/21: Active on unit. Social with peers. Tearful during 1:1. Patient reports feeling depressed and has been using Percocets, cocaine and marijuana to self medicate. Patient reports he has been using for the past 5 years. Denies hx of inpatient psychiatric admissions or detox. Denies history of outpatient psychiatric providers however, states he would like referrals to a therapist and prescriber. Patient stated, I think it was the side effects from the combination of alcohol and opiates. I just felt like I was going to hurt myself so I came to the hospital. I got 3 kids I have to take care of. I want to get my head straight. I'm just happy to talk to somebody . Patient reports he has been working 2 jobs to try to support his family. Patient stated, I don't want to do drugs anymore. I want to be there for my kids. I will do whatever I have to do to feel better.I'm open to any kind of treatment that can help . Pt denies SI/HI/VH/AH. Discussed risks/benefits of SSRI's; pt agreed to trial. Start: Prozac 20mg PO daily 01/22: Patient reports feeling better today; pt stated, I'm getting clean for me. I know I need to get clean for my family. I know I'm capable of doing alot of positive things . Pt reports he plans on following up with outpatient methadone and slowly tapering off. denies SI/HI/VH/AH. denies side effects from Prozac. Continue current tx plan. Labs ordered: Hepatitis panel and HIV Patient educated on: diagnosis, medication risk/benefits, substance abuse and therapeutic strategies Informed Consent: understands Reason for continued inpatient stay Substantial Risk for: med/psych decompensation Time Spent With Patient Time: Total time managing care of this patient today _20___ minutes.
[2024-01-23] MEDS: Ibuprofen 600 MG TABLET PO (09:15)
--- NOTE | 2024-01-23 10:29 | HO.ADDICTCON ---
History of Present Illness Date of Service: 01/23/24 Chief Complaint: crisis Reason for Consult: OUD-methadone start Sources of Information: patient interviewed and chart reviewed HPI Narrative: Patient is a 33 year old male admitted to the unit with depression. While in the ED patient was noted to be experiencing acute and severe opioid withdrawal sx--he was inititally reluctant to any medicaitons to address withdrawal, however eventually accepted methadone dose and sx resolved. On day one he received 40mg and day 2 30mg due to request to taper off of methadone and discharge with no MOUD. Patient seen today, day 3 with Recovery Support RN on unit. He is awake, alert, pleasant and engaged in interview He reports feeling great, normal . Denies any withdrawal sx Reports sleep was not an issue Denies waking up with withdrawal sx This morning he received 30mg methadone Reviewed substance use history with patient 2020 prescribed oxycodone following a surgery he continued to buy them after rx was d/c overtime increased used and transitioned from oral to IN use reports buying people's prescriptions confident that he has never used a pressed pill UDS +oxycodone and cocaine Denies every using heroin Denies history of overdose Denies any history of treatment Discussed goals and plan following discharge with regards to opioid use He shared reluctance to continue taking something every day and feeling like he needed to Discussed how medication can increase his goals of abstinence over time, while he works to develop coping strategies Provided education on how MOUD works and reassurance that he can work with his outpatient team to develop plan to taper when he is ready Past Psychiatric History: Unknown Review of Systems Constitutional: Reports as per HPI and Reports no additional constitutional complaints Diagnostics Vital Signs (24Hr): Vital Signs - 24 hr 01/22/24 17:25 01/22/24 20:00 01/23/24 08:00 Temperature 97.0 F 97.7 F 98.4 F Pulse Rate 68 73 61 Respiratory Rate 18 16 16 Blood Pressure 124/75 122/83 116/65 Pulse Oximetry 99 96 100 Oxygen Delivery Method Room Air Room Air Room Air BMI result Body Mass Index 23.7 Labs 01/20/24 06:19 01/22/24 08:03 Labs: Laboratory Results - last 48 hr 01/22/24 08:03 Sodium 140 Potassium 3.8 Chloride 105 Carbon Dioxide 27 Anion Gap 12 BUN 16 Creatinine 0.88 Estim Creat Clear Calc 124.4 Estimated GFR > 60 Fasting Glucose 98 Calcium 9.9 Total Bilirubin 0.5 AST 22 ALT 18 Alkaline Phosphatase 61 Total Protein 7.9 Albumin 4.3 Triglycerides 70 Cholesterol 128 LDL Cholesterol, Calc 75 HDL Cholesterol 39 L Mental Status Exam Mental Status Exam Patient Appearance: Well Grooomed and Appropriate Level of Consciousness: Awake, Appropriate and Alert Patient Behavior: Talkative Mood Description: Calm Affect Description: Calm Ability to Follow Directions: Excellent Speech Pattern: Clear Medications Medications Current Medications Acetaminophen (Acetaminophen 325 Mg Tablet) 650 mg PO Q6H PRN PRN Reason: Headache/Pain Mild Scale (1-3) Last Admin: 01/22/24 08:20 Dose: 650 mg Al Hydroxide/Mg Hydroxide (Magnesium Hydrox/Alum Hydrox 30 Ml Oral.Susp) 30 ml PO Q6H PRN PRN Reason: Heartburn/Nausea Fluoxetine HCl (Fluoxetine Hcl 20 Mg Capsule) 20 mg PO DAILY [facility] Last Admin: 01/23/24 08:24 Dose: 20 mg Hydroxyzine HCl (Hydroxyzine Hcl 25 Mg Tablet) 25 mg PO Q6H PRN PRN Reason: Anxiety Last Admin: 01/22/24 17:29 Dose: 25 mg Ibuprofen (Ibuprofen 600 Mg Tablet) 600 mg PO Q6H PRN PRN Reason: Pain, Moderate(Pain Scale 4-6) Last Admin: 01/23/24 09:15 Dose: 600 mg Magnesium Hydroxide (Milk Of Magnesia 30 Ml Oral.Susp) 30 ml PO DAILY PRN PRN Reason: Constipation Melatonin (Melatonin 3 Mg Tablet) 6 mg PO BEDTIME [facility] Last Admin: 01/22/24 22:19 Dose: 6 mg Methadone HCl (Methadone Hcl 20 Mg/2 Ml Oral.Conc) 30 mg PO DAILY@0800 [facility] Last Admin: 01/23/24 08:06 Dose: 30 mg Nicotine (Nicotine 21 Mg Patch.Td24) 21 mg TRANSDERMA DAILY [facility] Last Admin: 01/23/24 08:25 Dose: Not Given Nicotine Polacrilex (Nicotine Polacrilex 2 Mg Gum) 4 mg BUCCAL Q2H PRN PRN Reason: Nicotine Cravings Ondansetron HCl (Ondansetron Odt 8 Mg Tab.Rapdis) 8 mg TRANSLINGU Q8H PRN PRN Reason: Nausea and Vomiting Last Admin: 01/21/24 21:07 Dose: 8 mg Trazodone HCl (Trazodone Hcl 50 Mg Tablet) 50 mg PO BEDTIME MRX1 PRN PRN Reason: Insomnia Allergies Allergies Allergy/AdvReac Type Severity Reaction Status Date / Time tizanidine Allergy Unknown hives Verified 01/20/24 05:46 Assessment & Plan Assessment & Plan (1) Opioid use disorder: Status: Acute Code(s): F11.90 - Opioid use, unspecified, uncomplicated Assessment and Plan: continue methadone 30mg daily needs to be connected to OTP in the community --aware of both OTPs in [facility] RN to check in tomorrow and provide overdose prevention education Total time managing care of this patient today __45__ minutes. PMFSH Past Medical History Medical History Onychomycosis Family History Family History Mother Cancer Father No problems noted. Brother No problems noted. Sister No problems noted. Maternal Grandmother Leukemia Surgical History Surgical History History of hand surgery H/O hernia repair Hx of appendectomy H/O lumbar discectomy Social History Social History Household Members: Spouse and Children Housing: House Do you presently have visiting nurse or other home services: No Alcohol intake: current Patient Tobacco Use Status: Current everyday Tobacco user Tobacco use type: Cigarette Cigarettes Per Day: 10 Smoked in Last 30 Days: Yes e-Cigarette/Vaping Use: Never Used Patient Interested in Nicotine Replacement: Yes Patient Given Instructions on How to Stop Smoking: Yes Date Education Initiated: 01/21/24 Second Hand Smoke Exposure: No Use of substances other than those prescribed or required for medical reasons: Yes Substance Use Type: Crack/Cocaine, Marijuana and Opiates Substance Use Frequency: Daily Last Used Substance: Just Prior to Admission Currently Displaying Signs/Symptoms of Drug Intoxication Withdrawal: No Any prior treatment program specific to substance use: No Have you been hit, kicked, punched, or otherwise hurt by someone within the past year? If so, by whom?: No Do you feel safe in your current relationship?: No Is there a partner from a previous relationship who is making you feel unsafe now?: No Are you made to feel afraid or neglected: No Advance Directives: No Advance Directives Information Provided: Yes Do you have thoughts of harming others: None Do you have a plan to hurt others: No Plan Recently lost weight without trying: Yes How much weight loss: Unsure Eating poorly because of decreased appetite: Yes Nutrition screen score: 5 Nutrition Risks: No Nutritional Risk Poor oral hygiene: No service: No Current occupational status: employed 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
[2024-01-23 20:20] VITALS: BP 144/83; PULSE 63; RESP 16; TEMP 36.6; O2SAT 99
[2024-01-23] MEDS: Melatonin 3 MG TABLET 6 MG PO (22:55)
[2024-01-24 08:00] VITALS: BP 125/76; PULSE 63; RESP 14; TEMP 37.1; O2SAT 100
[2024-01-24] MEDS: methADONE HCl 20 MG/2 ML ORAL.CONC 30 MG PO (08:11)
[2024-01-24] MEDS: FLUoxetine HCl 20 MG CAPSULE PO (08:31)
[2024-01-24 10:56] LABS: HBS Num1 > 1000.00 mIU/mL (0-7.99); HBc Num1 0.09 S/CO (0.00-0.79); HBsAGNum1 0.41 S/CO (0.00-0.99); HIV AB/AG Nonreactive (Nonreactive); HIV Num 1 0.05 S/CO (0.00-0.99); Hepatitis A Antibody IgM 0.29 Index (0-0.79); Hepatitis B Core Antibody Nonreactive (Nonreactive); Hepatitis B Surface Antigen Negative (Negative); ~HepC Num1 0.07 S/CO (0.00-0.79); ~Hepatitis A Antibody IgM Nonreactive (Nonreactive); ~Hepatitis B Surface Antibody REACTIVE (Nonreactive); ~Hepatitis C Antibody Nonreactive (Nonreactive)
[2024-01-24] MEDS: Ondansetron ODT 8 MG TAB.RAPDIS TRANSLINGU (13:24)
--- NOTE | 2024-01-24 15:43 | HO.PSYCHPN ---
Subjective Subjective Date of Service: 01/24/24 Reason For Visit: crisis Interim History: animated, cooperative. c/o nausea, agreeable to have zofran SL. discussion held re methadone versus suboxone, pt indicates he would like to be on the monthly suboxone injection. discharging saturday. per staff, +meds. +grps. chatty. visited. slept 7 hours. D/C saturday. Mental Status Exam Mental Status Exam Narrative: Pt is alert and oriented; behavior is cooperative, animated, pleasant; dressed in casual attire; mood is described as good ; eye contact appropriate; Speech is normal rate, volume and not pressured; thought process is organized and goal directed; Thought content is on tx; otherwise pertinent to relevant topics and without any delusional content, paranoid ideations or grandiosity; no SI/HI/VH/AH expressed. Diagnostics Vital Signs (24Hr): Vital Signs - 24 hr 01/23/24 20:20 01/24/24 08:00 Temperature 97.9 F 98.7 F Pulse Rate 63 63 Respiratory Rate 16 14 Blood Pressure 144/83 H 125/76 Pulse Oximetry 99 100 Oxygen Delivery Method Room Air Room Air BMI result Body Mass Index 24.2 Labs 01/20/24 06:19 01/22/24 08:03 Labs: Laboratory Results - last 48 hr 01/24/24 08:29 Hold Purple Top SEE NOTE Hepatitis A IgM Ab Nonreactive Hep Bs Antigen Negative Hep Bs Antibody REACTIVE Hep B Core Total Ab Nonreactive Hepatitis C Ab (EIA) Nonreactive HIV 1&2 Ab/P24 Ag 4thGn Nonreactive Medications Medications Current Medications Acetaminophen (Acetaminophen 325 Mg Tablet) 650 mg PO Q6H PRN PRN Reason: Headache/Pain Mild Scale (1-3) Last Admin: 01/22/24 08:20 Dose: 650 mg Al Hydroxide/Mg Hydroxide (Magnesium Hydrox/Alum Hydrox 30 Ml Oral.Susp) 30 ml PO Q6H PRN PRN Reason: Heartburn/Nausea Fluoxetine HCl (Fluoxetine Hcl 20 Mg Capsule) 20 mg PO DAILY [facility] Last Admin: 01/24/24 08:31 Dose: 20 mg Hydroxyzine HCl (Hydroxyzine Hcl 25 Mg Tablet) 25 mg PO Q6H PRN PRN Reason: Anxiety Last Admin: 01/22/24 17:29 Dose: 25 mg Ibuprofen (Ibuprofen 600 Mg Tablet) 600 mg PO Q6H PRN PRN Reason: Pain, Moderate(Pain Scale 4-6) Last Admin: 01/23/24 09:15 Dose: 600 mg Magnesium Hydroxide (Milk Of Magnesia 30 Ml Oral.Susp) 30 ml PO DAILY PRN PRN Reason: Constipation Melatonin (Melatonin 3 Mg Tablet) 6 mg PO BEDTIME [facility] Last Admin: 01/23/24 22:55 Dose: 6 mg Methadone HCl (Methadone Hcl 20 Mg/2 Ml Oral.Conc) 30 mg PO DAILY@0800 [facility] Last Admin: 01/24/24 08:11 Dose: 30 mg Nicotine (Nicotine 21 Mg Patch.Td24) 21 mg TRANSDERMA DAILY [facility] Last Admin: 01/24/24 08:32 Dose: Not Given Nicotine Polacrilex (Nicotine Polacrilex 2 Mg Gum) 4 mg BUCCAL Q2H PRN PRN Reason: Nicotine Cravings Ondansetron HCl (Ondansetron Odt 8 Mg Tab.Rapdis) 8 mg TRANSLINGU Q8H PRN PRN Reason: Nausea and Vomiting Last Admin: 01/24/24 13:24 Dose: 8 mg Trazodone HCl (Trazodone Hcl 50 Mg Tablet) 50 mg PO BEDTIME MRX1 PRN PRN Reason: Insomnia Allergies Allergies Allergy/AdvReac Type Severity Reaction Status Date / Time tizanidine Allergy Unknown hives Verified 01/20/24 05:46 Assessment & Plan Assessment & Plan (1) Opioid use disorder: Status: Acute Code(s): F11.90 - Opioid use, unspecified, uncomplicated Assessment and Plan: continue methadone 30mg daily needs to be connected to OTP in the community --aware of both OTPs in [facility] RN to check in tomorrow and provide overdose prevention education (2) PTSD (post-traumatic stress disorder): Status: Acute Code(s): F43.10 - Post-traumatic stress disorder, unspecified (3) Depressive disorder: Status: Acute Code(s): F32.A - Depression, unspecified Plan Patient is a 33-year-old male who self presented to [facility] ER with suicidal ideation [place] secondary to increased depression. Plan: CV 15 minute safety checks Addiction medicine consult Obtain collateral Discussed possible need for medications Referral to outpatient psychiatric providers Encourage groups Discharge planning 01/21: Active on unit. Social with peers. Tearful during 1:1. Patient reports feeling depressed and has been using Percocets, cocaine and marijuana to self medicate. Patient reports he has been using for the past 5 years. Denies hx of inpatient psychiatric admissions or detox. Denies history of outpatient psychiatric providers however, states he would like referrals to a therapist and prescriber. Patient stated, I think it was the side effects from the combination of alcohol and opiates. I just felt like I was going to hurt myself so I came to the hospital. I got 3 kids I have to take care of. I want to get my head straight. I'm just happy to talk to somebody . Patient reports he has been working 2 jobs to try to support his family. Patient stated, I don't want to do drugs anymore. I want to be there for my kids. I will do whatever I have to do to feel better.I'm open to any kind of treatment that can help . Pt denies SI/HI/VH/AH. Discussed risks/benefits of SSRI's; pt agreed to trial. Start: Prozac 20mg PO daily 01/22: Patient reports feeling better today; pt stated, I'm getting clean for me. I know I need to get clean for my family. I know I'm capable of doing alot of positive things . Pt reports he plans on following up with outpatient methadone and slowly tapering off. denies SI/HI/VH/AH. denies side effects from Prozac. Continue current tx plan. 01/23: devynfran for nausea. asking for sublocade. plan clarified with radha zuluaga - pt to remain on methadone 30 mg daily and F/U with methadone clinic outside hospital, get referred from methadone clinic later for sublocade. continue current mgmt. discharge saturday. Reason for continued inpatient stay Substantial Risk for: inability to function and rapid decompensation Time Spent With Patient Time: Total time managing care of this patient today __35__ minutes.
--- NOTE | 2024-01-24 16:09 | MHC.RECOVRN ---
Met with pt to check in and discuss overdose risk after [place] [facility]. Pt reports he has been in bed all day due to the methadone making him feel high. Pt acknowledges he has not felt that way in previous days. Educated pt on risk of overdose and overdose prevention after a period of time in recovery, pt verbalizes understanding. Denies questions or concerns for t/w. Discussed with Micaela Gee APRN.
[2024-01-24 19:45] VITALS: BP 124/75; PULSE 67; RESP 16; TEMP 36.6; O2SAT 99
[2024-01-24] MEDS: Melatonin 3 MG TABLET 6 MG PO (21:16)
[2024-01-25 07:28] VITALS: BP 126/82; PULSE 64; RESP 16; TEMP 36.4; O2SAT 100
[2024-01-25] MEDS: methADONE HCl 20 MG/2 ML ORAL.CONC 30 MG PO (08:12)
[2024-01-25] MEDS: FLUoxetine HCl 20 MG CAPSULE PO (08:42)
[2024-01-25] MEDS: Ondansetron ODT 8 MG TAB.RAPDIS TRANSLINGU ×2 (12:32→20:55)
[2024-01-25] MEDS: Acetaminophen 325 MG TABLET 650 MG PO (16:27)
--- NOTE | 2024-01-25 20:00 | HO.PSYCHPN ---
Subjective Subjective Date of Service: 01/25/24 Reason For Visit: crisis Interim History: dynamic, expressive, dramatic. doesn't want to be on methadone, asking to taper. agreeable to decrease to 10 daily for the next 3 days and then DC. planning to DC on saturday. will have SA counselor, will ask for their help PRN re meds after he leaves. per staff, no dep/anx. no groups. minimal social contact. angry re methadone. slept about 8 hours. Mental Status Exam Mental Status Exam Narrative: Pt is alert and oriented; behavior is cooperative, animated, pleasant; dressed in casual attire; mood is described as good ; eye contact appropriate; Speech is normal rate, volume and not pressured; thought process is organized and goal directed; Thought content is on tx; otherwise pertinent to relevant topics and without any delusional content, paranoid ideations or grandiosity; no SI/HI/VH/AH expressed. Diagnostics Vital Signs (24Hr): Vital Signs - 24 hr 01/25/24 07:28 Temperature 97.6 F Pulse Rate 64 Respiratory Rate 16 Blood Pressure 126/82 Pulse Oximetry 100 Oxygen Delivery Method Room Air BMI result Body Mass Index 24.2 Labs 01/20/24 06:19 01/22/24 08:03 Labs: Laboratory Results - last 48 hr 01/24/24 08:29 Hold Purple Top SEE NOTE Hepatitis A IgM Ab Nonreactive Hep Bs Antigen Negative Hep Bs Antibody REACTIVE Hep B Core Total Ab Nonreactive Hepatitis C Ab (EIA) Nonreactive HIV 1&2 Ab/P24 Ag 4thGn Nonreactive Medications Medications Current Medications Acetaminophen (Acetaminophen 325 Mg Tablet) 650 mg PO Q6H PRN PRN Reason: Headache/Pain Mild Scale (1-3) Last Admin: 01/25/24 16:27 Dose: 650 mg Al Hydroxide/Mg Hydroxide (Magnesium Hydrox/Alum Hydrox 30 Ml Oral.Susp) 30 ml PO Q6H PRN PRN Reason: Heartburn/Nausea Fluoxetine HCl (Fluoxetine Hcl 20 Mg Capsule) 20 mg PO DAILY [facility]A Last Admin: 01/25/24 08:42 Dose: 20 mg Hydroxyzine HCl (Hydroxyzine Hcl 25 Mg Tablet) 25 mg PO Q6H PRN PRN Reason: Anxiety Last Admin: 01/22/24 17:29 Dose: 25 mg Ibuprofen (Ibuprofen 600 Mg Tablet) 600 mg PO Q6H PRN PRN Reason: Pain, Moderate(Pain Scale 4-6) Last Admin: 01/23/24 09:15 Dose: 600 mg Magnesium Hydroxide (Milk Of Magnesia 30 Ml Oral.Susp) 30 ml PO DAILY PRN PRN Reason: Constipation Melatonin (Melatonin 3 Mg Tablet) 6 mg PO BEDTIME [facility] Last Admin: 01/24/24 21:16 Dose: 6 mg Methadone HCl (Methadone Hcl 20 Mg/2 Ml Oral.Conc) 10 mg PO DAILY@0800 [facility] Nicotine (Nicotine 21 Mg Patch.Td24) 21 mg TRANSDERMA DAILY [facility] Last Admin: 01/25/24 08:42 Dose: Not Given Nicotine Polacrilex (Nicotine Polacrilex 2 Mg Gum) 4 mg BUCCAL Q2H PRN PRN Reason: Nicotine Cravings Ondansetron HCl (Ondansetron Odt 8 Mg Tab.Rapdis) 8 mg TRANSLINGU Q8H PRN PRN Reason: Nausea and Vomiting Last Admin: 01/25/24 12:32 Dose: 8 mg Trazodone HCl (Trazodone Hcl 50 Mg Tablet) 50 mg PO BEDTIME MRX1 PRN PRN Reason: Insomnia Allergies Allergies Allergy/AdvReac Type Severity Reaction Status Date / Time tizanidine Allergy Unknown hives Verified 01/20/24 05:46 Assessment & Plan Assessment & Plan (1) Opioid use disorder: Status: Acute Code(s): F11.90 - Opioid use, unspecified, uncomplicated (2) PTSD (post-traumatic stress disorder): Status: Acute Code(s): F43.10 - Post-traumatic stress disorder, unspecified (3) Depressive disorder: Status: Acute Code(s): F32.A - Depression, unspecified Plan Patient is a 33-year-old male who self presented to [facility] [place] [facility] with suicidal ideation [place] secondary to increased depression. Plan: CV 15 minute safety checks Addiction medicine consult Obtain collateral Discussed possible need for medications Referral to outpatient psychiatric providers Encourage groups Discharge planning 01/21: Active on unit. Social with peers. Tearful during 1:1. Patient reports feeling depressed and has been using Percocets, cocaine and marijuana to self medicate. Patient reports he has been using for the past 5 years. Denies hx of inpatient psychiatric admissions or detox. Denies history of outpatient psychiatric providers however, states he would like referrals to a therapist and prescriber. Patient stated, I think it was the side effects from the combination of alcohol and opiates. I just felt like I was going to hurt myself so I came to the hospital. I got 3 kids I have to take care of. I want to get my head straight. I'm just happy to talk to somebody . Patient reports he has been working 2 jobs to try to support his family. Patient stated, I don't want to do drugs anymore. I want to be there for my kids. I will do whatever I have to do to feel better.I'm open to any kind of treatment that can help . Pt denies SI/HI/VH/AH. Discussed risks/benefits of SSRI's; pt agreed to trial. Start: Prozac 20mg PO daily 01/22: Patient reports feeling better today; pt stated, I'm getting clean for me. I know I need to get clean for my family. I know I'm capable of doing alot of positive things . Pt reports he plans on following up with outpatient methadone and slowly tapering off. denies SI/HI/VH/AH. denies side effects from Prozac. Continue current tx plan. 01/23: zofran for nausea. asking for sublocade. plan clarified with radha zuluaga - pt to remain on methadone 30 mg daily and F/U with methadone clinic outside hospital, get referred from methadone clinic later for sublocade. continue current mgmt. discharge saturday. 01/24: pt asking to taper methadone, does not want maintenance. agreeable to decrease methadone to 10 daily for the next several days, then DC. will F/U after D/C with addictions counselor. Reason for continued inpatient stay Substantial Risk for: rapid decompensation Time Spent With Patient Time: Total time managing care of this patient today ____ minutes.
[2024-01-25 20:05] VITALS: BP 117/73; PULSE 65; RESP 16; TEMP 36.4; O2SAT 99
[2024-01-25] MEDS: Melatonin 3 MG TABLET 6 MG PO (20:55)
[2024-01-25 21:43] LABS: COVID-19 Test Negative (Negative); IDNOW Serial# 08D9AD1C
[2024-01-26 07:35] VITALS: BP 152/81; PULSE 65; RESP 16; TEMP 36.4; O2SAT 99
[2024-01-26] MEDS: methADONE HCl 20 MG/2 ML ORAL.CONC 10 MG PO (08:28)
[2024-01-26] MEDS: FLUoxetine HCl 20 MG CAPSULE PO (08:28)
[2024-01-26] MEDS: Magnesium Hydrox/Alum Hydrox 30 ML ORAL.SUSP PO (08:31)
--- NOTE | 2024-01-26 17:43 | HO.PSYCHPN ---
Subjective Subjective Date of Service: 01/26/24 Reason For Visit: crisis Interim History: no nausea today. feels quite well after 10 mg methadone. no issues. planning to DC . per staff, no dep/anx. taking meds. zofran helpful. COVID NEG. Mental Status Exam Mental Status Exam Narrative: Pt is alert and oriented; behavior is cooperative, animated, pleasant; dressed in casual attire; mood is described as good ; eye contact appropriate; Speech is normal rate, volume and not pressured; thought process is organized and goal directed; Thought content is on tx; otherwise pertinent to relevant topics and without any delusional content, paranoid ideations or grandiosity; no SI/HI/VH/AH expressed. Diagnostics Vital Signs (24Hr): Vital Signs - 24 hr 01/25/24 20:05 01/26/24 07:35 Temperature 97.6 F 97.6 F Pulse Rate 65 65 Respiratory Rate 16 16 Blood Pressure 117/73 152/81 H Pulse Oximetry 99 99 Oxygen Delivery Method Room Air Room Air BMI result Body Mass Index 24.2 Labs 01/20/24 06:19 01/22/24 08:03 Labs: Laboratory Results - last 48 hr 01/25/24 20:23 COVID-19 ([facility]) Negative COVID-19 Clin Com See Note Medications Medications Current Medications Acetaminophen (Acetaminophen 325 Mg Tablet) 650 mg PO Q6H PRN PRN Reason: Headache/Pain Mild Scale (1-3) Last Admin: 01/25/24 16:27 Dose: 650 mg Al Hydroxide/Mg Hydroxide (Magnesium Hydrox/Alum Hydrox 30 Ml Oral.Susp) 30 ml PO Q6H PRN PRN Reason: Heartburn/Nausea Last Admin: 01/26/24 08:31 Dose: 30 ml Fluoxetine HCl (Fluoxetine Hcl 20 Mg Capsule) 20 mg PO DAILY [facility]A Last Admin: 01/26/24 08:28 Dose: 20 mg Hydroxyzine HCl (Hydroxyzine Hcl 25 Mg Tablet) 25 mg PO Q6H PRN PRN Reason: Anxiety Last Admin: 01/22/24 17:29 Dose: 25 mg Ibuprofen (Ibuprofen 600 Mg Tablet) 600 mg PO Q6H PRN PRN Reason: Pain, Moderate(Pain Scale 4-6) Last Admin: 01/23/24 09:15 Dose: 600 mg Magnesium Hydroxide (Milk Of Magnesia 30 Ml Oral.Susp) 30 ml PO DAILY PRN PRN Reason: Constipation Melatonin (Melatonin 3 Mg Tablet) 6 mg PO BEDTIME [facility] Last Admin: 01/25/24 20:55 Dose: 6 mg Methadone HCl (Methadone Hcl 20 Mg/2 Ml Oral.Conc) 10 mg PO DAILY@0800 [facility] Last Admin: 01/26/24 08:28 Dose: 10 mg Nicotine (Nicotine 21 Mg Patch.Td24) 21 mg TRANSDERMA DAILY [facility] Last Admin: 01/26/24 09:08 Dose: Not Given Nicotine Polacrilex (Nicotine Polacrilex 2 Mg Gum) 4 mg BUCCAL Q2H PRN PRN Reason: Nicotine Cravings Ondansetron HCl (Ondansetron Odt 8 Mg Tab.Rapdis) 8 mg TRANSLINGU Q8H PRN PRN Reason: Nausea and Vomiting Last Admin: 01/25/24 12:32 Dose: 8 mg Trazodone HCl (Trazodone Hcl 50 Mg Tablet) 50 mg PO BEDTIME MRX1 PRN PRN Reason: Insomnia Allergies Allergies Allergy/AdvReac Type Severity Reaction Status Date / Time tizanidine Allergy Unknown hives Verified 01/20/24 05:46 Assessment & Plan Assessment & Plan (1) Opioid use disorder: Status: Acute Code(s): F11.90 - Opioid use, unspecified, uncomplicated (2) PTSD (post-traumatic stress disorder): Status: Acute Code(s): F43.10 - Post-traumatic stress disorder, unspecified (3) Depressive disorder: Status: Acute Code(s): F32.A - Depression, unspecified Plan Patient is a 33-year-old male who self presented to [facility] [facility] with suicidal ideation [place] secondary to increased depression. Plan: CV 15 minute safety checks Addiction medicine consult Obtain collateral Discussed possible need for medications Referral to outpatient psychiatric providers Encourage groups Discharge planning 01/21: Active on unit. Social with peers. Tearful during 1:1. Patient reports feeling depressed and has been using Percocets, cocaine and marijuana to self medicate. Patient reports he has been using for the past 5 years. Denies hx of inpatient psychiatric admissions or detox. Denies history of outpatient psychiatric providers however, states he would like referrals to a therapist and prescriber. Patient stated, I think it was the side effects from the combination of alcohol and opiates. I just felt like I was going to hurt myself so I came to the hospital. I got 3 kids I have to take care of. I want to get my head straight. I'm just happy to talk to somebody . Patient reports he has been working 2 jobs to try to support his family. Patient stated, I don't want to do drugs anymore. I want to be there for my kids. I will do whatever I have to do to feel better.I'm open to any kind of treatment that can help . Pt denies SI/HI/VH/AH. Discussed risks/benefits of SSRI's; pt agreed to trial. Start: Prozac 20mg PO daily 01/22: Patient reports feeling better today; pt stated, I'm getting clean for me. I know I need to get clean for my family. I know I'm capable of doing alot of positive things . Pt reports he plans on following up with outpatient methadone and slowly tapering off. denies SI/HI/VH/AH. denies side effects from Prozac. Continue current tx plan. 01/23: zofran for nausea. asking for sublocade. plan clarified with radha zuluaga - pt to remain on methadone 30 mg daily and F/U with methadone clinic outside hospital, get referred from methadone clinic later for sublocade. continue current mgmt. discharge saturday. 01/24: pt asking to taper methadone, does not want maintenance. agreeable to decrease methadone to 10 daily for the next several days, then DC. will F/U after D/C with addictions counselor. 01/25: feeling well after methadone 10 mg today. denies withdrawal Sx. COVID NEG. no nausea today. continue current mgmt. Reason for continued inpatient stay Substantial Risk for: rapid decompensation Time Spent With Patient Time: Total time managing care of this patient today ____ minutes.
[2024-01-26 20:00] VITALS: BP 128/80; PULSE 72; RESP 16; TEMP 36.9; O2SAT 96
[2024-01-26] MEDS: Melatonin 3 MG TABLET 6 MG PO (22:01)
[2024-01-26] MEDS: hydrOXYzine HCL 25 MG TABLET PO (22:01)
[2024-01-27 07:47] VITALS: BP 114/73; PULSE 60; RESP 18; TEMP 36.8; O2SAT 98
[2024-01-27] MEDS: FLUoxetine HCl 20 MG CAPSULE PO (08:26)
[2024-01-27] MEDS: methADONE HCl 20 MG/2 ML ORAL.CONC 10 MG PO (08:26)
--- NOTE | 2024-01-27 19:15 | HO.PSYCHPN ---
Subjective Subjective Date of Service: 01/27/24 Reason For Visit: crisis Interim History: pleasant, cooperative. no safety issues, meds reviewed, reconciled, prescribed. per staff, slept 7 hours. very energetic today. sweating on eves, acknowledged a little bit of withdrawal. Mental Status Exam Mental Status Exam Narrative: Pt is alert and oriented; behavior is cooperative, animated, pleasant; dressed in casual attire; mood is described as good. a little bit anxious ; eye contact appropriate; Speech is normal rate, volume and not pressured; thought process is organized and goal directed; Thought content is on tx; otherwise pertinent to relevant topics and without any delusional content, paranoid ideations or grandiosity; no SI/HI/VH/AH. Diagnostics Vital Signs (24Hr): Vital Signs - 24 hr 01/26/24 20:00 01/27/24 07:47 Temperature 98.5 F 98.2 F Pulse Rate 72 60 Respiratory Rate 16 18 Blood Pressure 128/80 114/73 Pulse Oximetry 96 98 Oxygen Delivery Method Room Air Room Air BMI result Body Mass Index 24.2 Labs 01/20/24 06:19 01/22/24 08:03 Labs: Laboratory Results - last 48 hr 01/25/24 20:23 COVID-19 ([facility]) Negative COVID-19 Clin Com See Note Medications Medications Current Medications Acetaminophen (Acetaminophen 325 Mg Tablet) 650 mg PO Q6H PRN PRN Reason: Headache/Pain Mild Scale (1-3) Last Admin: 01/25/24 16:27 Dose: 650 mg Al Hydroxide/Mg Hydroxide (Magnesium Hydrox/Alum Hydrox 30 Ml Oral.Susp) 30 ml PO Q6H PRN PRN Reason: Heartburn/Nausea Last Admin: 01/26/24 08:31 Dose: 30 ml Fluoxetine HCl (Fluoxetine Hcl 20 Mg Capsule) 20 mg PO DAILY [facility] Last Admin: 01/27/24 08:26 Dose: 20 mg Hydroxyzine HCl (Hydroxyzine Hcl 25 Mg Tablet) 25 mg PO Q6H PRN PRN Reason: Anxiety Last Admin: 01/26/24 22:01 Dose: 25 mg Ibuprofen (Ibuprofen 600 Mg Tablet) 600 mg PO Q6H PRN PRN Reason: Pain, Moderate(Pain Scale 4-6) Last Admin: 01/23/24 09:15 Dose: 600 mg Magnesium Hydroxide (Milk Of Magnesia 30 Ml Oral.Susp) 30 ml PO DAILY PRN PRN Reason: Constipation Melatonin (Melatonin 3 Mg Tablet) 6 mg PO BEDTIME [facility] Last Admin: 01/26/24 22:01 Dose: 6 mg Methadone HCl (Methadone Hcl 20 Mg/2 Ml Oral.Conc) 10 mg PO DAILY@0800 [facility] Last Admin: 01/27/24 08:26 Dose: 10 mg Nicotine (Nicotine 21 Mg Patch.Td24) 21 mg TRANSDERMA DAILY [facility] Last Admin: 01/27/24 08:27 Dose: Not Given Nicotine Polacrilex (Nicotine Polacrilex 2 Mg Gum) 4 mg BUCCAL Q2H PRN PRN Reason: Nicotine Cravings Ondansetron HCl (Ondansetron Odt 8 Mg Tab.Rapdis) 8 mg TRANSLINGU Q8H PRN PRN Reason: Nausea and Vomiting Last Admin: 01/25/24 12:32 Dose: 8 mg Trazodone HCl (Trazodone Hcl 50 Mg Tablet) 50 mg PO BEDTIME MRX1 PRN PRN Reason: Insomnia Allergies Allergies Allergy/AdvReac Type Severity Reaction Status Date / Time tizanidine Allergy Unknown hives Verified 01/20/24 05:46 Assessment & Plan Assessment & Plan (1) Opioid use disorder: Status: Acute Code(s): F11.90 - Opioid use, unspecified, uncomplicated (2) PTSD (post-traumatic stress disorder): Status: Acute Code(s): F43.10 - Post-traumatic stress disorder, unspecified (3) Depressive disorder: Status: Acute Code(s): F32.A - Depression, unspecified Plan Patient is a 33-year-old male who self presented to [facility] [place] [facility] with suicidal ideation [place] secondary to increased depression. Plan: CV 15 minute safety checks Addiction medicine consult Obtain collateral Discussed possible need for medications Referral to outpatient psychiatric providers Encourage groups Discharge planning 01/21: Active on unit. Social with peers. Tearful during 1:1. Patient reports feeling depressed and has been using Percocets, cocaine and marijuana to self medicate. Patient reports he has been using for the past 5 years. Denies hx of inpatient psychiatric admissions or detox. Denies history of outpatient psychiatric providers however, states he would like referrals to a therapist and prescriber. Patient stated, I think it was the side effects from the combination of alcohol and opiates. I just felt like I was going to hurt myself so I came to the hospital. I got 3 kids I have to take care of. I want to get my head straight. I'm just happy to talk to somebody . Patient reports he has been working 2 jobs to try to support his family. Patient stated, I don't want to do drugs anymore. I want to be there for my kids. I will do whatever I have to do to feel better.I'm open to any kind of treatment that can help . Pt denies SI/HI/VH/AH. Discussed risks/benefits of SSRI's; pt agreed to trial. Start: Prozac 20mg PO daily 01/22: Patient reports feeling better today; pt stated, I'm getting clean for me. I know I need to get clean for my family. I know I'm capable of doing alot of positive things . Pt reports he plans on following up with outpatient methadone and slowly tapering off. denies SI/HI/VH/AH. denies side effects from Prozac. Continue current tx plan. 01/23: zofran for nausea. asking for sublocade. plan clarified with radha zuluaga - pt to remain on methadone 30 mg daily and F/U with methadone clinic outside hospital, get referred from methadone clinic later for sublocade. continue current mgmt. discharge saturday. 01/24: pt asking to taper methadone, does not want maintenance. agreeable to decrease methadone to 10 daily for the next several days, then DC. will F/U after D/C with addictions counselor. 01/25: feeling well after methadone 10 mg today. denies withdrawal Sx. COVID NEG. no nausea today. continue current mgmt. 01/26: minor withdrawal Sx last night. pt still wants to take methadone 10 tomorrow and then discharge. no n/v. meds reviewed, reconciled, prescribed. discharge tomorrow morning at 0900. [address]care in [address]. Reason for continued inpatient stay Substantial Risk for: stable for discharge Time Spent With Patient Time: Total time managing care of this patient today ____ minutes.
[2024-01-27 20:00] VITALS: BP 129/78; PULSE 79; RESP 14; TEMP 36.9; O2SAT 99
[2024-01-27] MEDS: hydrOXYzine HCL 25 MG TABLET PO (21:41)
[2024-01-27] MEDS: Melatonin 3 MG TABLET 6 MG PO (21:41)
[2024-01-28 07:45] VITALS: BP 132/84; PULSE 70; RESP 18; TEMP 36.4; O2SAT 100
[2024-01-28] MEDS: methADONE HCl 20 MG/2 ML ORAL.CONC 10 MG PO (08:00)
[2024-01-28] MEDS: FLUoxetine HCl 20 MG CAPSULE PO (08:12)
[2024-01-28] MEDS: hydrOXYzine HCL 25 MG TABLET PO (08:14)
--- NOTE | 2024-01-28 09:33 | P.DS_ITS ---
DS: Providers Provider Date of Service: 01/28/24 Date of admission: 01/21/24 11:08 Date of discharge: 01/28/24 Primary care physician: Holly Hatch MD Admitting clinician: Irish Fish Attending physician on admission: Leobardo Parks Attending physician on discharge: Leobardo Parks Discharging clinician: Irish Fish DS: Diagnosis Discharge Diagnosis (1) Opioid use disorder: Status: Acute (2) PTSD (post-traumatic stress disorder): Status: Acute (3) Depressive disorder: Status: Acute DS: Medications Discharge Medications Home Medications: Home Medications ?Medication ?Instructions ?Recorded ?Confirmed No Known Home Meds 08/30/22 01/20/24 Previous Rx's ?Medication ?Instructions ?Recorded fluoxetine 20 mg capsule 20 mg PO DAILY 30 days #30 caps 01/27/24 hydroxyzine HCl 25 mg tablet 25 mg PO BID PRN Anxiety 30 days 01/27/24 #60 tabs melatonin 3 mg tablet 6 mg (2 x 3 mg) PO BEDTIME 30 days 01/27/24 #60 tabs Mental Status Exam Mental Status Exam Narrative: Pt is alert and oriented; behavior is cooperative, calm; dressed in casual attire; mood is described as good ; eye contact appropriate; Speech is normal rate, volume and not pressured; thought process is organized and goal directed; Thought content is on tx; otherwise pertinent to relevant topics and without any delusional content, paranoid ideations or grandiosity; denies SI/HI/VH/AH. Data Data Completed and Pending Completed studies during hospitalization [Text1]: 01/22/24 01/24/24 01/25/24 08:03 08:29 20:23 Hold Purple Top SEE NOTE Sodium 140 Potassium 3.8 Chloride 105 Carbon Dioxide 27 Anion Gap 12 BUN 16 Creatinine 0.88 Estim Creat Clear Calc 124.4 Estimated GFR > 60 Fasting Glucose 98 Calcium 9.9 Total Bilirubin 0.5 AST 22 ALT 18 Alkaline Phosphatase 61 Total Protein 7.9 Albumin 4.3 Triglycerides 70 Cholesterol 128 LDL Cholesterol, Calc 75 HDL Cholesterol 39 L COVID-19 (ALLEN) Negative COVID-19 Clin Com See Note Hepatitis A IgM Ab Nonreactive Hep Bs Antigen Negative Hep Bs Antibody REACTIVE Hep B Core Total Ab Nonreactive Hepatitis C Ab (EIA) Nonreactive HIV 1&2 Ab/P24 Ag 4thGn Nonreactive DS: Summary Hospital Course Hospital Course: Patient is a 33-year-old male who self presented to [facility] with suicidal ideation [place] secondary to increased depression. Per crisis report, patient reports feeling depressed. He reported experiencing increased depression for several months and has been uncontrollably crying. He reports using opiates, smoking marijuana and cigarettes daily to distract himself. Patient reports that he has been using Percocets for 4 years. Patient expressed that he does not know why he feels depressed. Patient denied HI/AH/VH. He reported that his sleep and appetite are poor. Patient denied any history of mental illness. 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 Patient agreed to treatment however was too tired to complete admission assessment and asked to speak tomorrow. Patient was seen by addiction medicine. Plan: CV 15 minute safety checks Addiction medicine consult Obtain collateral Discussed possible need for medications Referral to outpatient psychiatric providers Encourage groups Discharge planning Active on unit. Social with peers. Tearful during 1:1. Patient reports feeling depressed and has been using Percocets, cocaine and marijuana to self medicate. Patient reports he has been using for the past 5 years. Denies hx of inpatient psychiatric admissions or detox. Denies history of outpatient psychiatric providers however, states he would like referrals to a therapist and prescriber. Patient stated, I think it was the side effects from the combination of alcohol and opiates. I just felt like I was going to hurt myself so I came to the hospital. I got 3 kids I have to take care of. I want to get my head straight. I'm just happy to talk to somebody . Patient reports he has been working 2 jobs to try to support his family. Patient stated, I don't want to do drugs anymore. I want to be there for my kids. I will do whatever I have to do to feel better.I'm open to any kind of treatment that can help . Pt denies SI/HI/VH/AH. Discussed risks/benefits of SSRI's; pt agreed to trial. Start: Prozac 20mg PO daily Patient reports feeling better today; pt stated, I'm getting clean for me. I know I need to get clean for my family. I know I'm capable of doing alot of positive things . Pt reports he plans on following up with outpatient methadone and slowly tapering off. denies SI/HI/VH/AH. denies side effects from Prozac. Continue current tx plan. zofran for nausea. asking for sublocade. plan clarified with radha zuluaga - pt to remain on methadone 30 mg daily and F/U with methadone clinic outside hospital, get referred from methadone clinic later for sublocade. continue current mgmt. discharge saturday. pt asking to taper methadone, does not want maintenance. agreeable to decrease methadone to 10 daily for the next several days, then DC. will F/U after D/C with addictions counselor. feeling well after methadone 10 mg today. denies withdrawal Sx. COVID NEG. no nausea today. continue current mgmt. minor withdrawal Sx last night. pt still wants to take methadone 10 tomorrow and then discharge. no n/v. meds reviewed, reconciled, prescribed. discharge tomorrow morning at 0900. aftercare in [address]. Patient reports he plans on following up with outpatient providers. denies SI/HI/VH/AH. Time spent discussing smoking cessation with patient: 3 to 10 minutes Status at Discharge Cognitive/behavioral status at discharge: Patient has insight and demonstrates good judgment in terms of wanting to pursue treatment. Patient has a safety plan that includes presenting to the closest ER or calling 911 if feeling unsafe. Functional status at discharge: independent ambulation Overall status at discharge: patient is back to baseline Time Spent with Patient Time attestation: Total time managing care of this patient today _20___ minutes. Time spent: Less than 30 minutes Discharge Plan Discharge Anticipated Discharge Date/Time: 01/28/24 09:00 Patient Disposition: Home, Self-Care Discharge Diagnosis: PTSD, Chronic Opioid Use Disorder Referrals: Mari Arnold (OTP) [Other] - 01/29/24 9:00 am (bring ID and last dose letter with you to this appointment.) Marlyn Vilal ([facility] Psychiatrist) [Other] - 02/28/24 11:00 am (In-person appointment.) Charo Wang ([facility] therapist) [Other] - 02/04/24 12:00 pm (In person appointment) Holly Munoz MD [Primary Care Provider] - 02/12/24 10:30 am (your follow up appt has been scheduled with Renae at Dr. Thiago Hatch on Saturday02-12-24 @ 10:30am) Discharge Medications: New melatonin 3 mg Tablet 6 mg PO BEDTIME 30 Days Qty: 60 0RF hydroxyzine HCl 25 mg Tablet 25 mg PO BID PRN (Reason: Anxiety) 30 Days Qty: 60 0RF fluoxetine 20 mg Capsule 20 mg PO DAILY 30 Days Qty: 30 0RF No Action No Known Home Meds Discharge Orders: Discharge Order (Routine); Ordered 01/28/24 Ordered By: Luis A Thorpe Diet: Advance to usual diet Activity on Discharge: As tolerated Stand Alone Forms: Patient Portal Discharge page, Community Support Print Language: Indian Care Plan Goals: remain safe, sober, and stable in the outpatient treatment setting Health Concerns: none Plan of Treatment: take medications as prescribed, attend appointments as scheduled Assessment: not at imminent risk of harm to self or others Discharge Date/Time: 01/28/24 09:04
== END 2024-01-28 09:04 | disposition home or self-care (01) | DRG 754 ==
LOC: HO.ED 17:07 → HO.PADLT16 01-21 12:01
PROVIDERS: Psychiatry & Neurology Psychiatry; Admitting Provider Registered Nurse; Emergency Provider Emergency Medicine; PCP Internal Medicine; Responsible Provider Registered Nurse; Visit Provider Psychiatry & Neurology Psychiatry
DX: F32.A Depression, unspecified (principal); R45.851 Suicidal ideations; F17.210 Nicotine dependence, cigarettes, uncomplicated; Z20.822 Contact with and (suspected) exposure to COVID-19; Z71.6 Tobacco abuse counseling; F43.10 Post-traumatic stress disorder, unspecified; F11.90 Opioid use, unspecified, uncomplicated; Z79.899 Other long term (current) drug therapy
CPT/HCPCS: 36415; 80053; 80061; 80143; 80179; 80307; 81003; 85025; 86704; 86706; 86709; 86803; 87340; 87389; 87635; 93005; 99285; J2060; J2765; S9485

== ENCOUNTER → 2024-01-21 11:08 | Outpatient (BNV) | payer OTHER, SELFPAY | PROVIDERS: Admitting Provider Registered Nurse; Emergency Provider Emergency Medicine; PCP Internal Medicine; Responsible Provider Registered Nurse; Visit Provider Nurse Practitioner Psychiatric/Mental Health | DX: F11.90 Opioid use, unspecified, uncomplicated (principal) | CPT/HCPCS: 99499 ==

== ENCOUNTER → 2024-01-21 11:08 | Outpatient (BNV) | payer OTHER, SELFPAY | PROVIDERS: Admitting Provider Registered Nurse; Emergency Provider Emergency Medicine; PCP Internal Medicine; Responsible Provider Registered Nurse; Visit Provider Registered Nurse | DX: F32.2 Major depressive disorder, single episode, severe without psychotic features (principal); F11.90 Opioid use, unspecified, uncomplicated; F43.11 Post-traumatic stress disorder, acute | CPT/HCPCS: 90792; 99231; 99232; 99238 ==

== ENCOUNTER 2024-02-12 10:38 | Outpatient (AMB) | payer OTHER, SELFPAY ==
[2024-02-12 10:44] VITALS: BP 126/62; PULSE 66; O2SAT 94; BMI 26.7
--- NOTE | 2024-02-12 10:44 | A.OFFPC_ITS ---
Vital Signs 02/12/24 10:44 Height 5 ft 10 in Weight 186 lb BMI 26.7 BP 126/62 Blood Pressure Location Lt brachial Position Sitting Pulse 66 Pulse Source Pulse Oximeter Pulse Oximetry (%) 94 Oxygen Delivery Method Room Air Intake [place] [facility] [place] depressive disorder and PTSD Access Services Librarian Required: No Accompanied by: Self / Same As Patient Allergies tizanidine Allergy (Unknown, Verified 02/12/24 10:45) hives Tobacco use date assessed: 02/12/24 Dental Screening Dental Screen Date: 09/03/23 HPI HPI Comments History of Present Illness Details 33 y/o male patient who presents to the clinic for HDF. He was admitted at [facility] [place] 01/[place]24 for PTSD, Depressive mood and SI. He was discharged home on medications on 01/28/24. He has upcoming appointment with Psych (Dr. Villa @ [facility]) on 02/28/24. His Appointment with Mental health Therapist on 02/03 was cancelled, he needs to reschedule with them.New medications started from hospital include; Fluoxetine 20 mg daily, Melatonin 5 mg, and Hydroxyzine 25 mg BID. He was on Methadone 10 mg while in the hospital. Pt desires no medications to help cope with his Opioid disorder. Today Pt c/o low midline chronic back pain for years now. He got addicted to taking Percocet for chronic pain. [facility] Medical History Onychomycosis Surgical History History of hand surgery H/O hernia repair Hx of appendectomy H/O lumbar discectomy Family History Mother Cancer Father No problems noted. Brother No problems noted. Sister No problems noted. 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 Shayan Munoz, Vanessa Corrales, Nigel Zapien and colleagues, with an educational kev from [employer]. Review of Systems Const All systems reviewed & are unremarkable except as noted in HPI and below Physical exam (Primary Care) Vital Signs: Last Vital Signs Pulse 66 02/12/24 10:44 BP 126/62 02/12/24 10:44 Pulse Ox 94 02/12/24 10:44 Oxygen Delivery Method Room Air 02/12/24 10:44 BMI result Body Mass Index 26.7 Tobacco/Smoking Status: Tobacco use Status Tobacco use date assessed 02/12/24 02/12/24 10:50 Patient Tobacco Use Status Current everyday Tobacco 02/12/24 10:47 Tobacco use type Cigarette 02/12/24 10:47 e-Cigarette/Vaping Use Never Used 02/12/24 10:47 Thrive Assessment: Date of Thrive Assessment Date Thrive assessed 07/03/22 02/12/24 10:47 Const General: cooperative, comfortable and no acute distress Orientation/consciousness: patient oriented x3 Resp Effort & Inspection: normal respiratory effort Cardio Heart sounds: S1 normal heart sound present and S2 normal heart sound present Back/Spine/Pelvis Other: well healed medium scar on the back, from previous surgery Back: back tenderness Thoracic/Lumbar Spine: lumbar spinal tenderness Neuro General: patient oriented x3, gait normal and moves all extremities Psych Speech and movement: Normal speech and movement present Thought process: Normal thought process present Thought content: suicidality, no homicidality, no delusions and no hallucinations Insight: Good insight present (Psych) Coding Level of Care Code Est Pt Level 4 (29974) Diagnoses PTSD (post-traumatic stress disorder) F43.10 Opioid use disorder F11.90 Depressive disorder F32.A Chronic midline low back pain without sciatica M54.50; G89.29 Chronicity: chronic Back pain laterality: midline Sciatica presence: without sciatica Time Spent (min) 20 Comment SPENT REVIEWING HOSPITAL NOTES Assessment & Plan Assessment & Plan (1) PTSD (post-traumatic stress disorder): Code(s): F43.10 - Post-traumatic stress disorder, unspecified Category: Medical Plan: Follow up with Psych as scheduled (2) Opioid use disorder: Code(s): F11.90 - Opioid use, unspecified, uncomplicated Category: Medical Plan: Follow up with Psych as scheduled (3) Depressive disorder: Code(s): F32.A - Depression, unspecified Plan: Follow up with Psych as scheduled (4) Low back pain: Code(s): M54.50 - Low back pain, unspecified Qualifiers: Chronicity: chronic Back pain laterality: midline Sciatica presence: without sciatica Qualified Code(s): M54.50 - Low back pain, unspecified; G89.29 - Other chronic pain Plan: Started him on Gabapentin today NSIADs and Acetaminophen. Medications: New gabapentin 200 mg (2 x 100 mg) PO BEDTIME 90 caps 0RF M54.50 - Low back pain, unspecified Changed From fluoxetine 20 mg PO DAILY 30 days 30 caps 0RF F11.90 - Opioid use, unspecified, uncomplicated, F32.A - Depression, unspecified, F43.10 - Post- traumatic stress disorder, unspecified To fluoxetine 20 mg PO DAILY 90 caps 0RF F11.90 - Opioid use, unspecified, uncomplicated, F32.A - Depression, unspecified, F43.10 - Post-traumatic stress disorder, unspecified From hydroxyzine HCl 25 mg PO BID 30 days PRN 60 tabs 0RF Anxiety F32.A - Depression, unspecified, F43.10 - Post-traumatic stress disorder, unspecified To hydroxyzine HCl 25 mg PO BID PRN 180 tabs 0RF Anxiety F32.A - Depression, unspecified, F43.10 - Post-traumatic stress disorder, unspecified From melatonin 6 mg (2 x 3 mg) PO BEDTIME 30 days 60 tabs 0RF G47.00 - Insomnia, unspecified To melatonin 6 mg (2 x 3 mg) PO BEDTIME 90 tabs 0RF G47.00 - Insomnia, unspecified
== END 2024-02-12 11:19 | disposition home or self-care (01) ==
LOC: HO.HMCH 10:39
PROVIDERS: PCP Internal Medicine; Visit Provider Nurse Practitioner Family
DX: F43.10 Post-traumatic stress disorder, unspecified (principal); F11.90 Opioid use, unspecified, uncomplicated; F32.A Depression, unspecified; M54.50 Low back pain, unspecified; G89.29 Other chronic pain

== ENCOUNTER → 2024-02-12 10:38 | Outpatient (BNVA) | payer OTHER, SELFPAY | PROVIDERS: PCP Internal Medicine; Visit Provider Nurse Practitioner Family | DX: F43.10 Post-traumatic stress disorder, unspecified (principal); F11.90 Opioid use, unspecified, uncomplicated; F32.A Depression, unspecified; M54.50 Low back pain, unspecified; G89.29 Other chronic pain | CPT/HCPCS: 99212 ==

== ENCOUNTER 2024-09-10 09:31 | Outpatient (AMB) | payer OTHER, SELFPAY ==
--- NOTE | 2024-09-10 09:39 | MHC.PC.OV ---
Vital Signs 09/10/24 09:41 Height 5 ft 10 in Weight 178 lb BMI 25.5 BP 132/80 Blood Pressure Location Lt brachial Position Sitting Intake Visit Reasons: annual exam Intake Note: Patient here for a physical exam Engraver Picture Required: No Accompanied by: Self / Same As Patient Allergies tizanidine Allergy (Unknown, Verified 09/10/24 09:54) hives Medication List - Last Reconciled 09/10/24 by Holly Hatch MD No Known Home Meds Tobacco use date assessed: 09/10/24 Dental Screening Dental Screen Date: 09/10/24 Did you have a dental visit in the last 12 months?: Yes Did you have a dental problem in the last 6 months where you did not have access to dental care?: No Was dental information given to patient?: Patient has dentist HPI HPI Comments History of Present Illness Details The patient is a 34-year-old male presenting for his physical exam. Has knee pain and mild anxiety and depression. He reports that the left knee pain has persisted for four to five months, occurring mainly during activities like stair climbing. There was no specific injury that led to the onset of pain. The patient has been trying to manage the pain through daily stretching and light exercises. Additionally, the patient experiences mild depression and anxiety, with reported difficulties in sleep initiation. A PHQ-9 score of 9 indicates mild depressive symptoms. The patient is not currently undergoing any treatment but is open to exploring counseling options. The patient has a history of lumbar discectomy in 2019 and an allergy to cesanidine, which causes hives. He reports occasional alcohol consumption and daily tobacco use. There is a positive family history of cancer, though the type is unspecified. - Discussed Tdap vaccination, patient declined at this time. - Recommended routine blood work to assess cholesterol, glucose, renal, and hepatic function. - Discussed the importance of smoking cessation. - Addressed need for mental health counseling referral to address anxiety and mild depression. [facility] Medical History Onychomycosis Surgical History History of hand surgery H/O hernia repair Hx of appendectomy H/O lumbar discectomy Family History Mother Cancer Father No problems noted. Brother No problems noted. Sister No problems noted. 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 1. Little interest or pleasure in doing things: several days 2. Feeling down, depressed, or hopeless: several days 3. Trouble falling or staying asleep, or sleeping too much: nearly every day 4. Feeling tired or having little energy: more than half the days 5. Poor appetite or overeating: several days 6. Feeling bad about yourself - or that you are a failure or have let yourself or your family down: not at all 7. Trouble concentrating on things, such as reading the newspaper or watching television: several days 8. Moving or speaking so slowly that other people could have noticed. Or the opposite - being so fidgety or restless that you have been moving around a lot more than usual: not at all 9. Thoughts that you would be better off or of hurting yourself in some way: not at all Total score: 9 Depression Screening Interpretation: Positive Depression Screening Follow-up: Existing condition and Follow-up Visit Requested Depression Screening Done: Yes 85985 - PHQ-9 Billing: Yes Source: Developed by Drs. Shayan Munoz, Vanessa Corrales, Nigel Zapien and colleagues, with an educational kev from [employer] Thrive Questionnaire Date Thrive assessed: 09/10/24 I am a: Patient What is your living situation today?: I choose not to answer this question Within the past 12 months, did the food you bought not last and you didn't have the money to get more?: I choose not to answer this question Within the past 12 months, did you worry whether your food would run out before you got money to buy more?: I choose not to answer this question Do you have trouble paying for medicines?: I choose not to answer this question Do you have trouble getting transportation to medical appointments?: No Do you have trouble paying your heating and electricity bill?: I choose not to answer this question Do you have trouble taking care of your child, family member or friend?: No Do you have trouble with day-to-day activities such as bathing, preparing meals, shopping, managing finances, etc.?: I choose not to answer this question Are you currently unemployed and looking for a job?: No Are you interested in more education?: I choose not to answer this question Please select the resources that you would like help with: None Currently or been in a relationship where the following occur: I choose not to answer THRIVE Score: 0 AUDIT C Alcohol Use Questionnaire (AUDIT-C) 1. How often do you have a drink containing alcohol?: Monthly or less 2. How many drinks containing alcohol do you have on a typical day when you are drinking?: 3 or 4 3. How often do you have six or more drinks on one occasion?: Never Total Score: 2 Score Reviewed/Action Taken: No VALDEZ-7 AMB Questionnaire VALDEZ-7 Date VALDEZ - 7 assessed: 09/10/24 Feeling nervous, anxious, or on edge: 2 = More than half the days Not being able to stop or control worryin = Several days Worrying too much about different things: 1 = Several days Trouble relaxin = Several days Being so restless that it is hard to sit still: 0 = Not at all Becoming easily annoyed or irritable: 1 = Several days Feeling afraid as if something awful might happen: 0 = Not at all Total VALDEZ-7 score (0-4 normal; 5-9 mild; 10-14 moderate; 15-21 severe): 6 Source: Developed by Drs. Shayan Munoz, Vanessa Corrales, Nigel Zapien and colleagues, with an educational kev from [employer]. VALDEZ-7 Assessment Billing VALDEZ-7 Assessment Tool: VALDEZ-7 Assessment 20756 Review of Systems Const All systems reviewed & are unremarkable except as noted in HPI and below Card Denies chest pain at rest, Denies chest pain with activity, Denies edema, Denies irregular heart rhythm, Denies claudication, Denies dyspnea, Denies dyspnea on exertion, Denies orthopnea, Denies paroxysmal nocturnal dyspnea and Denies slow heart rate Resp Denies cough, Denies dyspnea and Denies dyspnea on exertion GI Denies abdominal pain, Denies change in bowel habits, Denies excessive flatus, Denies nausea and Denies vomiting Neuro Denies behavioral changes and Denies lack of coordination Psych Denies behavioral changes Physical exam (Primary Care) Vital Signs: Last Vital Signs BP 132/80 09/10/24 09:41 BMI result Body Mass Index 25.5 Tobacco/Smoking Status: Tobacco use Status Tobacco use date assessed 09/10/24 09/10/24 09:45 Patient Tobacco Use Status Current everyday Tobacco 09/10/24 09:45 Tobacco use type Cigarette 09/10/24 09:45 e-Cigarette/Vaping Use Never Used 09/10/24 09:45 PHQ-9: PHQ-9 Score PHQ-9: Total score 9 09/10/24 09:45 Depression Screening Interpretation: Positive Depression Screening Follow-up: Existing condition and Follow-up Visit Requested Thrive Assessment: Date of Thrive Assessment Date Thrive assessed 09/10/24 09/10/24 09:45 Currently or been in a relationship where the following occur: I choose not to answer HENMT Head: Yes normal to inspection, Yes normocephalic and Yes atraumatic Ears: external ears normal Eyes General: appearance normal, both eyes and all related structures Eyelids: Yes eyelids normal Conjunctivae: conjunctivae normal Neck Neck: Yes normal visual inspection and Yes supple Resp Effort & Inspection: normal respiratory effort Auscultation: clear to auscultation bilaterally Cardio Jugular venous distension: no JVD Rate: regular rate Rhythm: regular rhythm Heart sounds: S1 normal heart sound present and S2 normal heart sound present GI Inspection: Yes normal to inspection Palpation (GI): Soft to palpation and nontender Auscultation: normal bowel sounds Skin General skin exam: no rashes or lesions noted Neuro General: no focal motor deficits Extrem General: Yes full ROM Psych Appearance: grossly normal Coding Level of Care Code Est Pt Level 3 (08405) Est Pt Prev Care 18-39y(81669) Diagnoses Physical exam Z00.00 Left knee pain M25.562 Mild major depression F32.0 VLADEZ (generalized anxiety disorder) F41.1 Additional Codes PHQ-9 - 78301 - PHQ-9 Billing: Yes ([id number]) VALDEZ-7 Assessment Billing - VALDEZ-7 Assessment Tool: VALDEZ-7 Assessment 99062 ([id number]) Time Spent (min) 32 Assessment & Plan Assessment & Plan (1) Physical exam: Code(s): Z00.00 - Encounter for general adult medical examination without abnormal findings Category: Medical (2) Left knee pain: Code(s): M25.562 - Pain in left knee Category: Medical (3) Left knee pain: Code(s): M25.562 - Pain in left knee Category: Medical (4) Mild major depression: Code(s): F32.0 - Major depressive disorder, single episode, mild Category: Medical (5) VALDEZ (generalized anxiety disorder): Code(s): F41.1 - Generalized anxiety disorder Category: Medical Plan An x-ray of the left knee was ordered to assess for any underlying issues contributing to the patient's pain. I provided a referral for counseling to address the patient's mild depression and anxiety, highlighting the importance of mental health support. Routine blood work was advised to monitor cholesterol, glucose, and organ function, and I encouraged the patient to continue his physical activity routine. The patient was advised on the benefits of smoking cessation, though he is not currently ready to quit. The Tdap vaccine was discussed, but the patient declined. Follow-up was suggested to monitor any changes in symptoms. Patient was informed and verbally consented to the use of an ambient scribe for clinic note documentation during this visit. I discussed with the patient the likely diagnosis of musculoskeletal strain or overuse related to his knee pain and the next steps involving an x-ray for further assessment. We reviewed the importance of addressing his mild depression and anxiety, and I provided a referral for counseling services. The potential benefits and challenges of lifestyle modifications, such as smoking cessation and increased physical activity, were discussed. I emphasized the importance of routine health maintenance, including blood work to monitor overall health. We reviewed the risks and benefits of the Tdap vaccine, although the patient chose to decline vaccination at this visit. Follow-up plans were discussed, including monitoring his knee pain and mental health symptoms. Orders: Orders XR knee LT 2V Today M25.562 - Pain in left knee Comprehensive [place]. Panel Fast Today Z00.00 - Encounter for general adult medical examination without abnormal findings Lipid Panel Today Z00.00 - Encounter for general adult medical examination without abnormal findings Referrals Counseling Referral F32.0 - Major depressive disorder, single episode, mild, F41.1 - Generalized anxiety disorder Patient Instructions: - Schedule an x-ray for your left knee. - Follow up with counseling services for anxiety and mild depression. - Continue stretching and light exercises for knee pain management. - Consider reducing smoking; resources are available if you decide to quit. - Schedule routine blood work as advised. - Monitor for any changes in symptoms and report them promptly.
[2024-09-10 09:41] VITALS: BP 132/80; BMI 25.5
== END 2024-09-10 10:05 | disposition home or self-care (01) ==
LOC: HO.HMCH 09:32
PROVIDERS: PCP Internal Medicine; Visit Provider Internal Medicine
DX: Z00.00 Encounter for general adult medical examination without abnormal findings (principal); M25.562 Pain in left knee; F32.0 Major depressive disorder, single episode, mild; F41.1 Generalized anxiety disorder

== ENCOUNTER → 2024-09-10 09:31 | Outpatient (BNVA) | payer OTHER, SELFPAY | PROVIDERS: PCP Internal Medicine; Visit Provider Internal Medicine | DX: Z00.01 Encounter for general adult medical examination with abnormal findings (principal); M25.562 Pain in left knee; F32.0 Major depressive disorder, single episode, mild; F41.1 Generalized anxiety disorder | CPT/HCPCS: 96127; 99212; 99395 ==

== ENCOUNTER 2024-09-24 11:16 | Emergency (ER) | payer OTHER, SELFPAY ==
[2024-09-24 11:21] VITALS: BP 150/80; PULSE 66; O2SAT 99
[2024-09-24 11:22] VITALS: BP 155/75; PULSE 65; RESP 18; TEMP 36.9; O2SAT 99; BMI 24.4
[2024-09-24 11:40] LABS: MANUAL DIFF FLAG NO
[2024-09-24 11:42] LABS: Basophils Percent Auto 0.1 % (0-2); Eosinophils Absolute Auto 0.1 X10*3/uL (0.0-0.4); Eosinophils Percent Auto 1.1 % (0-4); Hematocrit 41.5 % (42.0-52.0); Hemoglobin 14.1 g/dl (14.0-18.0); Imm Gran Abs Auto 0.01 X10*3/uL (0.00-0.03); Imm Gran Pct Auto 0.1 % (0.0-0.4); Lymphocytes Absolute Auto 2.6 X10*3/uL (1.2-4.9); Lymphocytes Percent Auto 36.3 % (20-40); Mean Corpuscular Hemoglobin 29.9 pg (27.0-33.0); Mean Corpuscular Volume 87.9 fL (80.0-98.0); Mean Platelet Volume 9.2 fL (9.4-12.4); Monocytes Absolute Auto 0.3 X10*3/uL (0.1-1.2); Monocytes Percent Auto 4.5 % (2-11); Neutrophils Absolute Auto 4.1 x10*3/uL (2.0-8.3); Neutrophils Percent Auto 57.9 % (45-73); Platelet Count 246 X10*3/uL (160-400); Red Blood Count 4.72 X10*6/uL (4.60-5.80); Red Cell Distribution Width 12.2 % (11.0-16.0); White Blood Count 7.1 X10*3/uL (4.8-10.8)
--- NOTE | 2024-09-24 11:44 | ED_ITS ---
HPI - Nausea/Vomiting/Diarrhea General Chief complaint: Nausea/Vomiting/Diarrhea Stated complaint: N/V/D,ABD PAIN X3D,PUJA OUT @10YRS PER EMS Time Seen by Provider: 09/24/24 11:25 Source: patient Mode of arrival: ambulatory Limitations: no limitations History of Present Illness ED Provider: ABEL HPI Narrative: 34 yo male with no sig PMH here with c/o upper abdominal pain n/v/d who notes he started with this about 2 days ago. Now his daughter has it. He has no known preceding event travel food exposure or abx use. He cannot keep anything down. He has never had this before. He feels weak and tired with a headache. MD elicited complaint: nausea, vomiting, diarrhea and abdominal pain Onset (ago): day(s) (2) Description of vomiting: food contents and watery Description of diarrhea: watery Associated nausea: Yes Associated abdominal pain: Yes Location of pain: epigastric Pain consistency: constant Quality: aching Exacerbating factors: eating and vomiting Relieving factors: none Context: sick contacts Associated symptoms: myalgias, headaches, loss of appetite, malaise and nausea/vomiting Related Data Previous Rx's ?Medication ?Instructions ?Recorded ondansetron 4 mg disintegrating 4 mg PO Q8H PRN nausea and 09/24/24 tablet vomiting #20 tabs Allergies Allergy/AdvReac Type Severity Reaction Status Date / Time tizanidine Allergy Unknown hives Verified 09/24/24 11:22 Review of Systems 2 Review of Systems: Constitutional : No Weight loss, No Fever, No Chills ENT/Mouth : No sore throat, No Rhinorrhea Eyes: No Swelling, No Redness Cardiovascular : No Chest Pain, No SOB, NoEdema Respiratory : No Cough, No Sputum, No Wheezing Gastrointestinal : Positive Nausea, Positive Vomiting, positive Diarrhea, positive abdominal Pain, No Hematochezia, No Melena Genitourinary : No Dysuria, No Urinary Frequency, No Hematuria, No Urgency Musculoskeletal : No joint pain, No Myalgias, No Joint Swelling Skin : No Skin Lesions, No rash Neuro : No Weakness, No Numbness, No Dizziness, No Headache Psych : No Anxiety/Panic, No Depression Heme/Lymph: No Bruising, No Lymphadenopathy Endocrine : No Polyuria, No Polydipsia All other systems reviewed and are negative. Gastrointestinal: Gastrointestinal: Reports nausea PMFSH Past Medical History Attestation statement: The following information was validated with the patient. Source: old records reviewed Medical History Onychomycosis Surgical History History of hand surgery H/O hernia repair Hx of appendectomy H/O lumbar discectomy Family History Family History Mother Cancer Father No problems noted. Brother No problems noted. Sister No problems noted. Maternal Grandmother Leukemia Social History Social History Household Members: Spouse and Children Housing: House Do you presently have visiting nurse or other home services: No Alcohol intake: current Alcohol intake frequency: a few times a month Alcohol type: beer and wine Patient Tobacco Use Status: Current everyday Tobacco user Tobacco use type: Cigarette Cigarette Packs Per Day: 1 e-Cigarette/Vaping Use: Never Used Second Hand Smoke Exposure: No Substance Use Type: Crack/Cocaine, Marijuana and Opiates Advance Directives: No Advance Directives Information Provided: Yes Do you have a plan to hurt others: No Plan service: No Current occupational status: employed 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 Oriented X3. No acute distress. active vomiting Eyes: Pupils equal, round and reactive to light. ENT: Pharynx normal. Neck: Normal inspection. Neck supple. CVS: Normal heart rate and rhythm. Pulses normal. Respiratory: No respiratory distress. Breath sounds normal. Abdomen: Soft and moderate epigastric ttp Skin: Skin warm and dry. Normal skin color. Normal skin turgor. Extremities: No lower extremity edema. No calf ttp Neuro: Oriented X 3. No motor deficit. No sensory deficit. CN2-12 intact Medications Administered Discontinued Medications Generic Name Dose Route Start Last Admin Trade Name Candis PRN Reason Stop Dose Admin Diphenhydramine HCl 25 mg 09/24/24 12:46 09/24/24 12:52 Diphenhydramine Hcl 50 Mg/Ml Vial IVPUSH 09/24/24 12:47 25 mg ONCE ONE Administration Droperidol 1.25 mg 09/24/24 12:46 09/24/24 12:52 Droperidol 5 Mg/2 Ml Vial IVPUSH 09/24/24 12:47 1.25 mg ONCE ONE Administration Famotidine 20 mg 09/24/24 11:29 09/24/24 11:50 Famotidine/Pf 20 Mg/2 Ml Vial IVPUSH 09/24/24 11:30 20 mg ONCE ONE Administration Lactated Ringer's 1,000 mls @ 999 mls/hr 09/24/24 11:29 09/24/24 14:12 Lr IV 09/24/24 12:29 Infused .Q1H1M ONE Infusion Ketorolac Tromethamine 15 mg 09/24/24 11:29 09/24/24 11:50 Ketorolac Tromethamine 15 Mg/Ml Vial IVPUSH 09/24/24 11:30 15 mg ONCE ONE Administration Ondansetron HCl 4 mg 09/24/24 11:29 09/24/24 11:50 Ondansetron Hcl 4 Mg/2 Ml Vial IVPUSH 09/24/24 11:30 4 mg ONCE ONE Administration Medical Decision Making Medical Decision Making [facility] Narrative: 34 yo male with no sig PMH has had appendectomy here with c/o abd pain n/v/d and not feeling well with aches and headaches - he will need labs and supportive medications. He has no localized pain and his daughter has the same thing. At this time will obtain labs and start on IVF and supportive medications. Suspect viral syndrome Differential Diagnosis Differential Diagnoses: The differential diagnosis associated with the presentation includes viral syndrome, dehydration, enteritis Admission/Observation Consideration of admission/observation: Escalation of care including admission/observation considered tolerating PO feels better stable for DC Lab Data [facility] Lab Attestation statement: I reviewed the patient's lab results. 09/24/24 11:35 09/24/24 12:09 Labs: Lab Results 09/24/24 09/24/24 Range/Units 11:35 12:09 WBC 7.1 (4.8-10.8) X10*3/uL RBC 4.72 (4.60-5.80) X10*6/uL Hgb 14.1 (14.0-18.0) g/dl Hct 41.5 L (42.0-52.0) % MCV 87.9 (80.0-98.0) fL MCH 29.9 (27.0-33.0) pg MCHC 34.0 (31.0-36.0) g/dl RDW 12.2 (11.0-16.0) % Plt Count 246 (160-400) X10*3/uL MPV 9.2 L (9.4-12.4) fL Immature Gran % (Auto) 0.1 (0.0-0.4) % Neut % (Auto) 57.9 (45-73) % Lymph % (Auto) 36.3 (20-40) % [place] % (Auto) 4.5 (2-11) % Eos % (Auto) 1.1 (0-4) % Baso % (Auto) 0.1 (0-2) % Lymph # (Auto) 2.6 (1.2-4.9) X10*3/uL [place] # (Auto) 0.3 (0.1-1.2) X10*3/uL Eos # (Auto) 0.1 (0.0-0.4) X10*3/uL Baso # (Auto) 0.0 (0.0-0.2) X10*3/uL Abs Immat Gran (auto) 0.01 (0.00-0.03) X10*3/uL Absolute Neuts (auto) 4.1 (2.0-8.3) x10*3/uL Absolute Nucleated RBC 0.000 (0.0-0.012) X10*3/uL Nucleated RBC % (auto) 0.0 (0.0-0.2) /100WBC Sodium 141 (135-145) mmol/L Potassium 3.6 (3.3-5.1) mmol/L Chloride 106 (96-108) mmol/L Carbon Dioxide 28 (22-29) mmol/L Anion Gap 11 L (12-20) BUN 13 (9-16) mg/dL Creatinine 0.80 (0.5-1.4) mg/dL Estim Creat Clear Calc 135.6 Estimated GFR > 60 Random Glucose 119 H (60-115) mg/dL Calcium 9.2 D (8.4-10.2) mg/dL Total Bilirubin 0.5 (0.0-1.0) mg/dL AST 18 (5-37) U/L ALT 15 (0-40) U/L Alkaline Phosphatase 60 (39-117) U/L Total Protein 7.0 (6.5-8.0) g/dL Albumin 4.3 (3.5-5.0) g/dL Lipase 33 (8-78) U/L Influenza Type A (PCR) NEGATIVE (Negative) Influenza Type B (PCR) NEGATIVE (Negative) RSV RNA Qual (PCR) NEGATIVE (Negative) SARS-CoV-2 RNA (RT-PCR) NEGATIVE (Negative) External Record Review External record reviewed: Outpatient record Prescription Management I considered prescription management with: Other Discharge Plan Discharge Clinical Impression: Nausea & vomiting Qualifiers: Vomiting type: unspecified Qualified Code(s): R11.2 - Nausea with vomiting, unspecified Patient Disposition: Home, Self-Care Instructions: Acute Nausea and Vomiting (ED) Additional Instructions: labs reassuring negative for covid, flu, rsv bland diet for 48 hours - bananas, rice, apple sauce and toast rest and stay hydrated return for any worsening symptoms or concerns. Prescriptions: New ondansetron 4 mg tablet,disintegrating 4 mg PO Q8H PRN (Reason: nausea and vomiting) Qty: 20 0RF Print Language: Irish
[2024-09-24] MEDS: Lactated Ringers 1,000 ML 999 ML IV (11:47)
[2024-09-24] MEDS: Famotidine/PF 20 MG/2 ML VIAL IVPUSH (11:50)
[2024-09-24] MEDS: ondansetron HCL 4 MG/2 ML VIAL IVPUSH (11:50)
[2024-09-24] MEDS: Ketorolac Tromethamine 15 MG/ML VIAL IVPUSH (11:50)
[2024-09-24 12:25] LABS: Influenza A PCR NEGATIVE (Negative); Influenza B PCR NEGATIVE (Negative); Resp Syncy Virus RNA Qual PCR NEGATIVE (Negative); SARS COV2 PCR INHOUSE NEGATIVE (Negative)
[2024-09-24 12:31] LABS: Alanine Aminotransferase 15 U/L (0-40); Albumin Level 4.3 g/dL (3.5-5.0); Alkaline Phosphatase 60 U/L (39-117); Anion Gap 11 (12-20); Aspartate Amino Transferase 18 U/L (5-37); Bilirubin Total 0.5 mg/dL (0.0-1.0); Blood Urea Nitrogen 13 mg/dL (9-16); Calcium 9.2 mg/dL (8.4-10.2); Carbon Dioxide 28 mmol/L (22-29); Chloride 106 mmol/L (96-108); Creatinine Clr Calc Pharmacy 135.6; Estimated Glomerular Filt Rate > 60; Glucose Random 119 mg/dL (60-115); Lipase 33 U/L (8-78); Potassium 3.6 mmol/L (3.3-5.1); Sodium 141 mmol/L (135-145)
[2024-09-24] MEDS: droPERidol 5 MG/2 ML VIAL 1.25 MG IVPUSH (12:52)
[2024-09-24] MEDS: diphenhydrAMINE HCL 50 MG/ML VIAL 25 MG IVPUSH (12:52)
[2024-09-24 14:17] VITALS: BP 132/82; PULSE 58; RESP 14; TEMP 36.4; O2SAT 99
--- NOTE | 2024-09-24 14:18 | PC.NURSE ---
resting quietly on stretcher, no distress noted. not actively vomiting at this time
[2024-09-24 15:01] VITALS: BP 132/82; PULSE 58; RESP 14; TEMP 36.4; O2SAT 99
== END 2024-09-24 15:01 | disposition home or self-care (01) ==
PROVIDERS: Emergency Provider Emergency Medicine; PCP Internal Medicine
DX: R11.2 Nausea with vomiting, unspecified (principal); R10.2 Pelvic and perineal pain; R19.7 Diarrhea, unspecified; R51.9 Headache, unspecified; F17.210 Nicotine dependence, cigarettes, uncomplicated; Z03.818 Encounter for observation for suspected exposure to other biological agents ruled out; Z79.899 Other long term (current) drug therapy
CPT/HCPCS: 0241U; 80053; 83690; 85025; 96361; 96374; 96375; 99284; 99285; J1200; J1308; J1790; J1885; J2405; J7120

== ENCOUNTER 2025-01-30 07:54 | Inpatient (IN) | payer OTHER, SELFPAY ==
[2025-01-30] VITALS (13 sets, daily range): BP systolic 107–148; BP diastolic 52–90; PULSE 60–98; RESP 12–20; TEMP 36.6–37.3; O2SAT 94–100; BMI 25.1; BMI 25.8
--- NOTE | ~2025-01-30 | CT_ITS ---
CLINICAL HISTORY: abd pain nausea vomiting CT abdomen and pelvis with IV contrast Comparison: CT - CT ABDOMEN PELVIS W IV CON - 01/30/25 10:18 EDT Findings: Lung bases show no active disease. No dependent layering pleural effusions. The heart is not enlarged. Coronary artery calcifications: None. Liver normal size and contour. No focal hepatic lesions. Patent hepatic and portal veins. Physiologic distention of the gallbladder with no radiopaque gallstones. Homogeneous enhancement of the pancreas. No splenomegaly. Normal adrenal glands. Symmetrical renal excretion with no segmental or diffuse renal parenchymal disease or evidence of obstructive uropathy/hydroureteronephrosis. Normal caliber abdominal aorta. Bowel demonstrates a nonobstructive pattern. No free air. Enterocolitis which includes the terminal ileum.Appendix not visualized.No significant diverticular disease. No intraperitoneal, retroperitoneal, pelvic or inguinal masses lymphadenopathy or abnormal fluid collections. Normal distention of the urinary bladder. No vertebral body compression fractures or spondylolisthesis. No bony destructive lesions. Impression: 1. Enterocolitis. This includes the terminal ileum. No significant diverticular disease. Appendix not visualized correlate clinically. 2. No radiopaque gallstones equivocal gallbladder wall thickening. No biliary dilatation. Normal pancreas. 3. No renal parenchymal disease or evidence of obstructive uropathy. This document has been electronically signed by: Silvio Kilpatrick MD on 01/30/2025 12:44:45
--- NOTE | ~2025-01-30 | US_ITS ---
CLINICAL HISTORY: Right lower quadrant pain question appendicitis US abdomen limited Comparison: CT/SR - CT ABDOMEN PELVIS W IV CON - 01/30/25 10:34 EDT Findings: Right iliac vessels are patent. Appendix not visualized. No free fluid, mass, adenopathy, or echogenic fat. Equivocal gallbladder sludge Impression: 1. Appendix not visualized. No secondary evidence of appendicitis. This does not exclude the possibility of appendicitis with the appropriate clinical signs/symptoms. Equivocal gallbladder sludge. This document has been electronically signed by: Silvio Kilpatrick MD on 01/30/2025 15:54:06
--- NOTE | 2025-01-30 09:23 | ED_ITS ---
HPI - General Adult General Chief complaint: Abdominal Pain Stated complaint: NAUSEA,VOMITING SINCE A FEW DRNKS LAST NIGHT Time Seen by Provider: 01/30/25 08:09 Source: patient and EMS Mode of arrival: EMS Limitations: no limitations History of Present Illness ED Provider: JIMBO Ravi HPI narrative: This is a 34-year-old male history of alcohol use disorder, PTSD else, opiate use disorder anxiety, depression who presents to the emergency department with severe nausea, vomiting and abdominal pain. Worse in the epigastric region and right lower quadrant. Patient reports it started last night at some point. Has a hard time telling me details. Reports pain is severe /. He is rocking in the bed upon history taking. Denies vomiting blood. Denies changes in urinary or bowel habits denies fevers, chills, headache, vision changes, chest pain and shortness of breath. He does report he drank a lot of Tequila last night. He also endorses marijuana use. Related Data Previous Rx's ?Medication ?Instructions ?Recorded ondansetron 4 mg disintegrating 4 mg PO Q8H PRN nausea and 09/24/24 tablet vomiting #20 tabs Allergies Allergy/AdvReac Type Severity Reaction Status Date / Time tizanidine Allergy Unknown hives Verified 01/30/25 08:13 Review of Systems 2 Review of Systems: Yes all other systems are reviewed and are negative PMFSH Past Medical History Attestation statement: The following information was validated with the patient. Source: old records reviewed and nursing notes reviewed Medical History Onychomycosis Surgical History History of hand surgery H/O hernia repair Hx of appendectomy H/O lumbar discectomy Family History Family History Mother Cancer Father No problems noted. Brother No problems noted. Sister No problems noted. Maternal Grandmother Leukemia Social History Social History Household Members: Spouse and Children Housing: House Do you presently have visiting nurse or other home services: No Alcohol intake: current Alcohol intake frequency: a few times a month Alcohol type: beer and wine Patient Tobacco Use Status: Current everyday Tobacco user Tobacco use type: Cigarette Cigarette Packs Per Day: 1 Smoked in Last 30 Days: No e-Cigarette/Vaping Use: Never Used Second Hand Smoke Exposure: No Use of substances other than those prescribed or required for medical reasons: Yes Substance Use Type: Marijuana Advance Directives: No Advance Directives Information Provided: Yes service: No Current occupational status: employed Current occupation: [employer] Current occupational exposures/hazards: No Sexual orientation: Straight/Heterosexual Cognitive needs: No Hearing needs: No Vision needs: No Physical Exam ED Exam Exam: Appearance: Alert.? Oriented X3.? No acute distress.? Head: Normocephalic, atraumatic, no step-offs or deformities Eyes: Pupils equal, round and reactive to light.? Neck: Normal inspection.? Neck supple.? CVS: Normal heart rate and rhythm.? Pulses normal.? Respiratory: No respiratory distress.? Breath sounds normal.? Abdomen: Soft and tenderness to palpation in epigastric and right lower quadrant.? Skin: Skin warm and dry.? Normal skin color.? Normal skin turgor.? Extremities: No lower extremity edema.? No calf ttp. 5/5 strength to bilateral upper and lower extremities Back: No midline tenderness, no C-spine tenderness, full range of motion, no CVA tenderness bilaterally Neuro: Oriented X 3.? No motor deficit.? No sensory deficit. CN 2-12 intact Vital Signs: Vital Signs - 24 hr 01/30/25 08:07 01/30/25 08:11 01/30/25 09:29 Temperature 97.8 F 98 F Pulse Rate 68 80 60 Respiratory Rate 12 20 14 Blood Pressure 128/71 128/71 134/77 Pulse Oximetry 98 98 95 Oxygen Delivery Method Room Air Room Air Room Air 01/30/25 10:00 01/30/25 14:21 01/30/25 14:23 Temperature 98.3 F 99.2 F Pulse Rate 68 67 Respiratory Rate 16 15 14 Blood Pressure 126/66 135/61 Pulse Oximetry 98 100 Oxygen Delivery Method Room Air Room Air BMI result Body Mass Index 25.1 vss Course Reevaluation(s) Reevaluation #1: Patient's CBC with leukocytosis neutrophil predominance. I suspect that this is in the setting of reactivity due to nausea and vomiting. Lipase normal. Patient's ethanol level 104. Time: 09:30 Reevaluation #2: CT abdomen and pelvis entero colitis including the terminal ileum. No significant diverticular disease. Appendix not visualized. No radiopaque gallstones equivocal gallbladder wall thickening. No biliary dilation. No renal parenchymal disease. I did go re-evaluate patient reports he is still in significant pain in his abdomen particularly in the epigastric and right lower quadrant. At this time infection suspected will obtain blood cultures, lactic acid, and give Zosyn for antibiotic coverage. Time: 14:06 Reevaluation #3: Appendix ultrasound appendix not visualized however there is equivocal gallbladder sludge noted. I will reach out to surgery upon re-evaluation again patient is still feeling like he is in pain tender to palpation. Particularly right lower quadrant Time: 16:08 Additional Reevaluation(s): 1612 I did discuss this case with general surgery who states they can not visualize the appendix in any of the imaging. Reports that the stomach looks abnormal concerning for possible upper GI issue. Patient not tolerating p.o. recommend keeping observing until symptoms resolve. Medications Administered Discontinued Medications Generic Name Dose Route Start Last Admin Trade Name Freq PRN Reason Stop Dose Admin Al Hydroxide/Mg Hydroxide 15 ml 01/30/25 14:04 01/30/25 14:20 Magnesium Hydrox/Alum Hydrox 30 Ml Oral.Susp PO 01/30/25 14:05 15 ml ONCE ONE Administration Diphenhydramine HCl 25 mg 01/30/25 09:06 01/30/25 09:21 Diphenhydramine Hcl 50 Mg/Ml Vial IVPUSH 01/30/25 09:07 25 mg ONCE ONE Administration Haloperidol Lactate 2.5 mg 01/30/25 09:05 01/30/25 09:21 Haloperidol Lactate 5 Mg/Ml Vial IVPUSH 01/30/25 09:06 2.5 mg STAT STA Administration Sodium Chloride 1,000 mls @ 999 mls/hr 01/30/25 08:30 01/30/25 11:06 Ns IV 01/30/25 09:30 Infused .Q1H1M MONA Infusion Iohexol 100 ml 01/30/25 10:37 01/30/25 10:37 Iohexol 350 Mg/Ml 100 Ml Infus..Btl IV 01/30/25 10:38 85 ml ONCE ONE Administration Morphine Sulfate 4 mg 01/30/25 14:04 01/30/25 14:21 Morphine Sulfate 4 Mg/Ml Cartridge IVPUSH 01/30/25 14:05 4 mg ONCE ONE Administration Protocol Ondansetron HCl 4 mg 01/30/25 08:28 01/30/25 08:32 Ondansetron Hcl 4 Mg/2 Ml Vial IVPUSH 01/30/25 08:29 4 mg ONCE ONE Administration Medical Decision Making Medical Decision Making [facility] Narrative: 34-year-old male presents with nausea, vomiting and abdominal pain status post alcohol use. Physical exam patient appears uncomfortable he is rolling around in bed. Tenderness to palpation to epigastric region and right lower quadrant. No peritoneal signs History and physical exam concerning for alcohol intoxication with nausea and vomiting from alcohol poisoning. Will rule out pancreatitis. Unlikely diverticulitis, acute abdomen, cholecystitis. Per patient history he had an appendectomy however when I asked him he says he does not know. Appendicitis less likely. Will rule out metabolic derangements. Plan labs, imaging, urine Differential Diagnosis Differential Diagnoses: The differential diagnosis associated with the presentation includes (History and physical exam concerning for alcohol intoxication with nausea and vomiting from alcohol poisoning. Will rule out pancreatitis. Unlikely diverticulitis, acute abdomen, cholecystitis. Per patient history he had an appendectomy however when I asked him he says he does not know. Appendic) Admission/Observation Consideration of admission/observation: Escalation of care including admission/observation considered Consult Healthcare Provider Management of the patient was discussed with: Learning And Development Coordinator (Surgery ) Lab Data [facility] Lab Attestation statement: I reviewed the patient's lab results. 01/30/25 08:21 01/30/25 08:21 Labs: Lab Results 01/30/25 01/30/25 Range/Units 08:21 14:43 WBC 15.7 H (4.8-10.8) X10*3/uL RBC 5.00 (4.60-5.80) X10*6/uL Hgb 14.8 (14.0-18.0) g/dl Hct 43.4 (42.0-52.0) % MCV 86.8 (80.0-98.0) fL MCH 29.6 (27.0-33.0) pg MCHC 34.1 (31.0-36.0) g/dl RDW 12.0 (11.0-16.0) % Plt Count 252 (160-400) X10*3/uL MPV 10.3 (9.4-12.4) fL Immature Gran % (Auto) 0.3 (0.0-0.4) % Neut % (Auto) 82.8 H (45-73) % Lymph % (Auto) 14.9 L (20-40) % [place] % (Auto) 1.8 L (2-11) % Eos % (Auto) 0.1 (0-4) % Baso % (Auto) 0.1 (0-2) % Lymph # (Auto) 2.4 (1.2-4.9) X10*3/uL [place] # (Auto) 0.3 (0.1-1.2) X10*3/uL Eos # (Auto) 0.0 (0.0-0.4) X10*3/uL Baso # (Auto) 0.0 (0.0-0.2) X10*3/uL Abs Immat Gran (auto) 0.05 H (0.00-0.03) X10*3/uL Absolute Neuts (auto) 13.0 H (2.0-8.3) x10*3/uL Absolute Nucleated RBC 0.000 (0.0-0.012) X10*3/uL Nucleated RBC % (auto) 0.0 (0.0-0.2) /100WBC Sodium 145 (135-145) mmol/L Potassium 3.6 (3.3-5.1) mmol/L Chloride 109 H (96-108) mmol/L Carbon Dioxide 23 (22-29) mmol/L Anion Gap 17 (12-20) BUN 13 (9-16) mg/dL Creatinine 0.74 (0.5-1.4) mg/dL Estim Creat Clear Calc 141.9 Estimated GFR > 60 Random Glucose 117 H (60-115) mg/dL Lactic Acid 0.9 (0.5-2.0) mmol/L Calcium 9.3 (8.4-10.2) mg/dL Total Bilirubin 0.2 (0.0-1.0) mg/dL AST 24 (5-37) U/L ALT 18 (0-40) U/L Alkaline Phosphatase 73 (39-117) U/L Total Protein 8.1 H (6.5-8.0) g/dL Albumin 4.8 (3.5-5.0) g/dL Lipase 29 (8-78) U/L Ethyl Alcohol 104 mg/dL Independent Interpretation I performed an independent interpretation of an: Ultrasound (US no appendix seen, hallbladder sludge ) and CT Scan (1. Enterocolitis. This includes the terminal ileum. No significant diverticular disease. Appendix not visualized correlate clinically. 2. No radiopaque gallstones equivocal gallbladder wall thickening. No biliary dilatation. Normal pancreas. 3. No renal parenchymal disease or evidence of obstructi) Radiology Impression Discussion of test interpretation with radiology: I have reviewed the radiologist's reading. Independent Historian Clinical information obtained from an independent historian. History obtained from or confirmed by: EMS External Record Review External record reviewed: Inpatient record, Office record, Outpatient record, Prior outpatient labs, Prior outpatient radiology, Primary care record and Outside ED record Prescription Management I considered prescription management with: Other (see MAR ) Chronic Conditions Patient?s care impacted by: Other (See HPI) Critical Care Time Critical Care Time Critical Care Time: Yes Total Critical Care Time: 36 Attestation: I attest to this time spent taking care of the patient, obtaining history, physical, reviewing labs, imaging, treatment of patients condition +/- specialist/hospitalist consult +/- procedure Discharge Plan Discharge Clinical Impression: Nausea & vomiting, Abdominal pain, Alcohol intoxication Patient Disposition: Admitted As Inpatient Print Language: Irish
[2025-01-30 09:56] LABS: MANUAL DIFF FLAG NO
[2025-01-30 09:59] LABS: Hematocrit 43.4 % (42.0-52.0); Hemoglobin 14.8 g/dl (14.0-18.0); Imm Gran Abs Auto 0.05 X10*3/uL (0.00-0.03); Imm Gran Pct Auto 0.3 % (0.0-0.4); Lymphocytes Absolute Auto 2.4 X10*3/uL (1.2-4.9); Mean Corpuscular HGB Conc 34.1 g/dl (31.0-36.0); Mean Corpuscular Hemoglobin 29.6 pg (27.0-33.0); Mean Corpuscular Volume 86.8 fL (80.0-98.0); NRBC Abs Auto 0.000 X10*3/uL (0.0-0.012); NRBC Pct Auto 0.0 /100WBC (0.0-0.2); Platelet Count 252 X10*3/uL (160-400); Red Blood Count 5.00 X10*6/uL (4.60-5.80); White Blood Count 15.7 X10*3/uL (4.8-10.8)
[2025-01-30 10:18] LABS: Alanine Aminotransferase 18 U/L (0-40); Albumin Level 4.8 g/dL (3.5-5.0); Anion Gap 17 (12-20); Aspartate Amino Transferase 24 U/L (5-37); Blood Urea Nitrogen 13 mg/dL (9-16); Calcium 9.3 mg/dL (8.4-10.2); Carbon Dioxide 23 mmol/L (22-29); Chloride 109 mmol/L (96-108); Creatinine Clr Calc Pharmacy 141.9; Estimated Glomerular Filt Rate > 60; Lipase 29 U/L (8-78); Potassium 3.6 mmol/L (3.3-5.1); Sodium 145 mmol/L (135-145); Total Protein 8.1 g/dL (6.5-8.0)
[2025-01-30 10:31] LABS: Alkaline Phosphatase 73 U/L (39-117)
[2025-01-30] MEDS: iohexoL 350 MG/ML 100 ML INFUS..BTL IV (10:37)
[2025-01-30] MEDS: Magnesium Hydrox/Alum Hydrox 30 ML ORAL.SUSP 15 ML PO (14:20)
--- NOTE | 2025-01-30 16:15 | ECG_ITS ---
Test Reason : multiple QT prolonging agents Blood Pressure : */* mmHG Vent. Rate : 66 BPM Atrial Rate : 66 BPM P-R Int : 126 ms QRS Dur : 98 ms QT Int : 470 ms P-R-T Axes : 56 -18 6 degrees QTcB Int : 492 ms Normal sinus rhythm Minimal voltage criteria for LVH, may be normal variant ( R in aVL ) Prolonged QT Abnormal ECG When compared with ECG of 20-Jan-2024 11:18, QT has lengthened Referred By: June Ravi Electronically Signed By: Sarath Ortiz
[2025-01-30] MEDS: Lactated Ringers 1,000 ML 100 ML IVCONT (16:40)
--- NOTE | 2025-01-30 16:43 | HO.NURTONUR ---
34 y/o male C.C: N/V and ABD pain since last night, worsening through the morning. Worse in the epigastric and RLQ ABD Endorses alcohol and marijuana use last night, denies hx of withdrawal seizures or DT Admit: enterocolitis, IV ABX Alert and oriented, ambulatory, independent IV: 20G in right hand Meds: LR running at 100 mL/hr Pain: 5/10, just gave morphine and reglan Needs GI consult NPO diet Monitor: NSR, VSS
--- NOTE | 2025-01-30 16:47 | PM.IMHP ---
History of Present Illness Date of Service: 01/30/25 Attending physician on admission: Diana Hernandez Chief Complaint: abd pain Review of Systems Review of Systems: Yes all other systems are reviewed and are negative [facility] Medical History Onychomycosis Family History Mother Cancer Father No problems noted. Brother No problems noted. Sister No problems noted. Maternal Grandmother Leukemia Surgical History History of hand surgery H/O hernia repair Hx of appendectomy H/O lumbar discectomy Social History Household Members: Spouse and Children Housing: House Do you presently have visiting nurse or other home services: No Alcohol intake: current Alcohol intake frequency: a few times a month Alcohol type: beer and wine Patient Tobacco Use Status: Current everyday Tobacco user Tobacco use type: Cigarette Cigarette Packs Per Day: 1 Smoked in Last 30 Days: No e-Cigarette/Vaping Use: Never Used Second Hand Smoke Exposure: No Use of substances other than those prescribed or required for medical reasons: Yes Substance Use Type: Marijuana Advance Directives: No Advance Directives Information Provided: Yes service: No Current occupational status: employed Current occupation: [employer] Current occupational exposures/hazards: No Sexual orientation: Straight/Heterosexual Cognitive needs: No Hearing needs: No Vision needs: No Meds Allergies Allergy/AdvReac Type Severity Reaction Status Date / Time tizanidine Allergy Unknown hives Verified 01/30/25 08:13 Active Medications: Current Medications Acetaminophen (Acetaminophen 325 Mg Tablet) 650 mg PO Q6H PRN PRN Reason: Pain, Mild 1-3,fever,headache Calcium Carbonate (Calcium Carbonate 750 Mg Tab.Chew) 750 mg PO Q4H PRN PRN Reason: Heartburn Enoxaparin Sodium (Enoxaparin Sodium 40 Mg/0.4 Ml Syringe) 40 mg SUBCUT Q24H MONA Piperacillin Sod/Tazobactam (Sod 3.375 gm/ Sodium Chloride) 50 mls @ 100 mls/hr IV Q6H MONA Lactated Ringer's (Lr) 1,000 mls @ 100 mls/hr IVCONT .Q10H [facility] Last Admin: 01/30/25 16:40 Dose: 100 mls/hr Magnesium Hydroxide (Milk Of Magnesia 30 Ml Oral.Susp) 30 ml PO DAILY PRN PRN Reason: Constipation Melatonin (Melatonin 3 Mg Tablet) 6 mg PO BEDTIME PRN PRN Reason: Insomnia Ondansetron HCl (Ondansetron Hcl 4 Mg/2 Ml Vial) 4 mg IVPUSH Q4H PRN PRN Reason: Nausea and Vomiting Pantoprazole Sodium (Pantoprazole Sodium 40 Mg/10 Ml Vial) 40 mg IVPUSH BID [facility] Pharmacy Consult (Consult Rx Etoh Phenob Po Only) 1 each MISCELLANE ONCE PRN; Protocol PRN Reason: Consult order Sodium Chloride (0.9 % Sodium Chloride Flush 3 Ml Syringe) 3 ml IVFLUSH QSHIFT [facility] Physical Exam Vital Signs and Narrative: Vital Signs: Last Vital Signs Temp 99 F 01/30/25 16:27 Pulse 74 01/30/25 16:27 Resp 20 01/30/25 16:27 BP 134/63 01/30/25 16:27 Pulse Ox 98 01/30/25 16:27 O2 Del Method Room Air 01/30/25 16:27 BMI result Body Mass Index 25.1 Appearance: Alert.? Oriented X3.? cvs: rrr, [id number] , no murmur res: clear to auscultation ,no rhonchii or wheezing abd: no rebound or guarding ,most epigastric pain, bs present. ext pulses present , no cyanosis. neuro: axo3 , nonfocal. Results Labs 01/30/25 08:21 01/30/25 08:21 Labs: Laboratory Results - last 24 hr 01/30/25 01/30/25 08:21 14:43 MCV 86.8 MCH 29.6 MCHC 34.1 RDW 12.0 Plt Count 252 MPV 10.3 Immature Gran % (Auto) 0.3 Neut % (Auto) 82.8 H Lymph % (Auto) 14.9 L [place] % (Auto) 1.8 L Eos % (Auto) 0.1 Baso % (Auto) 0.1 Lymph # (Auto) 2.4 [place] # (Auto) 0.3 Eos # (Auto) 0.0 Baso # (Auto) 0.0 Abs Immat Gran (auto) 0.05 H Absolute Neuts (auto) 13.0 H Absolute Nucleated RBC 0.000 Nucleated RBC % (auto) 0.0 Anion Gap 17 Estim Creat Clear Calc 141.9 Estimated GFR > 60 Random Glucose 117 H Lactic Acid 0.9 Calcium 9.3 Total Bilirubin 0.2 AST 24 ALT 18 Alkaline Phosphatase 73 Total Protein 8.1 H Albumin 4.8 Lipase 29 Ethyl Alcohol 104 Assessment and Plan (1) Nausea & vomiting: Qualifiers: Vomiting type: unspecified Qualified Code(s): R11.2 - Nausea with vomiting, unspecified Status: Acute (2) Abdominal pain: Qualifiers: Abdominal location: unspecified location Qualified Code(s): R10.9 - Unspecified abdominal pain Status: Acute Plan 34-year-old male history of alcohol use disorder, PTSD else, opiate use disorder anxiety, depression who presents to the emergency department with severe nausea, vomiting and abdominal pain. says used excessive alcohol and snort cocaine as well as marijuana Intractable nausea vomiting unclear etiology: Could be multifactorial-alcohol/marijuana/cocaine use versus also CT abdomen shows question of enterocolitis Stool studies Bowel rest, IV fluid, Zofran, ppi, pain control with morphine, IV antibiotics, GI evaluation. Patient is unable to take anything p.o. multiple vomiting episodes. GI evaluation Alcohol excessive use-alcohol use disorder? CIWA scale Thiamine folic acid, currently does not seem to be withdrawing but considering excessive alcohol use impending withdrawal, added p.o. phenobarb protocol Monitor on tele Addiction evaluation. DVT prophylaxis: SubQ Lovenox Patient will benefit from 2 midnight stay considering intractable nausea vomiting, multiple drug use as well as enterocolitis-need IV fluid, unable to take p.o., antiemetics IV pain medication as well as possible need of GI workup if does not improve. Above management discussed with the patient detail length he understand and in agreement with the above plan, time spent 70 minute, patient full code. Quality Stroke Does the patient have a stroke diagnosis?: No VTE Prior VTE?: No VTE Risk Level:: Medical - moderate - high VTE Device Contraindication: N/A - Device Ordered VTE Drug Contraindication: N/A - Med Ordered
--- NOTE | 2025-01-30 17:09 | PHA.MEDREC ---
Pharmacy Consult ? Medication Reconciliation Pharmacy has completed the medication reconciliation. Pt states he takes no medications
[2025-01-30] MEDS: Lidocaine 4 % Patch ADH..PATCH 2 PATCH TRANSDERMA (17:57)
[2025-01-30] MEDS: PHENobarbitaL 200 MG PO ONCE PO (18:28)
[2025-01-30] MEDS: Thiamine HCL 100 MG in 0.9 % Sodium Chloride 100 ML 202 MG IV (20:06)
[2025-01-30] MEDS: 0.9 % Sodium Chloride Flush 3 ML SYRINGE IVFLUSH (20:07)
--- NOTE | 2025-01-30 20:22 | PC.NURSE ---
upon assessment pt very drowsy but arousable and vital signs stable. 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
[2025-01-30 23:42] LABS: Glucose, Whole Blood 90 mg/dL (60-115)
[2025-01-31 00:32] LABS: Cannabinoid Screen Urine POSITIVE (Not Detect)
[2025-01-31 03:31] VITALS: BP 133/63; PULSE 66; RESP 14; TEMP 37.1; O2SAT 97
[2025-01-31] MEDS: Lactated Ringers 1,000 ML 100 ML IVCONT ×2 (04:05→21:27)
[2025-01-31 08:00] VITALS: BP 121/71; PULSE 70; RESP 18; TEMP 36.4; O2SAT 98
--- NOTE | 2025-01-31 08:17 | P.PNIM_ITS ---
Subjective Subjective Date of Service: 01/31/25 Interval History: intractable nausea/vomiting Review of Systems Review of Systems: Yes all other systems are reviewed and are negative Physical Exam 2 Vital Signs: Vital Signs: Last Vital Signs Temp 97.5 F 01/31/25 08:00 Pulse 70 01/31/25 08:00 Resp 18 01/31/25 08:00 BP 121/71 01/31/25 08:00 Pulse Ox 98 01/31/25 08:00 O2 Del Method Room Air 01/31/25 08:00 BMI result Body Mass Index 25.8 Objective Data Active Medications Acetaminophen (Acetaminophen 325 Mg Tablet) 650 mg PO Q6H PRN PRN Reason: Pain, Mild 1-3,fever,headache Calcium Carbonate (Calcium Carbonate 750 Mg Tab.Chew) 750 mg PO Q4H PRN PRN Reason: Heartburn Capsaicin (Capsaicin 0.025% Cream 60 Gm Tube) 1 appl TOPICAL QID PRN; Protocol PRN Reason: Pain, Severe (Pain Scale 7-10) Enoxaparin Sodium (Enoxaparin Sodium 40 Mg/0.4 Ml Syringe) 40 mg SUBCUT Q24H [facility] Last Admin: 01/30/25 17:58 Dose: 40 mg Documented By: ZAIRE Piperacillin Sod/Tazobactam (Sod 3.375 gm/ Sodium Chloride) 50 mls @ 100 mls/hr IV Q6H [facility] Last Infusion: 01/31/25 04:43 Dose: Infused Documented By: ANETA Lactated Ringer's (Lr) 1,000 mls @ 100 mls/hr IVCONT .Q10H [facility] Last Infusion: 01/31/25 04:43 Dose: 100 mls/hr Documented By: ANETA Folic Acid 1 mg/ Sodium (Chloride) 50.2 mls @ 100.4 mls/hr IV DAILY [facility] Last Infusion: 01/30/25 18:43 Dose: Infused Documented By: ZAIRE Thiamine HCl 100 mg/ Sodium (Chloride) 101 mls @ 202 mls/hr IV BID [facility] Last Infusion: 01/30/25 20:50 Dose: Infused Documented By: ANETA Lidocaine (Lidocaine 4 % Patch Adh..Patch) 2 patch TRANSDERMA DAILY [facility]; Protocol Last Admin: 01/30/25 17:57 Dose: 2 patch Documented By: ZAIRE Magnesium Hydroxide (Milk Of Magnesia 30 Ml Oral.Susp) 30 ml PO DAILY PRN PRN Reason: Constipation Melatonin (Melatonin 3 Mg Tablet) 6 mg PO BEDTIME PRN PRN Reason: Insomnia Morphine Sulfate (Morphine Sulfate 4 Mg/Ml Cartridge) 2 mg IVPUSH Q4H PRN; Protocol PRN Reason: Pain, Severe (Pain Scale 7-10) Ondansetron HCl (Ondansetron Hcl 4 Mg/2 Ml Vial) 4 mg IVPUSH Q4H PRN PRN Reason: Nausea and Vomiting Pantoprazole Sodium (Pantoprazole Sodium 40 Mg/10 Ml Vial) 40 mg IVPUSH BID [facility] Last Admin: 01/30/25 20:07 Dose: 40 mg Documented By: ANETA Pharmacy Consult (Consult Rx Etoh Phenob Po Only) 1 each MISCELLANE ONCE PRN; Protocol PRN Reason: Consult order Phenobarbital (Phenobarbital 15 Mg Tablet) 45 mg PO BID [facility] Stop: 02/01/25 21:01 Phenobarbital (Phenobarbital 30 Mg Tablet) 30 mg PO BID [facility] Stop: 02/03/25 21:01 Phenobarbital (Phenobarbital 15 Mg Tablet) 15 mg PO DAILY [facility] Stop: 02/05/25 09:01 Sodium Chloride (0.9 % Sodium Chloride Flush 3 Ml Syringe) 3 ml IVFLUSH QSHIFT [facility] Last Admin: 01/31/25 07:21 Dose: Not Given Documented By: ZAIRE Non-Admin Reason: IV Running Labs 01/30/25 08:21 01/30/25 08:21 Labs: Laboratory Results - last 24 hr 01/30/25 01/30/25 01/30/25 08:21 14:43 23:38 MCV 86.8 MCH 29.6 MCHC 34.1 RDW 12.0 Plt Count 252 MPV 10.3 Immature Gran % (Auto) 0.3 Neut % (Auto) 82.8 H Lymph % (Auto) 14.9 L [place] % (Auto) 1.8 L Eos % (Auto) 0.1 Baso % (Auto) 0.1 Lymph # (Auto) 2.4 [place] # (Auto) 0.3 Eos # (Auto) 0.0 Baso # (Auto) 0.0 Abs Immat Gran (auto) 0.05 H Absolute Neuts (auto) 13.0 H Absolute Nucleated RBC 0.000 Nucleated RBC % (auto) 0.0 ESR 4 Anion Gap 17 Estim Creat Clear Calc 141.9 Estimated GFR > 60 POC Glucose 90 Random Glucose 117 H Lactic Acid 0.9 Calcium 9.3 Total Bilirubin 0.2 AST 24 ALT 18 Alkaline Phosphatase 73 C-Reactive Protein < 0.10 Total Protein 8.1 H Albumin 4.8 Lipase 29 Urine Opiates Screen Ur Buprenorphine Scrn Ur Oxycodone Screen Urine Methadone Screen Urine Fentanyl Screen Ur Barbiturates Screen Ur Phencyclidine Scrn Ur Amphetamines Screen U Benzodiazepines Scrn Urine Cocaine Screen U Marijuana (THC) Screen Ethyl Alcohol 104 01/30/25 23:52 MCV MCH MCHC RDW Plt Count MPV Immature Gran % (Auto) Neut % (Auto) Lymph % (Auto) [place] % (Auto) Eos % (Auto) Baso % (Auto) Lymph # (Auto) [place] # (Auto) Eos # (Auto) Baso # (Auto) Abs Immat Gran (auto) Absolute Neuts (auto) Absolute Nucleated RBC Nucleated RBC % (auto) ESR Anion Gap Estim Creat Clear Calc Estimated GFR POC Glucose Random Glucose Lactic Acid Calcium Total Bilirubin AST ALT Alkaline Phosphatase C-Reactive Protein Total Protein Albumin Lipase Urine Opiates Screen POSITIVE H Ur Buprenorphine Scrn Positive H Ur Oxycodone Screen Positive H Urine Methadone Screen Not Detected Urine Fentanyl Screen Not Detected Ur Barbiturates Screen POSITIVE H Ur Phencyclidine Scrn Not Detected Ur Amphetamines Screen Not Detected U Benzodiazepines Scrn Not Detected Urine Cocaine Screen POSITIVE H U Marijuana (THC) Screen POSITIVE H Ethyl Alcohol Assessment and Plan (1) Nausea & vomiting: Status: Acute Plan 34-year-old male history of alcohol use disorder, PTSD else, opiate use disorder anxiety, depression who presents to the emergency department with severe nausea, vomiting and abdominal pain. says used excessive alcohol and snort cocaine as well as marijuana Intractable nausea vomiting unclear etiology: Could be multifactorial- alcohol/marijuana/cocaine use versus also CT abdomen shows question of enterocolitis Stool studies Bowel rest, IV fluid, Zofran, ppi, pain control with morphine, IV antibiotics, GI evaluation. Patient is unable to take anything p.o. multiple vomiting episodes. GI evaluation Alcohol excessive use-alcohol use disorder? CIWA scale Thiamine folic acid, currently does not seem to be withdrawing but considering excessive alcohol use impending withdrawal, added p.o. phenobarb protocol Monitor on tele Addiction evaluation. DVT prophylaxis: SubQ Lovenox ongoing need stay considering intractable nausea vomiting, multiple drug use as well as enterocolitis-need IV fluid, unable to take p.o., antiemetics IV pain medication as well as possible need of GI workup if does not improve. Quality Stroke Does the patient have a stroke diagnosis?: No VTE Prior VTE?: No VTE Risk Level:: Medical - moderate - high VTE Device Contraindication: N/A - Device Ordered VTE Drug Contraindication: N/A - Med Ordered
--- NOTE | 2025-01-31 08:38 | P.CNGI_ITS ---
History of Present Illness Data of Consult Service Date: 01/31/25 Primary Care Provider: Holly Hatch MD HPI Reason for consult: enterocolitis 34y/o male with pmhx alcohol use disorder, PTSD, opiate use disorder anxiety, depression who I am seeing for assessment for enterocolitis he presents with severe nausea, vomiting and 10/10 epigastric pain, worse with food, and seems to have started after drinking excessive alcohol as well as using cocaine and marijuana. He denies diarrhea, constipation, melena or rectal bleeding. No sick contacts or ingestion of poorly cooked meats or foods. Denies changes in urinary or bowel habits denies fevers, chills, headache, vision changes, chest pain and shortness of breath. denies nsaid use. CT imaging with report of enterocolitis. Today he feels much improved and is hungry and wants to advance his diet. Review of Systems 2 Review of Systems: Constitutional : No Weight loss, No Fever, No Chills ENT/Mouth : No sore throat, No Rhinorrhea Eyes: No Swelling, No Redness Cardiovascular : No Chest Pain, No SOB, No Edema Respiratory : No Cough, No Sputum, No Wheezing Gastrointestinal : see HPI Genitourinary : NO Dysuria, No Urinary Frequency, No Hematuria, No Urgency Musculoskeletal : no joint pain, No Myalgias, No Joint Swelling Skin : No Skin Lesions, No rash Neuro : No Weakness, No Numbness, No Dizziness, No Headache Psych : No Anxiety/Panic, No Depression Heme/Lymph: No Bruising, No Lymphadenopathy Endocrine : No Polyuria, No Polydipsia All other systems reviewed and are negative. [facility] Past Medical History Medical History Onychomycosis Family History Family History Mother Cancer Father No problems noted. Brother No problems noted. Sister No problems noted. Maternal Grandmother Leukemia Surgical History Surgical History History of hand surgery H/O hernia repair Hx of appendectomy H/O lumbar discectomy Social History Social History Household Members: Children Housing: Apartment Do you presently have visiting nurse or other home services: No Alcohol intake: current Alcohol intake frequency: a few times a month Alcohol type: beer and wine Patient Tobacco Use Status: Current everyday Tobacco user Tobacco use type: Cigarette Cigarette Packs Per Day: 1 Cigarettes Per Day: 20.0 e-Cigarette/Vaping Use: Never Used Second Hand Smoke Exposure: No Substance Use Type: Marijuana service: No Current occupational status: employed 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 Current occupational exposures/hazards: No Sexual orientation: Straight/Heterosexual Cognitive needs: No Hearing needs: No Vision needs: No Meds Allergies Allergy/AdvReac Type Severity Reaction Status Date / Time tizanidine Allergy Unknown hives Verified 01/30/25 08:13 Active Medications: Current Medications Acetaminophen (Acetaminophen 325 Mg Tablet) 650 mg PO Q6H PRN PRN Reason: Pain, Mild 1-3,fever,headache Calcium Carbonate (Calcium Carbonate 750 Mg Tab.Chew) 750 mg PO Q4H PRN PRN Reason: Heartburn Capsaicin (Capsaicin 0.025% Cream 60 Gm Tube) 1 appl TOPICAL QID PRN; Protocol PRN Reason: Pain, Severe (Pain Scale 7-10) Enoxaparin Sodium (Enoxaparin Sodium 40 Mg/0.4 Ml Syringe) 40 mg SUBCUT Q24H [facility] Last Admin: 01/30/25 17:58 Dose: 40 mg Piperacillin Sod/Tazobactam (Sod 3.375 gm/ Sodium Chloride) 50 mls @ 100 mls/hr IV Q6H [facility] Last Infusion: 01/31/25 04:43 Dose: Infused Lactated Ringer's (Lr) 1,000 mls @ 100 mls/hr IVCONT .Q10H [facility] Last Infusion: 01/31/25 04:43 Dose: 100 mls/hr Folic Acid 1 mg/ Sodium (Chloride) 50.2 mls @ 100.4 mls/hr IV DAILY [facility] Last Infusion: 01/30/25 18:43 Dose: Infused Thiamine HCl 100 mg/ Sodium (Chloride) 101 mls @ 202 mls/hr IV BID [facility] Last Infusion: 01/30/25 20:50 Dose: Infused Lidocaine (Lidocaine 4 % Patch Adh..Patch) 2 patch TRANSDERMA DAILY [facility]; Protocol Last Admin: 01/30/25 17:57 Dose: 2 patch Magnesium Hydroxide (Milk Of Magnesia 30 Ml Oral.Susp) 30 ml PO DAILY PRN PRN Reason: Constipation Melatonin (Melatonin 3 Mg Tablet) 6 mg PO BEDTIME PRN PRN Reason: Insomnia Morphine Sulfate (Morphine Sulfate 4 Mg/Ml Cartridge) 2 mg IVPUSH Q4H PRN; Protocol PRN Reason: Pain, Severe (Pain Scale 7-10) Ondansetron HCl (Ondansetron Hcl 4 Mg/2 Ml Vial) 4 mg IVPUSH Q4H PRN PRN Reason: Nausea and Vomiting Pantoprazole Sodium (Pantoprazole Sodium 40 Mg/10 Ml Vial) 40 mg IVPUSH BID [facility] Last Admin: 01/30/25 20:07 Dose: 40 mg Pharmacy Consult (Consult Rx Etoh Phenob Po Only) 1 each MISCELLANE ONCE PRN; Protocol PRN Reason: Consult order Phenobarbital (Phenobarbital 15 Mg Tablet) 45 mg PO BID [facility] Stop: 02/01/25 21:01 Phenobarbital (Phenobarbital 30 Mg Tablet) 30 mg PO BID [facility] Stop: 02/03/25 21:01 Phenobarbital (Phenobarbital 15 Mg Tablet) 15 mg PO DAILY [facility] Stop: 02/05/25 09:01 Sodium Chloride (0.9 % Sodium Chloride Flush 3 Ml Syringe) 3 ml IVFLUSH QSHIFT [facility] Last Admin: 01/31/25 07:21 Dose: Not Given Physical Exam 2 Exam: Exam: EXAM: GENERAL: The patient is well developed and nontoxic. VITAL SIGNS:see workflow HEENT: Nonicteric sclerae, PERRLA, EOMI. Oropharynx clear. Moist mucous membranes. Conjunctivae appear well perfused. No thyroid mass. CHEST: Chest wall is nontender. HEART: Regular rate and rhythm without murmurs. LUNGS: Clear to auscultation bilaterally. ABDOMEN: Soft, positive bowel sounds, nontender, no organomegaly.no flank tenderness SKIN: No rash, no excessive bruising, petechiae, or purpura. NEUROLOGIC: Cranial nerves II-XII intact without motor/sensory deficit. Psych: normal affect Vital Signs: Vital Signs: Last Vital Signs Temp 97.5 F 01/31/25 08:00 Pulse 70 01/31/25 08:00 Resp 18 01/31/25 08:00 BP 121/71 01/31/25 08:00 Pulse Ox 98 01/31/25 08:00 O2 Del Method Room Air 01/31/25 08:00 BMI result Body Mass Index 25.8 Results Labs 01/31/25 09:46 01/31/25 09:46 Labs: Short CBC 01/30/25 Range/Units 08:21 WBC 15.7 H (4.8-10.8) X10*3/uL Hgb 14.8 (14.0-18.0) g/dl Hct 43.4 (42.0-52.0) % Plt Count 252 (160-400) X10*3/uL BMP 01/30/25 08:21 Sodium 145 Potassium 3.6 Chloride 109 H Carbon Dioxide 23 BUN 13 Creatinine 0.74 Calcium 9.3 Liver Function 01/30/25 Range/Units 08:21 Total Bilirubin 0.2 (0.0-1.0) mg/dL AST 24 (5-37) U/L ALT 18 (0-40) U/L Alkaline Phosphatase 73 (39-117) U/L Albumin 4.8 (3.5-5.0) g/dL Imaging CT scan - abdomen: Attestation: I personally reviewed and interpreted this imaging study as follows: (thickened stomach lining, minimal thickening colon ) Assessment and Plan (1) Nausea & vomiting: Qualifiers: Vomiting type: unspecified Qualified Code(s): R11.2 - Nausea with vomiting, unspecified Status: Acute Plan 1/ Acute n/v and epigastric pain, suspect this is alcohol gastritis he is feeling improving now PLAN: 1/ Cont with PPI 2/ alcohol and cocaine abstinence 3/ if he has diarrhea can send for GI stool PCR to r/o infectious gastroenteritis Procedures Date of Service Date of Service: 01/31/25
[2025-01-31] MEDS: Thiamine HCL 100 MG in 0.9 % Sodium Chloride 100 ML 202 MG IV ×2 (08:51→20:28)
[2025-01-31 10:00] LABS: Hematocrit 39.2 % (42.0-52.0); Hemoglobin 13.6 g/dl (14.0-18.0); Mean Corpuscular HGB Conc 34.7 g/dl (31.0-36.0); Mean Corpuscular Hemoglobin 29.7 pg (27.0-33.0); Mean Corpuscular Volume 85.6 fL (80.0-98.0); NRBC Abs Auto 0.000 X10*3/uL (0.0-0.012); NRBC Pct Auto 0.0 /100WBC (0.0-0.2); Platelet Count 214 X10*3/uL (160-400); Red Blood Count 4.58 X10*6/uL (4.60-5.80); White Blood Count 9.5 X10*3/uL (4.8-10.8)
[2025-01-31 10:16] LABS: Anion Gap 13 (12-20); Blood Urea Nitrogen 15 mg/dL (9-16); Calcium 8.8 mg/dL (8.4-10.2); Carbon Dioxide 27 mmol/L (22-29); Chloride 105 mmol/L (96-108); Creatinine Clr Calc Pharmacy 112.9; Estimated Glomerular Filt Rate > 60; Potassium 3.7 mmol/L (3.3-5.1); Sodium 141 mmol/L (135-145)
--- NOTE | 2025-01-31 10:31 | MHC.CM.PN ---
PT LIVES WITH FAMILY HAS OWN RIDE HOME EXPETED TO BE SEEN BY ADDICTION MEDICINE PRIOR TO DC
[2025-01-31 11:27] LABS: CDiff Gene PCR NEGATIVE (Negative)
--- NOTE | 2025-01-31 12:13 | P.DS_ITS ---
DS: Providers Provider Date of Service: 01/31/25 Date of admission: 01/30/25 16:24 Date of discharge: 01/31/25 Primary care physician: oHlly Hatch MD Consults: 01/30/25 16:58 Addiction Medicine Provider Routine Consulting Provider: Addiction Covering Reason for consultation: alcohol withdrawal Has provider been notified: No Consult to Gastroenterology [place]ine [place]ing [place] [facility] [place] [facility] Reason for consultation: eneterocolitis Attending physician on discharge: Diana Hernandez Discharging clinician: Diana Hernandez DS: Diagnosis Discharge Diagnosis (1) Nausea & vomiting: Status: Acute DS: Summary Hospital Course Hospital Course: HPI:34y/o F with pmhx alcohol use disorder, PTSD else, opiate use disorder anxiety, depression came with severe nausea, vomiting and abdominal pain, Worse in the epigastric region . He states that the abdominal pain and nausea vomiting started after drinking excessive alcohol as well as he was using cocaine and marijuana. Initially Reports pain is severe 10/10. Denies vomiting blood. Most patient's pain is my own my evaluation in the upper epigastric area, he told that he had appendectomy in the past. He received multiple pain medications as well antiemetic in the ED and now feeling slightly improving. Denies changes in urinary or bowel habits denies fevers, chills, headache, vision changes, chest pain and shortness of breath. He does report he drank a lot of Tequila last night. He also endorses marijuana use. Lab imaging reviewed: WBC count 15.7, chemistry seems fine, lactic acid 0.9 CTA abdomen:1. Enterocolitis. This includes the terminal ileum. No significant diverticular disease. Appendix not visualized correlate clinically. 2. No radiopaque gallstones equivocal gallbladder wall thickening. No biliary dilatation. Normal pancreas. 3. No renal parenchymal disease or evidence of obstructive uropathy. Hospital course: Patient was admitted for nausea vomiting: Urine drug screen positive for cocaine, marijuana, also CT abdomen showed enterocolitis: Patient was started on IV antibiotics and hydration and antiemetics patient seems to be improved significantly. C diff negative, GI P panel pending. Blood culture also pending. Patient tolerating diet Discussed with GI-likely component of gastritis versus enterocolitis. Patient seems to be improved significantly with the above supportive care. Patient will go home on p.o. omeprazole and Augmentin 875 mg p.o. b.i.d. for 5 more days. Patient is currently not interested in waiting for addiction, strongly advised to abstain from cocaine/alcohol use /marijuana/recreation drug use. Patient is to follow-up out patiently with PCP as well as Dr. Pleitez 's office. plan: Omeprazole 20 mg daily Augmentin 875 mg p.o. b.i.d. for 5 days Patient is currently not interested in waiting for addiction, strongly advised to abstain from cocaine/alcohol use /marijuana/recreation drug use. Patient is to follow-up out patiently with PCP as well as Dr. Pleitez 's office. Above management discussed with the patient in detail length he understand and in agreement with the above plan, time spent 50 minute. All questions answered. Time Attestation Total time managing care of this patient today: 50 mintues. Discharge Coordination Time (in mins): 50 min Quality: Safe Use of Opioids Does Pt have an Active Cancer Diagnosis on the Problem List?: No Quality: Stroke Does the patient have a stroke diagnosis?: No Physical Exam Exam: Exam: Appearance: Alert.? Oriented X3.? cvs: rrr, [id number] , no murmur res: clear to auscultation ,no rhonchii or wheezing abd: no rebound or guarding ,most epigastric pain, bs present. ext pulses present , no cyanosis. neuro: axo3 , nonfocal. Vital Signs: Vital Signs: Last Vital Signs Temp 97.5 F 01/31/25 08:00 Pulse 70 01/31/25 08:00 Resp 18 01/31/25 08:00 BP 121/71 01/31/25 08:00 Pulse Ox 98 01/31/25 08:00 O2 Del Method Room Air 01/31/25 08:00 BMI result Body Mass Index 25.8 DS: Data Data Completed and Pending Labs on day of discharge: Laboratory Results - last 24 hr 01/30/25 01/30/25 01/30/25 08:21 14:43 23:38 WBC 15.7 H RBC 5.00 Hgb 14.8 Hct 43.4 MCV 86.8 MCH 29.6 MCHC 34.1 RDW 12.0 Plt Count 252 MPV 10.3 Immature Gran % (Auto) 0.3 Neut % (Auto) 82.8 H Lymph % (Auto) 14.9 L [place] % (Auto) 1.8 L Eos % (Auto) 0.1 Baso % (Auto) 0.1 Lymph # (Auto) 2.4 [place] # (Auto) 0.3 Eos # (Auto) 0.0 Baso # (Auto) 0.0 Abs Immat Gran (auto) 0.05 H Absolute Neuts (auto) 13.0 H Absolute Nucleated RBC 0.000 Nucleated RBC % (auto) 0.0 ESR 4 Sodium 145 Potassium 3.6 Chloride 109 H Carbon Dioxide 23 Anion Gap 17 BUN 13 Creatinine 0.74 Estim Creat Clear Calc 141.9 Estimated GFR > 60 POC Glucose 90 Random Glucose 117 H Lactic Acid 0.9 Calcium 9.3 Total Bilirubin 0.2 AST 24 ALT 18 Alkaline Phosphatase 73 C-Reactive Protein < 0.10 Total Protein 8.1 H Albumin 4.8 Lipase 29 Urine Opiates Screen Ur Buprenorphine Scrn Ur Oxycodone Screen Urine Methadone Screen Urine Fentanyl Screen Ur Barbiturates Screen Ur Phencyclidine Scrn Ur Amphetamines Screen U Benzodiazepines Scrn Urine Cocaine Screen U Marijuana (THC) Screen Ethyl Alcohol 104 C. difficile Tox B Gene 01/30/25 01/31/25 01/31/25 23:52 09:46 10:11 WBC 9.5 RBC 4.58 L Hgb 13.6 L Hct 39.2 L MCV 85.6 MCH 29.7 MCHC 34.7 RDW 11.9 Plt Count 214 MPV 9.5 Immature Gran % (Auto) Neut % (Auto) Lymph % (Auto) [place] % (Auto) Eos % (Auto) Baso % (Auto) Lymph # (Auto) [place] # (Auto) Eos # (Auto) Baso # (Auto) Abs Immat Gran (auto) Absolute Neuts (auto) Absolute Nucleated RBC 0.000 Nucleated RBC % (auto) 0.0 ESR Sodium 141 Potassium 3.7 Chloride 105 Carbon Dioxide 27 Anion Gap 13 BUN 15 Creatinine 0.93 Estim Creat Clear Calc 112.9 Estimated GFR > 60 POC Glucose Random Glucose 91 Lactic Acid Calcium 8.8 Total Bilirubin AST ALT Alkaline Phosphatase C-Reactive Protein Total Protein Albumin Lipase Urine Opiates Screen POSITIVE H Ur Buprenorphine Scrn Positive H Ur Oxycodone Screen Positive H Urine Methadone Screen Not Detected Urine Fentanyl Screen Not Detected Ur Barbiturates Screen POSITIVE H Ur Phencyclidine Scrn Not Detected Ur Amphetamines Screen Not Detected U Benzodiazepines Scrn Not Detected Urine Cocaine Screen POSITIVE H U Marijuana (THC) Screen POSITIVE H Ethyl Alcohol C. difficile Tox B Gene NEGATIVE Discharge Plan Discharge Anticipated Discharge Date/Time: 01/31/25 12:01 Patient Disposition: Home, Self-Care Discharge Diagnosis: ? enteroclitis , alcohol intoxication , possible gastritis Referrals: [facility] [Provider Group, Addiction Medicine] - 02/09/25 10:00 am Referral Note: Please attend your appointment on SaturdayFebruary 09 @10:00 AM for your intake. Holly Munoz MD [Physician, Internal Medicine] - 1 Week Discharge Medications: New amoxicillin-pot clavulanate 875-125 mg Tablet 1 tab PO BID Qty: 10 0RF folic acid 1 mg tablet 1 mg PO DAILY Qty: 30 0RF thiamine HCl (vitamin B1) 100 mg capsule 100 mg PO DAILY Qty: 30 0RF omeprazole 20 mg capsule,delayed release(DR/EC) 20 mg PO DAILY Qty: 90 0RF buprenorphine-naloxone [Suboxone] 8-2 mg film 1 film buccal DAILY Qty: 10 0RF naloxone [Narcan] 4 mg/actuation spray,non-aerosol 4 mg intranasal Q2M PRN (Reason: opioid overdose) Qty: 2 0RF Rx Instructions: spray 1 dose into ONE nostril; alternate nostrils w each dose until help arrives Discharge Orders: Discharge Order (Routine); Ordered 02/02/25 Ordered By: Diana Hernandez Diet: Advance to usual diet Activity on Discharge: As tolerated Stand Alone Forms: Patient Portal Discharge page Print Language: B[place] Care Plan Goals: as below. Health Concerns: Omeprazole 20 mg daily Augmentin 875 mg p.o. b.i.d. for 5 days Patient is currently not interested in waiting for addiction, strongly advised to abstain from cocaine/alcohol use /marijuana/recreation drug use. Patient is to follow-up out patiently with PCP as well as Dr. Pleitez 's office. Plan of Treatment: As above. Assessment: As above. Discharge Date/Time: 02/02/25 08:48
[2025-01-31 13:00] LABS: E. coli EAEC Not Detected (Not Detect.); E. coli EPEC Not Detected (Not Detect.); E. coli ETEC Not Detected (Not Detect.); E. coli STEC Not Detected (Not Detect.); Shigella sp./EIEC Not Detected (Not Detect.)
[2025-01-31] MEDS: Lactated Ringers 1,000 ML 150 ML IVCONT (14:11)
--- NOTE | 2025-01-31 14:42 | MHC.CM.PN ---
PT DCD HOME SELF CARE
--- NOTE | 2025-01-31 14:54 | HO.PM.IMPN ---
Subjective Subjective Date of Service: 01/31/25 Interval History: Enterocolitis Review of Systems Patient is still unable to tolerate p.o., vomited to hold his meal Still feel nauseated Review of Systems: Yes all other systems are reviewed and are negative Physical Exam Exam: Exam: Appearance: Alert.? Oriented X3.? cvs: rrr, [id number] , no murmur res: clear to auscultation ,no rhonchii or wheezing abd: no rebound or guarding ,most epigastric pain, bs present. ext pulses present , no cyanosis. neuro: axo3 , nonfocal. Vital Signs: Vital Signs: Last Vital Signs Temp 97.5 F 01/31/25 08:00 Pulse 70 01/31/25 08:00 Resp 18 01/31/25 08:00 BP 121/71 01/31/25 08:00 Pulse Ox 98 01/31/25 08:00 O2 Del Method Room Air 01/31/25 08:00 BMI result Body Mass Index 25.8 Objective Data Active Medications Acetaminophen (Acetaminophen 325 Mg Tablet) 650 mg PO Q6H PRN PRN Reason: Pain, Mild 1-3,fever,headache Amoxicillin/Clavulanate Potassium (Amoxicillin/Potassium Clav 875 Mg Tablet) [address] [facility] Last Admin: 01/31/25 12:36 Dose: 875 mg Documented By: ZAIRE Calcium Carbonate (Calcium Carbonate 750 Mg Tab.Chew) 750 mg PO Q4H PRN PRN Reason: Heartburn Capsaicin (Capsaicin 0.025% Cream 60 Gm Tube) 1 appl TOPICAL QID PRN; Protocol PRN Reason: Pain, Severe (Pain Scale 7-10) Enoxaparin Sodium (Enoxaparin Sodium 40 Mg/0.4 Ml Syringe) [address] [facility] Last Admin: 01/30/25 17:58 Dose: 40 mg Documented By: ZAIRE Folic Acid 1 mg/ Sodium (Chloride) 50.2 mls @ 100.4 mls/hr IV DAILY [facility] Last Infusion: 01/31/25 11:16 Dose: Infused Documented By: ZAIRE Thiamine HCl 100 mg/ Sodium (Chloride) 101 mls @ 202 mls/hr IV BID [facility] Last Infusion: 01/31/25 09:21 Dose: Infused Documented By: ZAIRE Lactated Ringer's (Lr) 1,000 mls @ 150 mls/hr IVCONT .Q6H40M [facility] Last Admin: 01/31/25 14:11 Dose: 150 mls/hr Documented By: ZAIRE Piperacillin Sod/Tazobactam (Sod 3.375 gm/ Sodium Chloride) 50 mls @ 100 mls/hr IV Q6H [facility] Lidocaine (Lidocaine 4 % Patch Adh..Patch) [address] [facility]; Protocol Last Admin: 01/31/25 08:54 Dose: Not Given Documented By: ZAIRE Non-Admin Reason: Patient Refused Magnesium Hydroxide (Milk Of Magnesia 30 Ml Oral.Susp) 30 ml PO DAILY PRN PRN Reason: Constipation Melatonin (Melatonin 3 Mg Tablet) 6 mg PO BEDTIME PRN PRN Reason: Insomnia Morphine Sulfate (Morphine Sulfate 4 Mg/Ml Cartridge) 2 mg IVPUSH Q4H PRN; Protocol PRN Reason: Pain, Severe (Pain Scale 7-10) Ondansetron HCl (Ondansetron Hcl 4 Mg/2 Ml Vial) 4 mg IVPUSH Q4H PRN PRN Reason: Nausea and Vomiting Last Admin: 01/31/25 13:44 Dose: 4 mg Documented By: ZAIRE Pantoprazole Sodium (Pantoprazole Sodium 40 Mg/10 Ml Vial) [address] [facility] Last Admin: 01/31/25 08:49 Dose: 40 mg Documented By: ZAIRE Pharmacy Consult (Consult Rx Etoh Phenob Po Only) 1 each MISCELLANE ONCE PRN; Protocol PRN Reason: Consult order Phenobarbital (Phenobarbital 15 Mg Tablet) [address] [facility] Stop: 02/01/25 21:01 Last Admin: 01/31/25 08:47 Dose: 45 mg Documented By: ZAIRE Phenobarbital (Phenobarbital 30 Mg Tablet) [address] [facility] Stop: 02/03/25 21:01 Phenobarbital (Phenobarbital 15 Mg Tablet) [address] [facility] Stop: 02/05/25 09:01 Sodium Chloride (0.9 % Sodium Chloride Flush 3 Ml Syringe) [address] [facility] Last Admin: 01/31/25 07:21 Dose: Not Given Documented By: ZAIRE Non-Admin Reason: IV Running Labs 01/31/25 09:46 01/31/25 09:46 Labs: Laboratory Results - last 24 hr 01/30/25 01/30/25 01/30/25 08:21 14:43 23:38 MCV 86.8 MCH 29.6 MCHC 34.1 RDW 12.0 Plt Count 252 MPV 10.3 Immature Gran % (Auto) 0.3 Neut % (Auto) 82.8 H Lymph % (Auto) 14.9 L [place] % (Auto) 1.8 L Eos % (Auto) 0.1 Baso % (Auto) 0.1 Lymph # (Auto) 2.4 [place] # (Auto) 0.3 Eos # (Auto) 0.0 Baso # (Auto) 0.0 Abs Immat Gran (auto) 0.05 H Absolute Neuts (auto) 13.0 H Absolute Nucleated RBC 0.000 Nucleated RBC % (auto) 0.0 ESR 4 Anion Gap 17 Estim Creat Clear Calc 141.9 Estimated GFR > 60 POC Glucose 90 Random Glucose 117 H Lactic Acid 0.9 Calcium 9.3 Total Bilirubin 0.2 AST 24 ALT 18 Alkaline Phosphatase 73 C-Reactive Protein < 0.10 Total Protein 8.1 H Albumin 4.8 Lipase 29 Stl C. cayetanensis PCR Stool Rotavirus A PCR Stl Adenov F 40/41 PCR Stool Astrovirus (PCR) Stool Campylobacter PCR Stool Cryptosporidium PCR Stl Sh Tox Pr E STEC PCR Stool E coli O157 PCR Stl Enterotoxigenic E PCR Stool EPEC (PCR) Stool EAEC (PCR) Stl E. histolytica PCR Stool Giardia Lamblia PCR Stl P. shigelloides PCR Stool Salmonella PCR Stool Sapovirus (PCR) Stl Shigella/EIEC PCR St Y.enterocolitica PCR Stool Vibrio (PCR) Stl Vibrio cholerae PCR Stl Norovirus GI/GII PCR Urine Opiates Screen Ur Buprenorphine Scrn Ur Oxycodone Screen Urine Methadone Screen Urine Fentanyl Screen Ur Barbiturates Screen Ur Phencyclidine Scrn Ur Amphetamines Screen U Benzodiazepines Scrn Urine Cocaine Screen U Marijuana (THC) Screen Ethyl Alcohol 104 C. difficile Tox B Gene 01/30/25 01/31/25 01/31/25 23:52 09:46 10:11 MCV 85.6 MCH 29.7 MCHC 34.7 RDW 11.9 Plt Count 214 MPV 9.5 Immature Gran % (Auto) Neut % (Auto) Lymph % (Auto) [place] % (Auto) Eos % (Auto) Baso % (Auto) Lymph # (Auto) [place] # (Auto) Eos # (Auto) Baso # (Auto) Abs Immat Gran (auto) Absolute Neuts (auto) Absolute Nucleated RBC 0.000 Nucleated RBC % (auto) 0.0 ESR Anion Gap 13 Estim Creat Clear Calc 112.9 Estimated GFR > 60 POC Glucose Random Glucose 91 Lactic Acid Calcium 8.8 Total Bilirubin AST ALT Alkaline Phosphatase C-Reactive Protein Total Protein Albumin Lipase Stl C. cayetanensis PCR Not Detected Stool Rotavirus A PCR Not Detected Stl Adenov F 40/41 PCR Not Detected Stool Astrovirus (PCR) Not Detected Stool Campylobacter PCR Not Detected Stool Cryptosporidium PCR Not Detected Stl Sh Tox Pr E STEC PCR Not Detected Stool E coli O157 PCR Not applicable Stl Enterotoxigenic E PCR Not Detected Stool EPEC (PCR) Not Detected Stool EAEC (PCR) Not Detected Stl E. histolytica PCR Not Detected Stool Giardia Lamblia PCR Not Detected Stl P. shigelloides PCR Not Detected Stool Salmonella PCR Not Detected Stool Sapovirus (PCR) Not Detected Stl Shigella/EIEC PCR Not Detected St Y.enterocolitica PCR Not Detected Stool Vibrio (PCR) Not Detected Stl Vibrio cholerae PCR Not Detected Stl Norovirus GI/GII PCR Not Detected Urine Opiates Screen POSITIVE H Ur Buprenorphine Scrn Positive H Ur Oxycodone Screen Positive H Urine Methadone Screen Not Detected Urine Fentanyl Screen Not Detected Ur Barbiturates Screen POSITIVE H Ur Phencyclidine Scrn Not Detected Ur Amphetamines Screen Not Detected U Benzodiazepines Scrn Not Detected Urine Cocaine Screen POSITIVE H U Marijuana (THC) Screen POSITIVE H Ethyl Alcohol C. difficile Tox B Gene NEGATIVE Assessment and Plan (1) Nausea & vomiting: Status: Acute Assessment and Plan: 34-year-old male history of alcohol use disorder, PTSD else, opiate use disorder anxiety, depression who presents to the emergency department with severe nausea, vomiting and abdominal pain. says used excessive alcohol and snort cocaine as well as marijuana Intractable nausea vomiting unclear etiology: Could be multifactorial-alcohol/marijuana/cocaine use versus also CT abdomen shows question of enterocolitis Stool studies-negative for C diff/GI P panel Bowel rest, IV fluid, Zofran, ppi, pain control with morphine, IV antibiotics, GI evaluation pending. Patient is unable to take p.o.-need IV fluids. GI official evaluation pending, discussed with GI-currently continue above management. Alcohol excessive use-alcohol use disorder, alcohol withdrawals: Slightly tremulous We will give phenobarb 65 mg IM, and continue p.o. phenobarb. CIWA scale Thiamine folic acid, currently does not seem to be withdrawing but considering excessive alcohol use impending withdrawal, added p.o. phenobarb protocol Monitor on tele Addiction evaluation. DVT prophylaxis: SubQ Lovenox Need for ongoing stay: Intractable nausea vomiting/enterocolitis: Unable to take p.o., need IV hydration, IV antibiotics, IV antiemetics, ppi also has possible mild alcohol withdrawal: On phenobarb. Quality Stroke Does the patient have a stroke diagnosis?: No VTE Prior VTE?: No VTE Risk Level:: Medical - moderate - high VTE Device Contraindication: N/A - Device Ordered VTE Drug Contraindication: N/A - Med Ordered
[2025-01-31 15:15] VITALS: BP 144/87; PULSE 67; RESP 18; TEMP 36.5; O2SAT 95
--- NOTE | 2025-01-31 16:22 | MHC.RECOVRN ---
TW met with pt in 385 with the intention to offer support and resources after consult placed to addiction medicine for AUD. On approach pt is in bed, under the blankets but does agree to meet with this casualty underwriter and attempts to pull head from under blanket. Pt is visibly tremulous, diaphoretic, and reports ongoing stomach pain. He is unable to keep eyes open during interview and states he is freezing When questioned about his alcohol use pt is only able to state alot and then reports, I need a suboxone . When asked about opiate use pt states, i've been taking them and begins rocking back and forth. Pt denies current opiate use but states he was taking percocet on the street a year ago and most recently was getting suboxone from the street. It was 8mg . He reports this was 2 days ago. He mentions not following up with the clinic when I got out of the hospital but then pulls blanket over his head and continues to rock back and forth. He is unable or unwilling to answer questions related to current drug use. Primary RN notified of pt presentation, as well as Addiction medicine provider and hospitalist and potential need for suboxone order. ACS team to continue to follow and will revisit pt tomorrow to complete evaluation.
[2025-01-31] MEDS: Lidocaine 4 % Patch ADH..PATCH 2 PATCH TRANSDERMA (17:02)
[2025-01-31 19:31] VITALS: BP 134/86; PULSE 68; RESP 18; TEMP 36.4; O2SAT 97
[2025-01-31] MEDS: 0.9 % Sodium Chloride Flush 3 ML SYRINGE IVFLUSH (22:42)
[2025-02-01 03:45] VITALS: BP 105/59; PULSE 81; RESP 18; TEMP 36.4; O2SAT 98
[2025-02-01 07:36] VITALS: BP 129/72; PULSE 71; RESP 16; TEMP 36.6; O2SAT 98
--- NOTE | 2025-02-01 10:06 | P.PNADD_ITS ---
Subjective Subjective Date of Service: 02/01/25 Reason For Visit: Abd pain Interim History: Patient seen in follow up -seen by city planning teacher over the weekend Admitted with alcohol gastritits. Started to develop opiate withdrawal sx and requested suboxone. Received Suboxone 8mg with positive effect. This morning patient is awake, alert, pleasant and engaged in interview. States he has been buying suboxone on the street, and not really using percocet, though he reports his last use was last week, He reports taking suboxone 8mg everyday or every other day, depending on how he feels. He denies any history of heroin/fentanyl use. Denies history of overdose Only history of MOUD, was here during psychiatric admission when he was tapered using methadone In regards to alcohol use, patient was initiated on phenobarbital protocol and has shown no signs of alcohol withdrawal abdominal pain much improved when seen by t/w Appears to minimizing impact of alcohol/amount of alcohol use Review of Systems Acute medical concerns: Yes Review of Systems Constitutional: Reports as per HPI and Reports no additional constitutional complaints Mental Status Exam Mental Status Exam Level of Consciousness: Awake, Appropriate and Alert Patient Behavior: Appropriate and Talkative Affect Description: Calm Speech Pattern: Clear Thought Process: Intact Thought Content: positive for Intact Judgement: Good Diagnostics Vital Signs (24Hr): Vital Signs - 24 hr 01/31/25 15:15 01/31/25 19:31 02/01/25 03:45 Temperature 97.7 F 97.6 F 97.5 F Pulse Rate 67 68 81 Respiratory Rate 18 18 18 Blood Pressure 144/87 H 134/86 105/59 L Pulse Oximetry 95 97 98 Oxygen Delivery Method Room Air Room Air 02/01/25 07:36 Temperature 97.8 F Pulse Rate 71 Respiratory Rate 16 Blood Pressure 129/72 Pulse Oximetry 98 Oxygen Delivery Method Room Air BMI result Body Mass Index 25.8 Labs 01/31/25 09:46 01/31/25 09:46 Labs: Laboratory Results - last 48 hr 01/30/25 01/30/25 01/30/25 08:21 14:43 23:38 WBC 15.7 H RBC 5.00 Hgb 14.8 Hct 43.4 MCV 86.8 MCH 29.6 MCHC 34.1 RDW 12.0 Plt Count 252 MPV 10.3 Immature Gran % (Auto) 0.3 Neut % (Auto) 82.8 H Lymph % (Auto) 14.9 L [place] % (Auto) 1.8 L Eos % (Auto) 0.1 Baso % (Auto) 0.1 Lymph # (Auto) 2.4 [place] # (Auto) 0.3 Eos # (Auto) 0.0 Baso # (Auto) 0.0 Abs Immat Gran (auto) 0.05 H Absolute Neuts (auto) 13.0 H Absolute Nucleated RBC 0.000 Nucleated RBC % (auto) 0.0 ESR 4 Sodium 145 Potassium 3.6 Chloride 109 H Carbon Dioxide 23 Anion Gap 17 BUN 13 Creatinine 0.74 Estim Creat Clear Calc 141.9 Estimated GFR > 60 POC Glucose 90 Random Glucose 117 H Lactic Acid 0.9 Calcium 9.3 Total Bilirubin 0.2 AST 24 ALT 18 Alkaline Phosphatase 73 C-Reactive Protein < 0.10 Total Protein 8.1 H Albumin 4.8 Lipase 29 Stl C. cayetanensis PCR Stool Rotavirus A PCR Stl Adenov F 40/41 PCR Stool Astrovirus (PCR) Stool Campylobacter PCR Stool Cryptosporidium PCR Stl Sh Tox Pr E STEC PCR Stool E coli O157 PCR Stl Enterotoxigenic E PCR Stool EPEC (PCR) Stool EAEC (PCR) Stl E. histolytica PCR Stool Giardia Lamblia PCR Stl P. shigelloides PCR Stool Salmonella PCR Stool Sapovirus (PCR) Stl Shigella/EIEC PCR St Y.enterocolitica PCR Stool Vibrio (PCR) Stl Vibrio cholerae PCR Stl Norovirus GI/GII PCR Urine Opiates Screen Ur Buprenorphine Scrn Ur Oxycodone Screen Urine Methadone Screen Urine Fentanyl Screen Ur Barbiturates Screen Ur Phencyclidine Scrn Ur Amphetamines Screen U Benzodiazepines Scrn Urine Cocaine Screen U Marijuana (THC) Screen Ethyl Alcohol 104 C. difficile Tox B Gene 01/30/25 01/31/25 01/31/25 23:52 09:46 10:11 WBC 9.5 RBC 4.58 L Hgb 13.6 L Hct 39.2 L MCV 85.6 MCH 29.7 MCHC 34.7 RDW 11.9 Plt Count 214 MPV 9.5 Immature Gran % (Auto) Neut % (Auto) Lymph % (Auto) [place] % (Auto) Eos % (Auto) Baso % (Auto) Lymph # (Auto) [place] # (Auto) Eos # (Auto) Baso # (Auto) Abs Immat Gran (auto) Absolute Neuts (auto) Absolute Nucleated RBC 0.000 Nucleated RBC % (auto) 0.0 ESR Sodium 141 Potassium 3.7 Chloride 105 Carbon Dioxide 27 Anion Gap 13 BUN 15 Creatinine 0.93 Estim Creat Clear Calc 112.9 Estimated GFR > 60 POC Glucose Random Glucose 91 Lactic Acid Calcium 8.8 Total Bilirubin AST ALT Alkaline Phosphatase C-Reactive Protein Total Protein Albumin Lipase Stl C. cayetanensis PCR Not Detected Stool Rotavirus A PCR Not Detected Stl Adenov F 40/41 PCR Not Detected Stool Astrovirus (PCR) Not Detected Stool Campylobacter PCR Not Detected Stool Cryptosporidium PCR Not Detected Stl Sh Tox Pr E STEC PCR Not Detected Stool E coli O157 PCR Not applicable Stl Enterotoxigenic E PCR Not Detected Stool EPEC (PCR) Not Detected Stool EAEC (PCR) Not Detected Stl E. histolytica PCR Not Detected Stool Giardia Lamblia PCR Not Detected Stl P. shigelloides PCR Not Detected Stool Salmonella PCR Not Detected Stool Sapovirus (PCR) Not Detected Stl Shigella/EIEC PCR Not Detected St Y.enterocolitica PCR Not Detected Stool Vibrio (PCR) Not Detected Stl Vibrio cholerae PCR Not Detected Stl Norovirus GI/GII PCR Not Detected Urine Opiates Screen POSITIVE H Ur Buprenorphine Scrn Positive H Ur Oxycodone Screen Positive H Urine Methadone Screen Not Detected Urine Fentanyl Screen Not Detected Ur Barbiturates Screen POSITIVE H Ur Phencyclidine Scrn Not Detected Ur Amphetamines Screen Not Detected U Benzodiazepines Scrn Not Detected Urine Cocaine Screen POSITIVE H U Marijuana (THC) Screen POSITIVE H Ethyl Alcohol C. difficile Tox B Gene NEGATIVE Medications Medications Current Medications Acetaminophen (Acetaminophen 325 Mg Tablet) 650 mg PO Q6H PRN PRN Reason: Pain, Mild 1-3,fever,headache Amoxicillin/Clavulanate Potassium (Amoxicillin/Potassium Clav 875 Mg Tablet) 875 mg PO BID [facility] Last Admin: 02/01/25 08:49 Dose: 875 mg Calcium Carbonate (Calcium Carbonate 750 Mg Tab.Chew) 750 mg PO Q4H PRN PRN Reason: Heartburn Capsaicin (Capsaicin 0.025% Cream 60 Gm Tube) 1 appl TOPICAL QID PRN; Protocol PRN Reason: Pain, Severe (Pain Scale 7-10) Enoxaparin Sodium (Enoxaparin Sodium 40 Mg/0.4 Ml Syringe) 40 mg SUBCUT Q24H [facility] Last Admin: 01/31/25 16:27 Dose: 40 mg Lactated Ringer's (Lr) 1,000 mls @ 100 mls/hr IVCONT .Q10H [facility] Last Admin: 02/01/25 08:50 Dose: Not Given Piperacillin Sod/Tazobactam (Sod 3.375 gm/ Sodium Chloride) 50 mls @ 100 mls/hr IV Q6H [facility] Last Infusion: 02/01/25 04:53 Dose: Infused Lidocaine (Lidocaine 4 % Patch Adh..Patch) 2 patch TRANSDERMA DAILY [facility]; Protocol Last Admin: 02/01/25 08:53 Dose: Not Given Magnesium Hydroxide (Milk Of Magnesia 30 Ml Oral.Susp) 30 ml PO DAILY PRN PRN Reason: Constipation Melatonin (Melatonin 3 Mg Tablet) 6 mg PO BEDTIME PRN PRN Reason: Insomnia Last Admin: 01/31/25 20:28 Dose: 6 mg Ondansetron HCl (Ondansetron Hcl 4 Mg/2 Ml Vial) 4 mg IVPUSH Q4H PRN PRN Reason: Nausea and Vomiting Last Admin: 01/31/25 13:44 Dose: 4 mg Pantoprazole Sodium (Pantoprazole Sodium 40 Mg/10 Ml Vial) 40 mg IVPUSH BID [facility] Last Admin: 02/01/25 08:48 Dose: 40 mg Pharmacy Consult (Consult Rx Etoh Phenob Po Only) 1 each MISCELLANE ONCE PRN; Protocol PRN Reason: Consult order Phenobarbital (Phenobarbital 15 Mg Tablet) 45 mg PO BID [facility] Stop: 02/01/25 21:01 Last Admin: 02/01/25 08:49 Dose: 45 mg Phenobarbital (Phenobarbital 30 Mg Tablet) 30 mg PO BID [facility] Stop: 02/03/25 21:01 Phenobarbital (Phenobarbital 15 Mg Tablet) 15 mg PO DAILY [facility] Stop: 02/05/25 09:01 Sodium Chloride (0.9 % Sodium Chloride Flush 3 Ml Syringe) 3 ml IVFLUSH QSHIFT [facility] Last Admin: 02/01/25 05:19 Dose: Not Given Thiamine HCl (Thiamine Hcl 100 Mg Tablet) 100 mg PO DAILY [facility] Last Admin: 02/01/25 08:52 Dose: 100 mg Allergies Allergies Allergy/AdvReac Type Severity Reaction Status Date / Time tizanidine Allergy Unknown hives Verified 01/30/25 08:13 Assessment & Plan Assessment & Plan (1) Opioid use disorder: Status: Acute Code(s): F11.90 - Opioid use, unspecified, uncomplicated Assessment and Plan: * suboxone 8mg QD * city planning teacher to coordinate [facility] * [place] [facility] [place] request * take home narcan Total time managing care of this patient today _30___ minutes.
--- NOTE | 2025-02-01 11:14 | MHC.CM.PN ---
Patient medically cleared for dc home self care via private transport
--- NOTE | 2025-02-01 12:11 | MHC.CM.PN ---
Per MD rounds, patient not medically cleared for dc. CM will continue to follow.
--- NOTE | 2025-02-01 13:14 | MHC.RECOVRN ---
Pt declined to meet with the ACS team in regards to his substance use. Denied withdrawal symptoms & stated he is not interested in MAT.
--- NOTE | 2025-02-01 13:47 | P.PNIM_ITS ---
Subjective Subjective Date of Service: 02/01/25 Interval History: persistent nausea /vomiting Review of Systems feels nauseated vomited alot after eating breakfast hesttant to take po Review of Systems: Yes all other systems are reviewed and are negative Physical Exam 2 Exam: Exam: Appearance: Alert.? Oriented X3.? cvs: rrr, [id number] , no murmur res: clear to auscultation ,no rhonchii or wheezing abd: no rebound or guarding ,most epigastric pain, bs present. ext pulses present , no cyanosis. neuro: axo3 , nonfocal. Vital Signs: Vital Signs: Last Vital Signs Temp 97.8 F 02/01/25 07:36 Pulse 71 02/01/25 07:36 Resp 16 02/01/25 07:36 BP 129/72 02/01/25 07:36 Pulse Ox 98 02/01/25 07:36 O2 Del Method Room Air 02/01/25 07:36 BMI result Body Mass Index 25.8 Objective Data Active Medications Acetaminophen (Acetaminophen 325 Mg Tablet) 650 mg PO Q6H PRN PRN Reason: Pain, Mild 1-3,fever,headache Amoxicillin/Clavulanate Potassium (Amoxicillin/Potassium Clav 875 Mg Tablet) 875 mg PO BID [facility] Last Admin: 02/01/25 08:49 Dose: 875 mg Documented By: BOB Buprenorphine/Naloxone (Buprenorphine/Naloxone 8/2 Mg Film) 1 film SUBLINGUAL DAILY [facility] Calcium Carbonate (Calcium Carbonate 750 Mg Tab.Chew) 750 mg PO Q4H PRN PRN Reason: Heartburn Capsaicin (Capsaicin 0.025% Cream 60 Gm Tube) 1 appl TOPICAL QID PRN; Protocol PRN Reason: Pain, Severe (Pain Scale 7-10) Enoxaparin Sodium (Enoxaparin Sodium 40 Mg/0.4 Ml Syringe) 40 mg SUBCUT Q24H [facility] Last Admin: 01/31/25 16:27 Dose: 40 mg Documented By: ZAIRE Lactated Ringer's (Lr) 1,000 mls @ 100 mls/hr IVCONT .Q10H [facility] Last Admin: 02/01/25 08:50 Dose: Not Given Documented By: BOB Non-Admin Reason: IV Running Piperacillin Sod/Tazobactam (Sod 3.375 gm/ Sodium Chloride) 50 mls @ 100 mls/hr IV Q6H [facility] Last Infusion: 02/01/25 12:12 Dose: Infused Documented By: BOB Lidocaine (Lidocaine 4 % Patch Adh..Patch) 2 patch TRANSDERMA DAILY [facility]; Protocol Last Admin: 02/01/25 08:53 Dose: Not Given Documented By: BOB Non-Admin Reason: Patient Refused Magnesium Hydroxide (Milk Of Magnesia 30 Ml Oral.Susp) 30 ml PO DAILY PRN PRN Reason: Constipation Melatonin (Melatonin 3 Mg Tablet) 6 mg PO BEDTIME PRN PRN Reason: Insomnia Last Admin: 01/31/25 20:28 Dose: 6 mg Documented By: TUMVALERIO Ondansetron HCl (Ondansetron Hcl 4 Mg/2 Ml Vial) 4 mg IVPUSH Q4H PRN PRN Reason: Nausea and Vomiting Last Admin: 01/31/25 13:44 Dose: 4 mg Documented By: ZAIRE Pantoprazole Sodium (Pantoprazole Sodium 40 Mg/10 Ml Vial) 40 mg IVPUSH BID [facility] Last Admin: 02/01/25 08:48 Dose: 40 mg Documented By: BOB Pharmacy Consult (Consult Rx Etoh Phenob Po Only) 1 each MISCELLANE ONCE PRN; Protocol PRN Reason: Consult order Phenobarbital (Phenobarbital 15 Mg Tablet) 45 mg PO BID [facility] Stop: 02/01/25 21:01 Last Admin: 02/01/25 08:49 Dose: 45 mg Documented By: BOB Phenobarbital (Phenobarbital 30 Mg Tablet) 30 mg PO BID [facility] Stop: 02/03/25 21:01 Phenobarbital (Phenobarbital 15 Mg Tablet) 15 mg PO DAILY [facility] Stop: 02/05/25 09:01 Sodium Chloride (0.9 % Sodium Chloride Flush 3 Ml Syringe) 3 ml IVFLUSH QSHIFT [facility] Last Admin: 02/01/25 05:19 Dose: Not Given Documented By: BOB Non-Admin Reason: IV Running Thiamine HCl (Thiamine Hcl 100 Mg Tablet) 100 mg PO DAILY [facility] Last Admin: 02/01/25 08:52 Dose: 100 mg Documented By: BOB Labs 01/31/25 09:46 01/31/25 09:46 Microbiology Microbiology Results: Microbiology 01/30/25 14:53 Blood Culture - Preliminary Blood - Venous No growth after 24 hours. 01/30/25 14:43 Blood Culture - Preliminary Blood - Venous No growth after 24 hours. Assessment and Plan (1) Nausea & vomiting: Status: Acute Plan 34-year-old male history of alcohol use disorder, PTSD else, opiate use disorder anxiety, depression who presents to the emergency department with severe nausea, vomiting and abdominal pain. says used excessive alcohol and snort cocaine as well as marijuana Intractable nausea vomiting unclear etiology: Could be multifactorial- alcohol/marijuana/cocaine use versus also CT abdomen shows question of enterocolitis Stool studies-negative for C diff/GI P panel Bowel rest, IV fluid, Zofran, ppi, pain control with morphine, IV antibiotics, GI evaluation pending. Patient is unable to take p.o.-need IV fluids. GI official evaluation pending, discussed with GI-currently continue above management. Alcohol excessive use-alcohol use disorder, alcohol withdrawals: Slightly tremulous continue p.o. phenobarb. CIWA scale-2 Thiamine folic acid, currently does not seem to be withdrawing but considering excessive alcohol use impending withdrawal, added p.o. phenobarb protocol Monitor on tele Addiction evaluation. DVT prophylaxis: SubQ Lovenox Need for ongoing stay: Intractable nausea vomiting/enterocolitis: Unable to take p.o., need IV hydration, IV antibiotics, IV antiemetics, ppi also has possible mild alcohol withdrawal: On phenobarb. Quality Stroke Does the patient have a stroke diagnosis?: No VTE Prior VTE?: No VTE Risk Level:: Medical - moderate - high VTE Device Contraindication: N/A - Device Ordered VTE Drug Contraindication: N/A - Med Ordered
[2025-02-01 15:09] VITALS: BP 107/52; PULSE 87; RESP 18; TEMP 36.6; O2SAT 97
[2025-02-01 19:21] VITALS: BP 112/62; PULSE 73; RESP 18; TEMP 36.6; O2SAT 97
[2025-02-01] MEDS: 0.9 % Sodium Chloride Flush 3 ML SYRINGE IVFLUSH (20:24)
[2025-02-02 03:21] VITALS: BP 126/82; PULSE 64; RESP 18; TEMP 36.5; O2SAT 97
[2025-02-02 07:28] VITALS: BP 141/99; PULSE 71; RESP 16; TEMP 36.7; O2SAT 100
--- NOTE | 2025-02-02 08:31 | MHC.CM.PN ---
Patient medically cleared for dc home self care via private transport
--- NOTE | 2025-02-02 08:57 | PC.NURSE ---
Pt left before able to provide home Narcan given; Micaela Gee notified.
== END 2025-02-02 08:48 | disposition home or self-care (01) | DRG 241 ==
LOC: HO.ED 16:15 → HO.EDOVER 16:28 → HO.S3 16:39
PROVIDERS: Nurse Practitioner Family; Physician Assistant; Admitting Provider Internal Medicine; Emergency Provider Emergency Medicine; Visit Provider Internal Medicine
DX: K29.20 Alcoholic gastritis without bleeding (principal); F10.929 Alcohol use, unspecified with intoxication, unspecified; F11.20 Opioid dependence, uncomplicated; F10.939 Alcohol use, unspecified with withdrawal, unspecified; F12.90 Cannabis use, unspecified, uncomplicated; R11.16 Cannabis hyperemesis syndrome; F17.210 Nicotine dependence, cigarettes, uncomplicated; Z71.6 Tobacco abuse counseling; Y90.5 Blood alcohol level of 100-119 mg/100 ml; F43.10 Post-traumatic stress disorder, unspecified; Z79.899 Other long term (current) drug therapy
CPT/HCPCS: 36415; 74177; 76705; 80048; 80053; 80307; 82947; 83605; 83690; 85025; 85027; 85652; 86140; 87040; 87493; 87507; 93005; 99285; J1200; J1630; J1650; J1808; J2270; J2405; J2470; J2543; J2560; J2765; J3411; J7120; Q9967; S9485

== ENCOUNTER → 2025-01-30 08:28 | Outpatient (BNV) | payer OTHER, SELFPAY | PROVIDERS: Emergency Provider Emergency Medicine; PCP Internal Medicine; Visit Provider Radiology Diagnostic Radiology | DX: K52.9 Noninfective gastroenteritis and colitis, unspecified (principal); R10.31 Right lower quadrant pain | CPT/HCPCS: 74177; 76705 ==

== ENCOUNTER → 2025-01-30 16:15 | Outpatient (BNV) | payer OTHER, SELFPAY | PROVIDERS: Admitting Provider Internal Medicine; Emergency Provider Emergency Medicine; PCP Internal Medicine; Visit Provider Internal Medicine Cardiovascular Disease | DX: R94.31 Abnormal electrocardiogram [ECG] [EKG] (principal); Z13.6 Encounter for screening for cardiovascular disorders | CPT/HCPCS: 93010 ==

== ENCOUNTER → 2025-01-30 16:24 | Outpatient (BNV) | payer OTHER, SELFPAY | PROVIDERS: Admitting Provider Internal Medicine; Emergency Provider Emergency Medicine; PCP Internal Medicine; Visit Provider Internal Medicine Gastroenterology | DX: R11.2 Nausea with vomiting, unspecified (principal) | CPT/HCPCS: 99223 ==

== ENCOUNTER → 2025-01-30 16:24 | Outpatient (BNV) | payer OTHER, SELFPAY | PROVIDERS: Admitting Provider Internal Medicine; Emergency Provider Emergency Medicine; PCP Internal Medicine; Visit Provider Internal Medicine | DX: R11.2 Nausea with vomiting, unspecified (principal) | CPT/HCPCS: 99222; 99231; 99232; 99239 ==

== ENCOUNTER → 2025-01-30 16:24 | Outpatient (BNV) | payer OTHER, SELFPAY | PROVIDERS: Admitting Provider Internal Medicine; Emergency Provider Emergency Medicine; PCP Internal Medicine; Visit Provider Nurse Practitioner Psychiatric/Mental Health | DX: F11.90 Opioid use, unspecified, uncomplicated (principal) | CPT/HCPCS: 99232 ==